=== PATIENT | female | born 1930 | race Caucasian/White ===

== ENCOUNTER 2016-11-20 12:58 | Emergency (ER) | payer MEDICARE ==
--- NOTE | 2016-11-20 13:28 | ED ---
General Adult HPI - General Chief complaint: Abdominal Pain Stated complaint: Poss Bowel Obstruction Time Seen by Provider: 11/20/16 13:08 Source: patient, RN notes reviewed Mode of arrival: ambulatory Limitations: no limitations - History of Present Illness Initial comments: Chief complaint history of present illness is 89-year-old female here with a complaint of no bowel movement for several days. She reports her last normal bowel movement was 2360. Otherwise she normally has loose stools. She said initially it looks like rope and then became wormlike and then just watery. Denies any cramping or pain but feels bloated. This does not change her appetite. No significant change in weight. She has seen her wholesale parts salesperson in the past 2 weeks. When she called the office and stated she had not bowel movement for several days suggested she try to use magnesium citrate. She states she continued to have loose stool only. - Related Data Home Medications Medication Instructions Recorded Confirmed Artificial Tears-Hypromellose 1 drop BOTH EYES QID PRN 11/20/16 11/20/16 [Artificial Tear Drops] Calcium Carbonate [Calcium] 600 mg PO DAILY 11/20/16 11/20/16 Levothyroxine Sodium [Synthroid] 50 mcg PO DAILY 11/20/16 11/20/16 Magnesium Oxide [Mag-Ox] 400 mg PO DAILY 11/20/16 11/20/16 [place]-3 Fatty Acids/Fish Oil [Fish 1 cap PO DAILY 11/20/16 11/20/16 Oil 1,000 mg Softgel] Vit C/E/Zn/Coppr/Lutein/Zeaxan 1 cap PO DAILY 11/20/16 11/20/16 [Preservision Areds 2 Softgel] Allergies Allergy/AdvReac Type Severity Reaction Status Date / Time No Known Allergies Allergy Verified 11/20/16 13:40 Review of Systems ROS Statement: Those systems with pertinent positive or pertinent negative responses have been documented in the HPI. Review of systems. Patient denies any headache no visual acuity changes no chest pain or shortness of breath. No difficulty urinating. States she feels bloated. Has had for months on-again off-again loose stool. Has seen her wholesale parts salesperson several times during that time. Last colonoscopy was 5 years ago. Her biggest complaint is feeling bloated. Denies pain. Denies change in appetite. All systems reviewed. Past medical problems hypothyroidism. Surgeries right elbow after an injury. Cataract surgery. Denies any other surgeries. Family history no cancers. Patient denies ALLERGIES nonsmoker drinks rarely socially. ROS Other: All systems not noted in ROS Statement are negative. Past Medical History Past Medical History: Thyroid Disorder History of Any Multi-Drug Resistant Organisms: None Reported Past Surgical History: Orthopedic Surgery Additional Past Surgical History / Comment(s): right elbow surgery Past Psychological History: No Psychological Hx Reported Smoking Status: Never smoker Past Alcohol Use History: None Reported Past Drug Use History: None Reported General Exam - General Exam Comments Initial Comments: General: The patient is awake and alert, in no distress, and does not appear acutely ill. Chief complaint is loose stool and bloating. No pain. No change in appetite. Vital signs temperature 97.4 pulse 69 respiratory rate 18 pulse ox 96 % room air blood pressure 114/64 Eye: Pupils are equal, round and reactive to light, extra-ocular movements are intact ; there is normal conjunctiva bilaterally. No signs of icterus. Evidence of cataract surgery. Ears, nose, mouth and throat: There are moist mucous membranes and no oral lesions. Neck: The neck is supple, there is no tenderness. Cardiovascular: There is a regular rate and rhythm. No murmur, rub or gallop is appreciated. Respiratory: Lungs are clear to auscultation, respirations are non-labored, breath sounds are equal. No wheezes, stridor, rales, or rhonchi. Gastrointestinal: Soft, non-tender abdomen without masses or organomegaly noted. She does appear bloated but not uncomfortable. There is no rebound or guarding present. No CVA tenderness. Bowel sounds are unremarkable. Back: There is no tenderness to palpation in the midline. There is no obvious deformity. No rashes noted. Musculoskeletal: Normal ROM, no tenderness, There is no pedal edema. There is no calf tenderness or swelling. Sensation intact. Pulses equal bilaterally 2+. Neurological: No neuro deficits, denies any balance problems. Alert and oriented. Skin: Skin is warm and dry and no rashes or lesions are noted. Limitations: no limitations Course Vital Signs 11/20/16 13:00 Temperature 97.4 F L Pulse Rate 69 Respiratory 18 Rate Blood Pressure 114/64 O2 Sat by Pulse 96 Oximetry Medical Decision Making - Medical Decision Making Medical decision making patient's white count 4.1 hemoglobin 12 hematocrit 37. Potassium 4.5. BUN 18 creatinine 0.84 the GFR greater than 60. Glucose 88. Amylase mildly elevated 145. Lipase 247. X-ray of the abdomen were done and reviewed by radiologist his impression is there is moderate S St. scoliosis convex to the right paralumbar region and to the left midthoracic region. Lung bases are clear. There are multiple nondistended loops of large and small bowel throughout the abdomen. There are multiple air-fluid levels. There is no free air. There are phleboliths within the pelvis. Impression; findings most consistent with generalized ileus. As read by Dr. Yip Examination was done with the help of Tonja JUAREZ. Anus was tight but no masses palpable within the examining finger. Stool was negative for stool guaiac. A she will be told to continue with her daily diet use Gaviscon to decrease gassy buildup with the food she is eating. She again denies any abdominal pain just below. Passes gas daily and has loose stool daily. - Lab Data Result diagrams: 11/20/16 13:41 11/20/16 13:41 Lab Results 11/20/16 11/20/16 Range/Units 13:41 13:41 WBC 4.1 (3.8-10.6) k/uL RBC 3.63 L (3.80-5.40) m/uL Hgb 12.4 (11.4-16.0) gm/dL Hct 37.5 (34.0-46.0) % MCV 103.4 H (80.0-100.0) fL MCH 34.3 (25.0-35.0) pg MCHC 33.2 (31.0-37.0) g/dL RDW 14.7 (11.5-15.5) % Plt Count 293 (150-450) k/uL Neutrophils % 63 % Lymphocytes % 26 % Monocytes % 8 % Eosinophils % 1 % Basophils % 0 % Neutrophils # 2.6 (1.3-7.7) k/uL Lymphocytes # 1.1 (1.0-4.8) k/uL Monocytes # 0.3 (0-1.0) k/uL Eosinophils # 0.0 (0-0.7) k/uL Basophils # 0.0 (0-0.2) k/uL Macrocytosis Slight Sodium 135 L (137-145) mmol/L Potassium 4.5 (3.5-5.1) mmol/L Chloride 102 (98-107) mmol/L Carbon Dioxide 23 (22-30) mmol/L Anion Gap 10 mmol/L BUN 18 H (7-17) mg/dL Creatinine 0.84 (0.52-1.04) mg/dL Est GFR (MDRD) Af Amer >60 (>60 ml/min/1.73 sqM) Est GFR (MDRD) Non-Af >60 (>60 ml/min/1.73 sqM) Glucose 88 (74-99) mg/dL Calcium 9.0 (8.4-10.2) mg/dL Total Bilirubin 0.5 (0.2-1.3) mg/dL AST 26 (14-36) U/L ALT 30 (9-52) U/L Alkaline Phosphatase 57 (38-126) U/L Total Protein 6.8 (6.3-8.2) g/dL Albumin 4.0 (3.5-5.0) g/dL Amylase 145 H (30-110) U/L Lipase 247 (23-300) U/L Disposition Clinical Impression: Frequent loose stools Disposition: HOME SELF-CARE Condition: Fair Instructions: Chronic Diarrhea (ED) Additional Instructions: Follow with her family physician, follow-up with your wholesale parts salesperson. Use Gaviscon, and Pepto-Bismol control loose stool. Referrals: Jn Morris MD [Primary Care Provider] - 1-2 days Time of Disposition: 14:40
[2016-11-20 13:56] LABS: Basophils % (A) 0 %; CH 35.1; CHCM 34.1; Eosinophils % (A) 1 %; HCT 37.5 % (34.0-46.0); HDW 2.25; HGB 12.4 gm/dL (11.4-16.0); Luc # (Auto) 0.08; Luc % (Auto) 2; Lymphocytes # (A) 1.1 k/uL (1.0-4.8); Lymphocytes % (A) 26 %; MCH 34.3 pg (25.0-35.0); MCHC 33.2 g/dL (31.0-37.0); MCV 103.4 fL (80.0-100.0); Macrocytosis Slight; Mean Platelet Volume 7.3; Monocytes # (A) 0.3 k/uL (0-1.0); Monocytes % (A) 8 %; Neutrophils # (A) 2.6 k/uL (1.3-7.7); Neutrophils % (A) 63 %; RBC 3.63 m/uL (3.80-5.40); RDW 14.7 % (11.5-15.5); WBC 4.1 k/uL (3.8-10.6); WBC (Perox) 4.24
--- NOTE | 2016-11-20 14:02 | XR ---
EXAMINATION TYPE: XR abdomen complete w decub , 3 VIEWS DATE OF EXAM ORDERED: 11/20/2016 HISTORY: Usually has loose stool, feels bloated. COMPARISON: None. FINDINGS: There is a moderate S-shaped scoliosis convex to the right in the lumbar region and to the left in the thoracic region. The lung bases are clear. There are multiple nondistended loops of large and small bowel throughout the abdomen. There are mult iple air-fluid levels. There is no free air. There are phleboliths within the pelvis. IMPRESSION: FINDINGS MOST CONSISTENT WITH GENERALIZED ILEUS.
[2016-11-20 14:05] LABS: ALT 30 U/L (9-52); AST 26 U/L (14-36); Alkaline Phosphatase 57 U/L (38-126); Amylase 145 U/L (30-110); Anion Gap 10 mmol/L; Blood Urea Nitrogen 18 mg/dL (7-17); Carbon Dioxide 23 mmol/L (22-30); Chloride 102 mmol/L (98-107); Glucose 88 mg/dL (74-99); Non-African American GFR(MDRD) >60 (>60 ml/min/1.73 sqM); Potassium 4.5 mmol/L (3.5-5.1); Sodium 135 mmol/L (137-145); Total Bilirubin 0.5 mg/dL (0.2-1.3); Total Protein 6.8 g/dL (6.3-8.2)
[2016-11-20 15:02] VITALS: BP 139/78; PULSE 80; RESP 20; TEMP 98.5
== END 2016-11-20 15:02 | disposition home or self-care (01) ==
LOC: EC 12:58
DX: R19.7 Diarrhea, unspecified (principal); E07.9 Disorder of thyroid, unspecified; Z79.899 Other long term (current) drug therapy
CPT/HCPCS: 36415; 74020; 80053; 82150; 83690; 85025; 99284

== ENCOUNTER 2017-03-16 03:20 | Inpatient (IN) | payer MEDICARE ==
[2017-03-16] MEDS ORDERED: HYDROmorphone 0.5 MG/0.5 ML SYRINGE ONE (04:30)
--- NOTE | 2017-03-16 06:27 | XR ---
EXAM: XR Chest, 1 View CLINICAL HISTORY: No prior, left hip pain after fall TECHNIQUE: Frontal view of the chest. COMPARISON: No relevant prior studies available. FINDINGS: Lungs: Unremarkable. No consolidation. Pleural space: Unremarkable. No pneumothorax. Heart: Mild cardiomegaly. Mediastinum: Unremarkable. Bones/joints: Unremarkable. Other findings: IMPRESSION: No acute findings.
--- NOTE | 2017-03-16 06:28 | XR ---
EXAM: XR Left Hip With Pelvis When Performed, 2 or 3 Views CLINICAL HISTORY: No prior, left hip pain after fall TECHNIQUE: Two or three views of the left hip, with pelvis when performed. COMPARISON: No relevant prior studies available. FINDINGS: Comminuted intertrochanteric fracture of the left hip. lesser trochanteric fragment noted. Femoral acetabular joints are intact bilaterally. Severe right hip arthrosis noted. Pelvic ring is intact. Soft tissues are within normal limits. IMPRESSION: Comminuted intertrochanteric fracture of the left hip. lesser trochanteric fragment noted.
[2017-03-16] MEDS ORDERED: SODIUM CHLORIDE 0.9% 1,000 ML IV SCH (08:30)
[2017-03-16] MEDS ORDERED: ONDANSETRON 4 MG/2 ML VIAL IVP PRN (09:22)
[2017-03-16 09:23] LABS: HCT 30.8 % (34.0-46.0); HGB 10.1 gm/dL (11.4-16.0); MCH 33.1 pg (25.0-35.0); MCHC 32.7 g/dL (31.0-37.0); MCV 101.3 fL (80.0-100.0); Macrocytosis Slight; Mean Platelet Volume 7.9; Platelet Count 203 k/uL (150-450); RBC 3.04 m/uL (3.80-5.40); RDW 14.9 % (11.5-15.5); WBC 3.4 k/uL (3.8-10.6)
--- NOTE | 2017-03-16 09:53 | CONS ---
CONSULTATION ATTENDING PHYSICIAN: Dr. Plascencia. CONSULTING PHYSICIAN: Dr. Kiran Morris. REASON FOR CONSULTATION: Consultation regarding preop medical evaluation. HISTORY OF PRESENT ILLNESS: This is an 86-year-old female was brought to the emergency room after a fall at home. She got up to go to the bathroom, felt unsteady, fell. She denied any headache, dizziness, vertigo. She did have loss of balance. Denied any other injuries or loss of consciousness, etc. She does have a small laceration of the left elbow. The patient upon evaluation was noted to have an intertrochanteric left hip fracture. The patient is admitted to the hospital in view of this. I have been asked to see the patient preoperatively. PAST MEDICAL HISTORY: Primarily negative for any major illnesses. The patient has no history of hypertension, diabetes, any lung disease, liver disease, kidney disease. No history of any ulcers, TB, hepatitis. No history of any rheumatic fever, myocardial infarction, CVA. No history of any peripheral arterial disease. She does have history of hypothyroidism, on medical replacement therapy in a euthyroid status. Also history of IBS with predominant constipation. The patient has been seen by GI and does follow with them. PAST SURGICAL HISTORY: Significant for a right elbow surgery. Otherwise, no other surgeries. No complications during the surgery. PERSONAL HISTORY: A nonsmoker. Alcohol occasional social. ALLERGIES: None known. MEDICATIONS: Include multivitamins, eye vitamins, magnesium, levothyroxine 50 mcg daily, calcium 600 mg daily, and uses Artificial Tears. SOCIAL HISTORY: Patient is , lives alone. FAMILY MEDICAL HISTORY: Has 2 sons and daughter in good health. One son had necrotizing fasciitis at 1 time, doing better. REVIEW OF SYSTEMS: Neuro denies any headaches, dizziness. No double vision. Does have decreased vision due to macular degeneration. CARDIAC: No chest pain, angina, palpitations. Respiratory: Short of breath. Has had a recent cold congestion and had been on Augmentin. GI no nausea, vomiting, abdominal pain, diarrhea. Has chronic constipation, uses MiraLAX and Senokot combinations with Linzess off and on. : No symptoms of dysuria, hematuria, urgency, frequency. Extremities denies edema. Does have pain in the left hip. CONSTITUTIONAL: No fever chills. Hematological: No anemia or bleeding disorder. Endocrine: No history of diabetes mellitus, history of hypothyroidism, on replacement therapy. SKIN: No breakdown. No skin ulcerations. CONSTITUTIONAL: No fever chills. PHYSICAL EXAMINATION: Pleasant 86-year-old female, at present, no distress. Vital signs reveals temperature 98.5, pulse 73, respirations 16, blood pressure 115/61, pulse ox 94%. HEENT: Normocephalic. NECK: Supple. No JVD. No carotid bruits. No thyromegaly. CHEST: Clear to auscultation. Cardiac: Normal S1, S2 with no gallops, murmurs, regular rhythm. ABDOMEN: Soft. No palpable masses. Bowel sounds normal. No organomegaly. No abdominal bruits. Extremities reveal no edema. The patient left leg immobilized. The patient left leg lying flat with the patient moving right hip. NEUROLOGIC: Awake, alert, oriented x3 with well coordinated movements upper extremities. Superficial laceration, left elbow. LABORATORY ASSESSMENT: None. EKG reveals sinus rhythm at 72 with a baseline artifacts. The patient's chest x- ray reveals no acute process. ASSESSMENT: 1. Left hip fracture. 2. History of hypothyroidism. 3. History of age-related macular degeneration, with decreased vision. 4. History of irritable bowel syndrome with chronic constipation. PLAN: Patient is stable to undergo the planned surgical procedure. Lab evaluations to be done. Patient will be hydrated. The patient's condition is discussed with the patient and daughter. The daughter is a nurse. Prognosis remains guarded. Will require rehabilitation. MMODL / IJN: [id number] /
[2017-03-16] MEDS: HYDROmorphone 0.5 MG/0.5 ML SYRINGE IVP PRN ×2 (10:07→23:33)
[2017-03-16] MEDS: SODIUM CHLORIDE 0.9% 1,000 ML IV SCH (10:11)
[2017-03-16 10:23] LABS: Anion Gap 11 mmol/L; Blood Urea Nitrogen 19 mg/dL (7-17); Calcium 8.2 mg/dL (8.4-10.2); Carbon Dioxide 22 mmol/L (22-30); Chloride 96 mmol/L (98-107); Glucose 103 mg/dL (74-99); Sodium 129 mmol/L (137-145)
--- NOTE | 2017-03-16 10:33 | P.HPOR ---
History of Present Illness H&P Date: 03/16/17 Chief Complaint: Left intertrochanteric hip fracture Patient is an 86-year-old female who presented to [facility] emergency room late last night with regards to a left hip injury. Patient apparently was going to the bathroom at home, when she got up she lost her balance and fell. She was unable to weight-bear after the fall, she was able to crawl to her falling contact her family. EMS to arrive, and to bring the patient to [facility]. Upon arrival, imaging and lab tests were done. Images demonstrated a minimally displaced left intertrochanteric hip fracture. Dr. Plascencia was contacted by the emergency room staff, the case was discussed. Patient was admitted under orthopedic care, internal medicine consult was placed for clearance. Patient was examined today on the surgical floor, she was lying in bed. She appears comfortable. She notes pain in the left hip with motion. She does note minimal pain involving the right knee. She actually have an appointment scheduled today to see Dr. Plascencia in the outpatient setting for her left shoulder. She notes no acute pain involving the bilateral upper extremities, cervical, thoracic or lumbar spine, right lower extremity. Patient states she does live at home by herself. She uses no assistive devices for ambulation. She does have a daughter and [id number] that around to help her. Patient denies any headaches, lightheadedness, chest pain, shortness of breath, abdominal discomfort, fever or chills. Review of Systems Constitutional: Reports as per HPI Past Medical History Past Medical History: Thyroid Disorder History of Any Multi-Drug Resistant Organisms: None Reported Past Surgical History: Orthopedic Surgery Additional Past Surgical History / Comment(s): right elbow surgery BACK SURGERY 1999 Smoking Status: Never smoker Medications and Allergies Home Medications Medication Instructions Recorded Confirmed Type Artificial Tears-Hypromellose 1 drop BOTH EYES QID PRN 11/20/16 03/16/17 History [Artificial Tear Drops] Calcium Carbonate [Calcium] 600 mg PO DAILY 11/20/16 03/16/17 History Levothyroxine Sodium [Synthroid] 50 mcg PO DAILY 11/20/16 03/16/17 History Magnesium Oxide [Mag-Ox] 400 mg PO DAILY 11/20/16 03/16/17 History [place]-3 Fatty Acids/Fish Oil [Fish 1 cap PO DAILY 11/20/16 03/16/17 History Oil 1,000 mg Softgel] Vit C/E/Zn/Coppr/Lutein/Zeaxan 1 cap PO DAILY 11/20/16 03/16/17 History [Preservision Areds 2 Softgel] Amoxic-Pot Clav 875-125Mg 1 tab PO BID 03/16/17 03/16/17 History [Augmentin 875-125] Linaclotide [Linzess] 145 mcg PO DAILY 03/16/17 03/16/17 History Polyethylene Glycol 3350 [Miralax] 17 gm PO BID 03/16/17 03/16/17 History Allergies Allergy/AdvReac Type Severity Reaction Status Date / Time No Known Allergies Allergy Verified 11/20/16 13:40 Physical Examination Left lower extremity: Obvious open lesions or sores are visualized. No significant flares soft tissue swelling or ecchymosis. There is obvious shortening and external rotation of the leg when compared to the contralateral side. No significant tenderness with palpation around the knee and foot and ankle. She is unable to straight leg raise, logroll maneuver reproduces pain in the left groin region. There is tenderness patient lateral aspect of the hip. Plantar flexion, dorsiflexion, EHL, FHL are intact. Her sensory exam to light touch is intact. Results - Labs Labs: Abnormal Lab Results - Last 24 Hours (Table) 03/16/17 Range/Units 09:07 WBC 3.4 L (3.8-10.6) k/uL RBC 3.04 L (3.80-5.40) m/uL Hgb 10.1 L (11.4-16.0) gm/dL Hct 30.8 L (34.0-46.0) % MCV 101.3 H (80.0-100.0) fL H & H 03/16/17 Range/Units 09:07 Hgb 10.1 L (11.4-16.0) gm/dL Hct 30.8 L (34.0-46.0) % Result Diagrams: 03/16/17 09:07 - Diagnostic results Hip x-ray: report reviewed, image reviewed Assessment and Plan Plan: Imaging: Multiple views of the left hip were obtained and reviewed. Images demonstrated a minimally displaced left intertrochanteric hip fracture. Assessment: 1. Minimally displaced left intertrochanteric hip fracture 2. Status post fall from standing Plan: I was able to discuss the case, including the physical exam findings and imaging studies Dr. Plascencia. Surgical intervention will be needed for this fracture, we are planning for an open reduction internal fixation procedure on 03/16/2017. I did discuss the case briefly, including risk and benefits and postoperative events with the patient at bedside today. She is in good understanding and would like to proceed. I mentioned to her that I would contact her daughter regarding the plan of treatment Obtain consent Nothing by mouth Nonweightbearing left lower extremity Placement catheter GI and DVT prophylaxis, likely initiate subcu medication after surgery Pain control Medical recommendations Further recommendations to follow Time with Patient: Less than 30
[2017-03-16] MEDS: LEVOTHYROXINE 50 MCG TAB PO SCH (12:29)
[2017-03-16] MEDS: VIT A,C & E-LUTEIN-MINERALS 1 EACH TAB PO SCH (12:29)
[2017-03-16] MEDS: FAMOTIDINE 20 MG TAB PO SCH ×2 (12:30→21:21)
[2017-03-16 12:45] LABS: INR 1.2 (<1.2); Prothrombin Time 11.5 sec (9.0-12.0)
[2017-03-16] MEDS ORDERED: IV FLUID CONTINUATION 1,000 ML IV ONE (14:40)
[2017-03-16] MEDS ORDERED: MIDAZOLAM 2 MG/2 ML VIAL ONE (16:11)
[2017-03-16] MEDS ORDERED: SODIUM CHLORIDE 0.9% 50 ML with ceFAZolin 2,000 MG IV ONE ×2 (16:11)
[2017-03-16] MEDS ORDERED: KETAMINE 10 MG/ML 20 ML VIAL ONE (16:11)
[2017-03-16] MEDS ORDERED: LACTATED RINGERS 1,000 ML IV ONE (16:57)
[2017-03-16] MEDS ORDERED: NALOXONE 0.4 MG/ML 1 ML VIAL IV PRN (17:26)
[2017-03-16] MEDS ORDERED: Acetaminophen-Codeine 300-30mg TAB PO PRN ×3 (17:26)
--- NOTE | 2017-03-16 17:26 | P.OP ---
Date of Procedure: 03/16/17 Preoperative Diagnosis: displaced left intertrochanteric femur fracture Postoperative Diagnosis: same Procedure(s) Performed: open reduction and internal fixation left intertrochanteric femur fracture Implants: Mairna 3-hole free lock, 135, 105 mm compression screw Anesthesia: spinal Surgeon: Wellington Plascencia Estimated Blood Loss (ml): 100 Pathology: none sent Condition: stable Disposition: PACU Indications for Procedure: the patient is an 86-year-old female who presents with left hip pain after fall at home sustaining a displaced left intertrochanteric femur fracture. a discussion of the risks and benefits of operative intervention was made with the patient and her family. the options proceed with surgery. operative risks to include infection, neurovascular injury, development of blood clots, possible development of nonunion/malunion and need for subsequent procedures was discussed. informed consent was obtained. Operative Findings: as below Description of Procedure: The patient was brought to the operating room and after induction of spinal anesthesia was placed supine on the fracture table. her left hip fracture was reduced with longitudinal traction and internal rotation of her left leg. this was verified with fluoroscopy on the AP and lateral views. the left lower extremity was prepped and draped in a normal fashion. a 10 cm incision was then made starting distal to the greater trochanter in line with the femoral shaft. skin and subcutaneous tissues were divided sharply. electrocautery was used for hemostasis. the fascia olga lidia was split made with the skin incision. the vastus lateralis fascia was split along its posterior margin and the muscle fibers bluntly dissected anteriorly. threaded guidepin was placed into the center- center portion of the femoral head and neck on the AP and lateral views. This was taken to within 5 mm of the articular surface. a triple reamer was used to a depth of 105 mm. a 105 mm compression screw was then inserted to within 5 mm of the articular surface. a 3-hole sideplate was then attached utilizing 4.5 mm cortical screws of the appropriate length. a short compression screw was inserted and the traction was released. final arthroscopic view showed adequate reduction of the fracture and compression. The implant appeared in good position. The wound was irrigated normal saline. The fascial olga lidia was closed with running #1 Vicryl suture. The subcutaneous tissues were reapproximated with interrupted 2-0 Vicryl sutures. The skin was reapproximated with domingo. A sterile dressing was applied. The patient was awoken from sedation and transferred to the recovery room in fair condition. Blood loss was estimated at 100 mL. No complications were incurred. sponge and needle counts were correct at the end the case.
[2017-03-16 19:25] LABS: Basophils % (A) 0 %; Eosinophils % (A) 0 %; HCT 27.5 % (34.0-46.0); HGB 9.2 gm/dL (11.4-16.0); Lymphocytes # (A) 0.6 k/uL (1.0-4.8); Lymphocytes % (A) 15 %; MCH 32.9 pg (25.0-35.0); MCHC 33.4 g/dL (31.0-37.0); MCV 98.4 fL (80.0-100.0); Mean Platelet Volume 7.2; Monocytes # (A) 0.2 k/uL (0-1.0); Monocytes % (A) 5 %; Neutrophils # (A) 3.4 k/uL (1.3-7.7); Neutrophils % (A) 79 %; Platelet Count 198 k/uL (150-450); RDW 13.9 % (11.5-15.5); WBC 4.3 k/uL (3.8-10.6)
[2017-03-16] MEDS ORDERED: TEMAZEPAM 15 MG CAP PO PRN (21:00)
[2017-03-16] MEDS: HEPARIN SODIUM,PORCINE 5,000 UNIT/ML 1 ML VIAL SQ SCH (21:21)
[2017-03-16] MEDS: Acetaminophen-Codeine 300-30mg TAB PO PRN (21:22)
--- NOTE | 2017-03-16 23:02 | FL ---
EXAMINATION TYPE: FL guidance operating room, XR Hip Complete LT DATE OF EXAM: 03/16/2017 CLINICAL HISTORY: Left hip fracture. TECHNIQUE: Fluoroscopy. Complete intraoperative 2 views left hip. COMPARISON: None. FINDINGS: Fluoroscopic guidance was provided during open reduction and internal fixation procedure p erformed by Dr. Plascencia. A total of 20 seconds of fluoroscopic time was utilized during the procedure and 3 spot images are acquired. Images acquired show placement of lateral fixating plate with 3 distal transverse fixating screws and larger femoral neck fixating screw through the intertrochanteric fracture of left proximal femur wit h satisfactory alignment on the intraoperative images obtained. IMPRESSION: As Above.
[2017-03-17] MEDS: Acetaminophen-Codeine 300-30mg TAB PO PRN ×4 (01:59→19:47)
[2017-03-17] MEDS: ceFAZolin IN SWFI 2 GM/20 ML SYRINGE IVP SCH ×2 (02:00→07:27)
[2017-03-17] MEDS: HYDROmorphone 0.5 MG/0.5 ML SYRINGE IVP PRN ×2 (03:20→22:30)
[2017-03-17] MEDS: SODIUM CHLORIDE 0.9% 1,000 ML IV SCH ×2 (03:26→06:42)
[2017-03-17] MEDS ORDERED: SODIUM CHLORIDE 0.9% 1,000 ML IV SCH (06:30)
[2017-03-17] MEDS: LEVOTHYROXINE 50 MCG TAB PO SCH (07:27)
[2017-03-17] MEDS: HEPARIN SODIUM,PORCINE 5,000 UNIT/ML 1 ML VIAL SQ SCH ×2 (07:27→15:43)
[2017-03-17] MEDS: FAMOTIDINE 20 MG TAB PO SCH (07:27)
--- NOTE | 2017-03-17 08:07 | P.PN ---
Subjective Progress Note Date: 03/17/17 Principal diagnosis: fracture left hip this 86-year-old female was admitted to the hospital yesterday following a fall at home. She sustained a fractured left hip. She did undergo ORIF yesterday. Labs done prior to surgery had shown hemoglobin of 10.1 with no evidence of active bleeding. She also had sodium 129. She hadn't been eating for the past couple days due to respiratory symptoms of cough congestion. The patient had been on Augmentin and had taken one dose. The patient has had no fever or chills. This morning she is doing well except her blood pressures running in the 80s and 90s urine output difficult to assess. She has no Erazo catheter. The patient is alert and oriented. Denies any other symptoms except for pain and discomfort if she moves her left hip. She does have a cough with some sputum production. Denies chest pain shortness of breath and no reported fever chills. Chest x-ray prior to surgery was negative. Patient encouraged to continue respiratory spirometry and is placed back on oral Augmentin. Her hemoglobin this morning is 9.2. Lytes are pending. REVIEW OF SYSTEMS: Neuro:[ Denies any headaches dizziness.] Psych: [Denies anxiety depression feels oriented.] Cardiac: [Denies chest pain and angina palpitations.] Respiratory: [Denies shortness of breath,has cough]. GI: [Denies nausea vomiting or abdominal pain. No diarrhea , no bowel movement yet.] :[ Denies dysuria hematuria.] Extremities:[ left hip pain. No edema.] Skin:[ Intact]. Constitutional: [No fever, chills.] Objective - Vital Signs Vital signs: Vital Signs Temp 97.8 F 03/17/17 06:57 Pulse 81 03/17/17 06:57 Resp 14 03/17/17 06:57 BP 88/44 03/17/17 06:57 Pulse Ox 99 03/17/17 06:57 Intake & Output 03/16/17 03/17/17 03/17/17 18:59 06:59 18:59 Intake Total 1100 Output Total 150 300 Balance 950 -300 Weight 64.41 kg Intake: IV 700 Intake, IV Titration 400 Amount Sodium Chloride 0.9% 1, 400 000 ml @ 100 mls/hr IV . Q10H [facility] Rx#:[id number] Output: Urine 50 300 Estimated Blood Loss 100 Other: # Voids 1 PHYSICAL EXAMINATION: Cooperative, at present in no acute distress. HEENT: [Neck supple. No JVD.] Chest: [Clear to auscultation,rhonchi clear with coughing]. Cardiac: [Normal S1-S2] [no gallops] [no murmur ]. Abdomen:[ Soft ][bowel sounds present.] Extremities: [No edema] pain with movements of the left hip ] Neurologically: [Awake, alert, oriented with well-coordinated movements upper extremities.] - Labs CBC & Chem 7: 03/16/17 18:51 03/16/17 09:07 Labs: Abnormal Lab Results - Last 24 Hours (Table) 03/16/17 03/16/17 03/16/17 Range/Units 09:07 09:07 09:07 WBC 3.4 L (3.8-10.6) k/uL RBC 3.04 L (3.80-5.40) m/uL Hgb 10.1 L (11.4-16.0) gm/dL Hct 30.8 L (34.0-46.0) % MCV 101.3 H (80.0-100.0) fL Lymphocytes # (1.0-4.8) k/uL INR 1.2 H (<1.2) Sodium 129 L (137-145) mmol/L Chloride 96 L (98-107) mmol/L BUN 19 H (7-17) mg/dL Glucose 103 H (74-99) mg/dL Calcium 8.2 L (8.4-10.2) mg/dL 03/16/17 Range/Units 18:51 WBC (3.8-10.6) k/uL RBC 2.80 L (3.80-5.40) m/uL Hgb 9.2 L (11.4-16.0) gm/dL Hct 27.5 L (34.0-46.0) % MCV (80.0-100.0) fL Lymphocytes # 0.6 L (1.0-4.8) k/uL INR (<1.2) Sodium (137-145) mmol/L Chloride (98-107) mmol/L BUN (7-17) mg/dL Glucose (74-99) mg/dL Calcium (8.4-10.2) mg/dL Assessment and Plan Assessment: ASSESSMENT: 1. [acute on chronic anemia secondary to blood loss postsurgery]. 2. [hyponatremia]. 3. [bronchitis]. 4. [hypothyroidism]. 5. age related macular degeneration]. 6. [status post left hip ORIF]. 7. [follow at home]. 8. [IBS with constipation]. PLAN: [continue present medical regimen. IV fluids, recheck sodium BUN creatinine. Patient's condition discussed with the patient and encouraged inspiratory spirometry and continue Augmentin.].
[2017-03-17 09:27] LABS: Anion Gap 8 mmol/L; Blood Urea Nitrogen 25 mg/dL (7-17); Calcium 7.6 mg/dL (8.4-10.2); Carbon Dioxide 24 mmol/L (22-30); Chloride 98 mmol/L (98-107); Glucose 114 mg/dL (74-99); Potassium 3.6 mmol/L (3.5-5.1); Sodium 130 mmol/L (137-145)
[2017-03-17] MEDS: SENNOSIDES-DOCUSATE SODIUM 1 EACH TAB PO SCH ×2 (10:12→21:15)
[2017-03-17] MEDS: VIT A,C & E-LUTEIN-MINERALS 1 EACH TAB PO SCH (10:12)
[2017-03-17] MEDS: AMOXIC-POT CLAV 875-125MG 1 EACH TAB PO SCH ×2 (10:12→21:16)
--- NOTE | 2017-03-17 12:05 | P.PN ---
Subjective Progress Note Date: 03/17/17 Principal diagnosis: Status post ORIF left IT hip fracture Patient is seen today resting in her hospital chair, she appears comfortable. She's ambulated minimally at this time. She notes being rather tired today. She denies any headaches, lightheadedness, chest pain or shortness of breath. Objective - Vital Signs Vital signs: Vital Signs Temp 97.8 F 03/17/17 06:57 Pulse 81 03/17/17 06:57 Resp 14 03/17/17 06:57 BP 98/54 03/17/17 10:17 Pulse Ox 99 03/17/17 06:57 Intake & Output 03/16/17 03/17/17 03/17/17 18:59 06:59 18:59 Intake Total 1100 1200 100 Output Total 150 300 Balance 950 900 100 Weight 64.41 kg Intake: IV 700 Intake, IV Titration 400 900 Amount Sodium Chloride 0.9% 1, 400 600 000 ml @ 100 mls/hr IV . Q10H [facility] Rx#:[id number] Sodium Chloride 0.9% 1, 300 000 ml @ 150 mls/hr IV . Q6H40M [facility] Rx#:[id number] Oral 300 100 Output: Urine 50 300 Estimated Blood Loss 100 Other: Voiding Method Bedpan # Voids 1 2 - Exam Left lower extremity: Incision is clean, dry and intact. Debary are all in good position. Some soft tissue swelling noted along the lateral aspect of the hip. Plantar flexion , dorsiflexion, EHL, FHL are intact. Dorsal pedis pulses 2+, sensory exam to light touch is intact. - Labs CBC & Chem 7: 03/16/17 18:51 03/17/17 08:39 Labs: Abnormal Lab Results - Last 24 Hours (Table) 03/16/17 03/16/17 03/17/17 Range/Units 09:07 18:51 08:39 RBC 2.80 L (3.80-5.40) m/uL Hgb 9.2 L (11.4-16.0) gm/dL Hct 27.5 L (34.0-46.0) % Lymphocytes # 0.6 L (1.0-4.8) k/uL INR 1.2 H (<1.2) Sodium 130 L (137-145) mmol/L BUN 25 H (7-17) mg/dL Glucose 114 H (74-99) mg/dL Calcium 7.6 L (8.4-10.2) mg/dL Assessment and Plan Plan: Assessment: 1. Postop day #1 status post left ORIF IT femur fracture Plan: 1. Pain control, continue some low-dose oral medication 2. Continue work physical therapy 3. GI and DVT prophylaxis 4. Medical recommendations 5. Daily dressing changes 6. Discharge planning: await discharge to rehab when stable Time with Patient: Less than 30
[2017-03-18] MEDS: Acetaminophen-Codeine 300-30mg TAB PO PRN ×3 (02:56→18:19)
[2017-03-18] MEDS: HEPARIN SODIUM,PORCINE 5,000 UNIT/ML 1 ML VIAL SQ SCH ×2 (02:56→09:18)
[2017-03-18] MEDS: LEVOTHYROXINE 50 MCG TAB PO SCH (05:48)
[2017-03-18 07:15] LABS: Basophils % (A) 0 %; Eosinophils % (A) 0 %; Lymphocytes # (A) 1.1 k/uL (1.0-4.8); Lymphocytes % (A) 34 %; MCH 32.8 pg (25.0-35.0); MCHC 32.2 g/dL (31.0-37.0); MCV 101.8 fL (80.0-100.0); Macrocytosis Slight; Mean Platelet Volume 8.9; Monocytes # (A) 0.1 k/uL (0-1.0); Monocytes % (A) 4 %; Neutrophils % (A) 60 %; Platelet Count 136 k/uL (150-450); RBC 1.83 m/uL (3.80-5.40); RDW 14.9 % (11.5-15.5); WBC 3.3 k/uL (3.8-10.6)
[2017-03-18 07:24] LABS: HCT 18.6 % (34.0-46.0)
[2017-03-18 07:57] LABS: Anion Gap 3 mmol/L; Blood Urea Nitrogen 20 mg/dL (7-17); Calcium 7.7 mg/dL (8.4-10.2); Carbon Dioxide 24 mmol/L (22-30); Chloride 103 mmol/L (98-107); Glucose 85 mg/dL (74-99); Potassium 3.8 mmol/L (3.5-5.1); Sodium 130 mmol/L (137-145)
[2017-03-18] MEDS: APIXABAN 2.5 MG TABLET PO SCH ×2 (09:13→20:12)
[2017-03-18] MEDS: SENNOSIDES-DOCUSATE SODIUM 1 EACH TAB PO SCH ×2 (09:13→20:12)
[2017-03-18] MEDS: VIT A,C & E-LUTEIN-MINERALS 1 EACH TAB PO SCH (09:13)
[2017-03-18] MEDS: AMOXIC-POT CLAV 875-125MG 1 EACH TAB PO SCH ×2 (09:13→20:12)
[2017-03-18] MEDS: FAMOTIDINE 20 MG TAB PO SCH (09:13)
[2017-03-18] MEDS: SODIUM CHLORIDE 0.9% 1,000 ML IV SCH (09:14)
--- NOTE | 2017-03-18 12:21 | P.PN ---
Subjective Progress Note Date: 03/18/17 Principal diagnosis: Status post ORIF left IT hip fracture Patient is seen today resting in her hospital chair, she appears comfortable. She denies any headaches, lightheadedness, chest pain or shortness of breath. Objective - Vital Signs Vital signs: Vital Signs Temp 98.0 F 03/18/17 12:06 Pulse 63 03/18/17 12:06 Resp 16 03/18/17 12:06 BP 100/54 03/18/17 12:06 Pulse Ox 98 03/18/17 12:06 Intake & Output 03/17/17 03/18/17 03/18/17 18:59 06:59 18:59 Intake Total 1460 150 240 Output Total 400 Balance 1460 -250 240 Intake: Intake, IV Titration 1000 Amount Sodium Chloride 0.9% 1, 1000 000 ml @ 150 mls/hr IV . Q6H40M [facility] Rx#:[id number] Oral 460 150 240 Blood Product 0 Rc As-1 Unit 0 [id number] Output: Urine 400 Other: Voiding Method Bedside Commode Bedpan # Voids 1 - Exam Left lower extremity: Incision is clean, dry and intact. Saman are all in good position. Some soft tissue swelling noted along the lateral aspect of the hip. Plantar flexion , dorsiflexion, EHL, FHL are intact. Dorsal pedis pulses 2+, sensory exam to light touch is intact. - Labs CBC & Chem 7: 03/18/17 06:50 03/18/17 06:50 Labs: Abnormal Lab Results - Last 24 Hours (Table) 03/18/17 03/18/17 03/18/17 Range/Units 06:50 06:50 08:25 WBC 3.3 L (3.8-10.6) k/uL RBC 1.83 L (3.80-5.40) m/uL Hgb 6.0 L* D (11.4-16.0) gm/dL Hct 18.6 L* (34.0-46.0) % MCV 101.8 H (80.0-100.0) fL Plt Count 136 L (150-450) k/uL Sodium 130 L (137-145) mmol/L BUN 20 H (7-17) mg/dL Calcium 7.7 L (8.4-10.2) mg/dL Crossmatch See Detail Assessment and Plan Plan: Assessment: 1. Postop day #2 status post left ORIF IT femur fracture Plan: 1. Pain control, continue low-dose oral medication 2. Continue work physical therapy 3. GI and DVT prophylaxis 4. Medical recommendations 5. Patient receiving 1 unit of blood due to decreased hemoglobin 6. Daily dressing changes 7. Discharge planning: await discharge to rehab when stable Time with Patient: Less than 30
[2017-03-18] MEDS: HYDROmorphone 0.5 MG/0.5 ML SYRINGE IVP PRN ×2 (15:22→20:12)
[2017-03-18] MEDS ORDERED: BISACODYL 10 MG SUPP RECTAL STA (15:39)
[2017-03-18] MEDS ORDERED: WARFARIN 5 MG TAB PO SCH (18:00)
--- NOTE | 2017-03-18 19:52 | PN ---
PROGRESS NOTE CHIEF COMPLAINT: Re-evaluation. HISTORY OF PRESENT ILLNESS: This is an 86-year-old female who was admitted to undergo left hip ORIF. The patient has been doing well. She has evidence of increased anemia. Her hemoglobin is down to 6. REVIEW OF SYSTEMS: NEURO: Denies any headaches, dizziness. PSYCH: No anxiety. CARDIAC: No chest pain, angina, palpitation. RESPIRATORY: Denies shortness of breath, cough. GI: No nausea, vomiting. Appetite down. No abdominal pain, diarrhea. Patient is constipated. : No symptoms of dysuria, hematuria. Patient's nurse reported later that patient was unable to void and then evidence of 1200 mL of urine. EXTREMITIES: Pain in the left hip. CONSTITUTIONAL: No fever, chills. PHYSICAL EXAMINATION: Pleasant female in no distress. Vital signs revealed temperature 98.1, pulse 65, respirations 16, blood pressure 94/50, pulse 97% on 2 L. HEENT: Normocephalic. NECK: No JVD. CHEST: Clear to auscultation. CARDIAC: Normal S1, S2 with no gallops. Systolic murmur 2/6, left sternal border. ABDOMEN: Soft. Bowel sounds present. Extremities reveal no edema, right leg. Left thigh has significant tense edema. NEUROLOGIC: Awake, alert, oriented with well-coordinated movements. LABORATORY ASSESSMENT: White count was 3.3. Hemoglobin is down to 6. Platelet count is down from 203 to 136. Sodium 130, BUN 20, creatinine 0.71. ASSESSMENT: 1. Anemia secondary to acute blood loss post surgery. 2. Thrombocytopenia. 3. Hyponatremia. 4. Prerenal azotemia. PLAN: The patient is clinically stable. Continue present medical regimen. Transfuse 1 unit of packed red cells. Recheck CBC in the morning. The patient's prognosis remains guarded. Condition discussed with the patient. Will discontinue the patient's heparin due to significant drop in her platelet count from 203,000 to 136. We will start the patient on Eliquis 2.5 b.i.d. Patient's condition was discussed with the patient. Prognosis guarded. MMODL / IJN: [id number] /
[2017-03-19] MEDS: HYDROmorphone 0.5 MG/0.5 ML SYRINGE IVP PRN ×5 (01:49→20:46)
[2017-03-19] MEDS: SODIUM CHLORIDE 0.9% 1,000 ML IV SCH ×2 (02:11→08:45)
[2017-03-19] MEDS: Acetaminophen-Codeine 300-30mg TAB PO PRN ×3 (03:01→12:14)
[2017-03-19] MEDS: LEVOTHYROXINE 50 MCG TAB PO SCH (05:27)
[2017-03-19] MEDS: FAMOTIDINE 20 MG TAB PO SCH (08:50)
[2017-03-19] MEDS: APIXABAN 2.5 MG TABLET PO SCH ×2 (08:50→20:45)
[2017-03-19] MEDS: AMOXIC-POT CLAV 875-125MG 1 EACH TAB PO SCH ×2 (08:50→20:45)
[2017-03-19] MEDS: SENNOSIDES-DOCUSATE SODIUM 1 EACH TAB PO SCH ×2 (08:50→20:46)
[2017-03-19] MEDS: VIT A,C & E-LUTEIN-MINERALS 1 EACH TAB PO SCH (08:50)
[2017-03-19 09:59] LABS: Basophils % (A) 0 %; Eosinophils % (A) 0 %; HCT 22.3 % (34.0-46.0); HGB 7.5 gm/dL (11.4-16.0); Lymphocytes # (A) 0.5 k/uL (1.0-4.8); Lymphocytes % (A) 23 %; MCHC 33.6 g/dL (31.0-37.0); Monocytes # (A) 0.1 k/uL (0-1.0); Monocytes % (A) 5 %; Neutrophils # (A) 1.6 k/uL (1.3-7.7); Neutrophils % (A) 70 %; Platelet Count 145 k/uL (150-450); RBC 2.34 m/uL (3.80-5.40); RDW 15.4 % (11.5-15.5); WBC 2.4 k/uL (3.8-10.6)
[2017-03-19 10:01] LABS: MCV 95.2 fL (80.0-100.0)
[2017-03-19 10:16] LABS: Anion Gap 7 mmol/L; Blood Urea Nitrogen 15 mg/dL (7-17); Calcium 7.7 mg/dL (8.4-10.2); Carbon Dioxide 23 mmol/L (22-30); Chloride 100 mmol/L (98-107); Glucose 127 mg/dL (74-99); Potassium 3.5 mmol/L (3.5-5.1); Sodium 130 mmol/L (137-145)
--- NOTE | 2017-03-19 10:40 | P.PN ---
Progress Note - Text Progress Note Date: 03/19/17 S: The patient has no complaints. They deny shortness of breath or chest pain. O: Afebrile, vital signs stable Homans negative left lower extremity Distal neurovascular status intact in the operative extremity Incision clean, dry , and intact A/P: Status post ORIF left intertrochanteric femur fracture Acute blood loss anemia-Continue to monitor hemoglobin Urinary retention-Erazo catheter in place Medical management DVT prophylaxis Discharge planning
--- NOTE | 2017-03-19 11:41 | P.PN ---
Subjective Progress Note Date: 03/19/17 Principal diagnosis: fracture left hip Chief complaint: Reevaluation History present illness: This 86-year-old female was admitted to the hospital following a fall at home and fractured left hip. The patient is feeling some better today. She was transfused 1 unit of packed red cells yesterday. Her hemoglobin is 7.5 platelet counts improved to 145. Patient's sodium remained stable at 1:30 but the renal functions improved. She did have urinary retention requiring Erazo catheter. Patient did have a bowel movement after being given a Dulcolax suppository yesterday. Patient overall feels better. She does have a cough and congestion. No associated fever. She is on Augmentin. REVIEW OF SYSTEMS: Neuro: Denies any headaches dizziness. Psych: Denies anxiety depression feels oriented. Cardiac: Denies chest pain and angina palpitations. Respiratory: Denies shortness of breath does have a cough. GI: Denies nausea vomiting or abdominal pain. No diarrhea or constipation, no bowel movement yet. : Denies dysuria hematuria. Had urinary retention and has Erazo catheter Extremities: Pain left hip especially with weightbearing Skin: Intact. Constitutional: No fever, chills. Objective - Vital Signs Vital signs: Vital Signs Temp 98.6 F 03/19/17 07:53 Pulse 76 03/19/17 07:53 Resp 16 03/19/17 07:53 BP 118/56 03/19/17 07:53 Pulse Ox 98 03/19/17 07:53 Intake & Output 03/18/17 03/19/17 03/19/17 18:59 06:59 18:59 Intake Total 1170 998 180 Output Total 1200 1050 Balance -30 -52 180 Intake: IV 480 758 Sodium Chloride 0.9% 1, 480 758 000 ml @ 60 mls/hr IV . [id number] [facility] Rx#:[id number] Oral 380 240 180 Blood Product 310 Rc As-1 Unit 310 [id number] Output: Urine 1200 1050 Straight 1200 Other: Voiding Method Bedpan # Bowel Movements 1 PHYSICAL EXAMINATION: Cooperative, at present in no acute distress. HEENT: Neck supple. No JVD. Chest: Scattered rhonchi which clear with cough Cardiac: Normal S1-S2 no gallops no murmur . Abdomen: Soft bowel sounds present. Extremities: Edema left thigh Neurologically: Awake, alert, oriented with well-coordinated movements both upper extremities. - Labs CBC & Chem 7: 03/19/17 09:12 03/19/17 09:12 Labs: Abnormal Lab Results - Last 24 Hours (Table) 03/18/17 03/19/17 03/19/17 Range/Units 08:25 09:12 09:12 WBC 2.4 L (3.8-10.6) k/uL RBC 2.34 L (3.80-5.40) m/uL Hgb 7.5 L D (11.4-16.0) gm/dL Hct 22.3 L (34.0-46.0) % Plt Count 145 L (150-450) k/uL Lymphocytes # 0.5 L (1.0-4.8) k/uL Sodium 130 L (137-145) mmol/L Glucose 127 H (74-99) mg/dL Calcium 7.7 L (8.4-10.2) mg/dL Crossmatch See Detail Assessment and Plan Assessment: ASSESSMENT: 1. Anemia secondary to acute blood loss 2. Thrombocytopenia improving 3. Chronic leukopenia 4. Hyponatremia 5. Acute urinary retention 6. Tracheobronchitis 7. Irritable bowel syndrome with constipation 8. Age-related macular degeneration Plan: Continue present medical regimen discontinue IV fluids. Add updrafts. Patient condition discussed with the patient patient does have macular degeneration, some decreased hearing, scoliosis of the spine. I believe all these along with her age a contributing to worsening unsteadiness. She has no true vertigo, no postural dizziness. She is on no medications except for laxatives and eye vitamins. Patient is looking for solution to resolve her unsteadiness. Patient educated regarding this that the best option is some physical therapy and using a walker or a cane to help steady her. Fall precautions reviewed continue Augmentin and continue anticoagulation
[2017-03-19] MEDS ORDERED: ALBUTEROL NEBULIZED 2.5 MG/3 ML INHALATION PRN (11:42)
[2017-03-19] MEDS: ALBUTEROL NEBULIZED 2.5 MG/3 ML INHALATION SCH ×3 (12:11→20:24)
[2017-03-19] MEDS: ACETAMINOPHEN TAB 325 MG TAB PO PRN (20:45)
[2017-03-20] MEDS: ACETAMINOPHEN TAB 325 MG TAB PO PRN ×4 (02:25→21:04)
[2017-03-20] MEDS: HYDROmorphone 0.5 MG/0.5 ML SYRINGE IVP PRN ×3 (02:26→11:40)
[2017-03-20] MEDS: LEVOTHYROXINE 50 MCG TAB PO SCH (05:33)
[2017-03-20] MEDS: ALBUTEROL NEBULIZED 2.5 MG/3 ML INHALATION SCH ×4 (07:57→20:24)
[2017-03-20] MEDS ORDERED: BISACODYL 10 MG SUPP RECTAL STA (08:59)
[2017-03-20] MEDS: VIT A,C & E-LUTEIN-MINERALS 1 EACH TAB PO SCH (09:31)
[2017-03-20] MEDS: AMOXIC-POT CLAV 875-125MG 1 EACH TAB PO SCH ×2 (09:31→21:05)
[2017-03-20] MEDS: SENNOSIDES-DOCUSATE SODIUM 1 EACH TAB PO SCH ×2 (09:31→21:05)
[2017-03-20] MEDS: FAMOTIDINE 20 MG TAB PO SCH (09:31)
[2017-03-20] MEDS: APIXABAN 2.5 MG TABLET PO SCH ×2 (09:31→21:04)
--- NOTE | 2017-03-20 09:33 | P.PN ---
Subjective Progress Note Date: 03/20/17 Principal diagnosis: fracture left hip This 86-year-old female was admitted to the hospital following a left fracture. Patient does have pain in the left hip. She has been out sitting up in a chair yesterday. She does complain of dizziness. He also complains of some nausea. The patient was given only Tylenol this morning. Advised not to take Tylenol with Codeine. Patient hasn't had a bowel movement for 2 days for given a suppository again today. Her intake is poor. Encouraged at least 3 ensures a day. Patient has had no fever. Her cough is present. She is receiving updrafts and lungs sound better today. The patient is on anticoagulation. Her Erazo catheter will be discontinued today and monitor again for any urinary retention recheck patient's electrolytes BUN creatinine and CBC today. REVIEW OF SYSTEMS: Neuro: Denies any headaches Dizziness As a Sensation of Unsteadiness . Psych: Denies anxiety depression feels oriented. Cardiac: Denies chest pain and angina palpitations. Respiratory: Denies shortness of breath cough some better. GI: nausea with no vomiting or abdominal pain. No diarrhea , no bowel movement yet. : Denies dysuria hematuria. h As IDC Extremities: Left hip pain. Left thigh edema.] Skin: Intact. Constitutional: No fever, chills. Objective - Vital Signs Vital signs: Vital Signs Temp 99.0 F 03/20/17 07:07 Pulse 72 03/20/17 08:08 Resp 20 03/20/17 07:07 BP 113/60 03/20/17 07:07 Pulse Ox 93 L 03/20/17 07:07 Intake & Output 03/19/17 03/20/17 03/20/17 18:59 06:59 18:59 Intake Total 180 280 Output Total 700 425 Balance -520 -145 Intake: IV 20 Sodium Chloride 0.9% 1, 20 000 ml @ 60 mls/hr IV . [id number] [facility] Rx#:[id number] Oral 180 260 Output: Urine 700 425 Other: Voiding Method Indwelling Catheter Indwelling Catheter PHYSICAL EXAMINATION: Cooperative, at present in no acute distress. HEENT: Neck supple. No JVD. Chest: Occasional rhonchi with better air flow Cardiac: Normal S1-S2 no gallops no murmur . Abdomen: Soft bowel sounds present. Extremities: Left thigh ] Neurologically: Awake, alert, oriented with well-coordinated movements upper extremities. - Labs CBC & Chem 7: 03/19/17 09:12 03/19/17 09:12 Labs: Abnormal Lab Results - Last 24 Hours (Table) 03/19/17 03/19/17 Range/Units 09:12 09:12 WBC 2.4 L (3.8-10.6) k/uL RBC 2.34 L (3.80-5.40) m/uL Hgb 7.5 L D (11.4-16.0) gm/dL Hct 22.3 L (34.0-46.0) % Plt Count 145 L (150-450) k/uL Lymphocytes # 0.5 L (1.0-4.8) k/uL Sodium 130 L (137-145) mmol/L Glucose 127 H (74-99) mg/dL Calcium 7.7 L (8.4-10.2) mg/dL Assessment and Plan Assessment: ASSESSMENT: 1. Anemia secondary to acute blood loss 2. Thrombocytopenia improving 3. Chronic leukopenia 4. Hyponatremia 5. Acute urinary retention 6. Tracheobronchitis 7. Irritable bowel syndrome with constipation 8. Age-related macular degeneration 9. Dizziness Plan: Continue present medical regimen discontinue IV fluids. Add updrafts. Patient condition discussed with the patient patient does have macular degeneration, some decreased hearing, scoliosis of the spine. I believe all these along with her age a contributing to worsening unsteadiness. She has no true vertigo, no postural dizziness. She is on no medications except for laxatives and eye vitamins anticoagulant and antibiotics. Tylenol 3 be discontinued. Patient is looking for solution to resolve her unsteadiness. Patient educated regarding this that the best option is some physical therapy and using a walker or a cane to help steady her. Fall precautions reviewed continue Augmentin and continue anticoagulation. We'll discontinued the Erazo catheter. May require IV fluids if intake remains poor. Encouraged at least 3 ensures a day
--- NOTE | 2017-03-20 09:42 | P.PN ---
Subjective Progress Note Date: 03/20/17 Principal diagnosis: Status post ORIF left IT hip fracture Patient is seen today resting in her hospital chair, she appears comfortable. Patient admits to some dizziness when getting out of bed. She is not eating very well at this time. She denies chest pain, shortness of breath. Objective - Vital Signs Vital signs: Vital Signs Temp 99.0 F 03/20/17 07:07 Pulse 72 03/20/17 08:08 Resp 20 03/20/17 07:07 BP 113/60 03/20/17 07:07 Pulse Ox 93 L 03/20/17 07:07 Intake & Output 03/19/17 03/20/17 03/20/17 18:59 06:59 18:59 Intake Total 180 280 Output Total 700 425 Balance -520 -145 Intake: IV 20 Sodium Chloride 0.9% 1, 20 000 ml @ 60 mls/hr IV . [id number] [facility] Rx#:[id number] Oral 180 260 Output: Urine 700 425 Other: Voiding Method Indwelling Catheter Indwelling Catheter - Exam Left lower extremity: Incision is clean, dry and intact. Saman are all in good position. Some soft tissue swelling noted along the lateral aspect of the hip. Plantar flexion , dorsiflexion, EHL, FHL are intact. Dorsal pedis pulses 2+, sensory exam to light touch is intact. - Labs CBC & Chem 7: 03/19/17 09:12 03/19/17 09:12 Labs: Abnormal Lab Results - Last 24 Hours (Table) 03/19/17 03/19/17 Range/Units 09:12 09:12 WBC 2.4 L (3.8-10.6) k/uL RBC 2.34 L (3.80-5.40) m/uL Hgb 7.5 L D (11.4-16.0) gm/dL Hct 22.3 L (34.0-46.0) % Plt Count 145 L (150-450) k/uL Lymphocytes # 0.5 L (1.0-4.8) k/uL Sodium 130 L (137-145) mmol/L Glucose 127 H (74-99) mg/dL Calcium 7.7 L (8.4-10.2) mg/dL Assessment and Plan Plan: Assessment: 1. Postop day #4 status post left ORIF IT femur fracture Plan: 1. Pain control, continue low-dose oral medication 2. Continue work physical therapy 3. GI and DVT prophylaxis 4. Medical recommendations 5. Awaitinc CBC results for otday 6. Daily dressing changes 7. Discharge planning: await discharge to rehab when stable Time with Patient: Less than 30
[2017-03-20 09:59] LABS: HCT 22.5 % (34.0-46.0); HGB 7.4 gm/dL (11.4-16.0); MCH 31.6 pg (25.0-35.0); MCHC 33.1 g/dL (31.0-37.0); MCV 95.7 fL (80.0-100.0); Mean Platelet Volume 8.2; Platelet Count 165 k/uL (150-450); RBC 2.35 m/uL (3.80-5.40); RDW 14.6 % (11.5-15.5); WBC 2.5 k/uL (3.8-10.6)
[2017-03-20 10:06] LABS: Anion Gap 5 mmol/L; Blood Urea Nitrogen 12 mg/dL (7-17); Carbon Dioxide 26 mmol/L (22-30); Chloride 98 mmol/L (98-107); Glucose 106 mg/dL (74-99); Sodium 129 mmol/L (137-145)
[2017-03-20] MEDS: HYDROmorphone 2 MG/ML 1 ML SYRINGE IVP PRN ×2 (19:47→23:34)
[2017-03-21] MEDS: ACETAMINOPHEN TAB 325 MG TAB PO PRN ×2 (04:30→18:07)
[2017-03-21] MEDS: LEVOTHYROXINE 50 MCG TAB PO SCH (05:44)
[2017-03-21] MEDS: HYDROmorphone 2 MG/ML 1 ML SYRINGE IVP PRN ×6 (05:44→22:14)
[2017-03-21] MEDS: ALBUTEROL NEBULIZED 2.5 MG/3 ML INHALATION SCH ×4 (08:16→19:31)
[2017-03-21] MEDS: VIT A,C & E-LUTEIN-MINERALS 1 EACH TAB PO SCH (08:35)
[2017-03-21] MEDS: AMOXIC-POT CLAV 875-125MG 1 EACH TAB PO SCH ×2 (08:35→22:00)
[2017-03-21] MEDS: FAMOTIDINE 20 MG TAB PO SCH (08:35)
[2017-03-21] MEDS: APIXABAN 2.5 MG TABLET PO SCH (08:35)
[2017-03-21] MEDS: SENNOSIDES-DOCUSATE SODIUM 1 EACH TAB PO SCH ×2 (08:47→22:00)
[2017-03-21] MEDS ORDERED: SODIUM FERRIC GLUCONAT-SUCROSE 125 MG in SODIUM CHLORIDE 0.9% 100 ML IVPB ONE (09:00)
--- NOTE | 2017-03-21 09:53 | CT ---
EXAMINATION TYPE: CT brain wo con DATE OF EXAM: 03/21/2017 HISTORY: Dizziness, history of recent hip surgery last Tuesday CT DLP: 1144 mGycm. Automated Exposure Control for Dose Reduction was Utilized. TECHNIQUE: CT scan of the head is performed without contrast. COMPARISON: None. FINDINGS: There is diffuse ventricular and sulcal prominence consistent with diffuse age-related ce rebral atrophy. There is low-attenuation in the periventricular white matter presumed on basis of pr oduct of chronic small vessel ischemic change in patient of this age. There is 6 mm hyperdense focus right frontal region difficult to localize but felt likely within parenchyma versus adjacent sulcus a xial image 34 correlates with coronal image 25 and sagittal image 18. Given patient's history acute h emorrhage needs to BE strongly considered especially without prior comparison. Scleral calcification both globes is present. No midline shift is seen. Visualized sinuses are clear. Visualized mastoid ai r cells show no suspicious opacification. IMPRESSION: Suspect small 6 mm focus of acute intraparenchymal hemorrhage right frontal lobe. There i s background of mild to moderate diffuse age-related cerebral atrophy and moderate chronic small vess el ischemic change noted. Critical results communicated to patient's third floor nurse via telephone at time of dictation. A Document Only message has been documented for Jn Morris MD in the [facility] system on 03/21/2017 9:51 AM, Message ID [id number].
--- NOTE | 2017-03-21 15:17 | P.PN ---
Subjective Progress Note Date: 03/21/17 Principal diagnosis: Status post ORIF left IT hip fracture Patient is seen today resting in her hospital bed, she appears comfortable. patient continues to have some dizziness. Internal medicine did order a computed tomography scan which showed a question of small bleed. she is also having a difficult time urinating. She denies chest pain, shortness of breath. Objective - Vital Signs Vital signs: Vital Signs Temp 98.3 F 03/21/17 14:54 Pulse 100 03/21/17 14:54 Resp 16 03/21/17 14:54 BP 111/62 03/21/17 14:54 Pulse Ox 95 03/21/17 14:54 Intake & Output 03/20/17 03/21/17 03/21/17 18:59 06:59 18:59 Intake Total 200 350 140 Output Total 300 3050 Balance -100 -2700 140 Intake: Oral 200 350 140 Output: Urine 300 800 Straight 300 Post Void Residual 1950 Stool 300 Other: Voiding Method Indwelling Catheter Self-Catheterization - Exam Left lower extremity: Incision is clean, dry and intact. Logan are all in good position. Some soft tissue swelling noted along the lateral aspect of the hip. Plantar flexion , dorsiflexion, EHL, FHL are intact. Dorsal pedis pulses 2+, sensory exam to light touch is intact. - Labs CBC & Chem 7: 03/20/17 09:30 03/20/17 09:35 Assessment and Plan Plan: Assessment: 1. Postop day #5 status post left ORIF IT femur fracture Plan: 1. Pain control, continue low-dose oral medication 2. Continue work physical therapy 3. GI and DVT prophylaxis 4. Medical recommendations 5. Rechecking CBC and BMP 6. Daily dressing changes 7. Discharge planning: await discharge to rehab when stable Time with Patient: Less than 30
[2017-03-21 16:30] LABS: ALT 98 U/L (9-52); AST 169 U/L (14-36); Albumin 2.2 g/dL (3.5-5.0); Alkaline Phosphatase 45 U/L (38-126); Anion Gap 3 mmol/L; Blood Urea Nitrogen 11 mg/dL (7-17); Calcium 7.5 mg/dL (8.4-10.2); Carbon Dioxide 29 mmol/L (22-30); Chloride 96 mmol/L (98-107); Glucose 94 mg/dL (74-99); Potassium 4.3 mmol/L (3.5-5.1); Sodium 128 mmol/L (137-145); Total Bilirubin 0.4 mg/dL (0.2-1.3); Total Protein 4.2 g/dL (6.3-8.2)
[2017-03-21 16:32] LABS: Basophils % (A) 0 %; Eosinophils % (A) 0 %; HCT 22.2 % (34.0-46.0); HGB 7.1 gm/dL (11.4-16.0); Lymphocytes # (A) 0.9 k/uL (1.0-4.8); Lymphocytes % (A) 32 %; MCH 31.1 pg (25.0-35.0); MCHC 31.9 g/dL (31.0-37.0); MCV 97.6 fL (80.0-100.0); Mean Platelet Volume 8.2; Monocytes # (A) 0.2 k/uL (0-1.0); Monocytes % (A) 6 %; Neutrophils # (A) 1.7 k/uL (1.3-7.7); Neutrophils % (A) 59 %; Platelet Count 211 k/uL (150-450); RBC 2.28 m/uL (3.80-5.40); RDW 15.2 % (11.5-15.5); WBC 2.9 k/uL (3.8-10.6)
--- NOTE | 2017-03-21 19:01 | PN ---
PROGRESS NOTE CHIEF COMPLAINT: Re-evaluation. HISTORY OF PRESENT ILLNESS: This 86-year-old female was admitted to the hospital and underwent left hip ORIF. The patient has been doing well. She has been complaining of some dizziness for the past about 2-3 days described as a dizziness, giddiness sensation, non-postural and non- vertiginous. The patient was anemic with a hemoglobin at 6. She was transfused and her hemoglobin is stable at at 7.4 now. Blood pressure is stable. In view of this, CT scan of the brain was ordered, although she has no focal neurological signs. She does have age-related macular degeneration. The patient otherwise denied any other symptoms. Appetite is poor. No nausea or vomiting. Not eating well. The patient has urinary retention, for which the Erazo catheter was taken out and she has voided today again. Later I was informed that the patient was not able to void and she had 900 mL of urine in the bladder. The Erazo catheter has been reinserted. The patient's CT scan of the brain does show a small hemorrhagic area in the right frontal lobe, which could contribute to her dizziness sensations. REVIEW OF SYSTEMS: NEURO: Denies any headaches. PSYCH: Pleasant, cooperative, oriented. CARDIAC: Denies chest pain, angina, palpitation. Cough is much improved. RESPIRATORY: Denies shortness of breath. Has cough. GI: No nausea, vomiting, abdominal pain, diarrhea. : No symptoms of dysuria, hematuria. Erazo catheter placed this afternoon. EXTREMITIES: Denies pain except for the left hip. CONSTITUTIONAL: No fever, chills. PHYSICAL EXAMINATION: Pleasant female in no distress. Vital signs reveal temperature 97.8, pulse 66, respiration 16. Blood pressure was 83/41, pulse ox 96% on room air. HEENT: Normocephalic. NECK: Supple. No JVD. CHEST: Clear to auscultation with markedly improved air flow. Rhonchi are only rare occasional rhonchi now. EXTREMITIES: The patient's extremities reveal edema in the left thigh and left leg. Neurological awake, alert, oriented. Moves both upper extremities in well-coordinated fashion. LABORATORY ASSESSMENT: CT scan of the brain as mentioned above; right frontal lobe with suspected 6 mm size intraparenchymal hemorrhage. CBC with hemoglobin 7.1, white count 2.9, platelet count of 211. Sodium 128. Normal hepatic function. AST is 169, ALT is 98, albumin 2.2. ASSESSMENT: 1. Dizziness with associated small intraparenchymal frontal lobe hemorrhage. 2. Mild hyponatremia. 3. Anemia secondary to acute blood loss. 4. Tracheobronchitis, resolving. 5. Mildly elevated liver function; unclear etiology. PLAN: Continue present medical regimen. I have reviewed with the patient's daughter all the patient's conditions and status, including findings of the CT scan after the results were available. The Colace was discontinued, the Eliquis continued and monitored closely. She may need to be placed on aspirin in 5 to7 days. Prognosis remains guarded. For her urinary retention, a Erazo catheter is to be placed. MMFAVIAN / IJN: [id number] /
[2017-03-21] MEDS: ONDANSETRON 4 MG/2 ML VIAL IVP PRN (22:03)
[2017-03-22] MEDS: HYDROmorphone 2 MG/ML 1 ML SYRINGE IVP PRN ×4 (01:34→23:16)
[2017-03-22] MEDS: LEVOTHYROXINE 50 MCG TAB PO SCH (05:39)
[2017-03-22] MEDS: ALBUTEROL NEBULIZED 2.5 MG/3 ML INHALATION SCH ×4 (07:45→20:27)
[2017-03-22 07:57] LABS: ALT 89 U/L (9-52); AST 130 U/L (14-36); Albumin 2.2 g/dL (3.5-5.0); Alkaline Phosphatase 46 U/L (38-126); Anion Gap 4 mmol/L; Blood Urea Nitrogen 11 mg/dL (7-17); Calcium 7.7 mg/dL (8.4-10.2); Carbon Dioxide 28 mmol/L (22-30); Chloride 98 mmol/L (98-107); Glucose 87 mg/dL (74-99); Sodium 130 mmol/L (137-145); Total Bilirubin 0.5 mg/dL (0.2-1.3); Total Protein 4.2 g/dL (6.3-8.2)
[2017-03-22 08:13] LABS: Potassium 4.2 mmol/L (3.5-5.1)
[2017-03-22] MEDS: FAMOTIDINE 20 MG TAB PO SCH (08:45)
[2017-03-22] MEDS: VIT A,C & E-LUTEIN-MINERALS 1 EACH TAB PO SCH (08:45)
[2017-03-22] MEDS: AMOXIC-POT CLAV 875-125MG 1 EACH TAB PO SCH ×2 (08:45→20:04)
[2017-03-22] MEDS: SENNOSIDES-DOCUSATE SODIUM 1 EACH TAB PO SCH ×2 (08:50→20:04)
[2017-03-22] MEDS: ACETAMINOPHEN TAB 325 MG TAB PO PRN ×2 (08:50→13:55)
[2017-03-22 10:51] LABS: T4, Free (Free Thyroxine) 1.48 ng/dL (0.78-2.19)
--- NOTE | 2017-03-22 12:23 | P.DS ---
Providers Date of admission: 03/16/17 05:55 Expected date of discharge: 03/24/17 Attending physician: Wellington Plascencia Consults: 03/16/17 09:26 Consult Physician Urgent Consulting Provider: Jn Morris Reason/Comments: Medical Mangement Do you want consulting provider notified?: Already Contacted Primary care physician: Jn Morris [facility] Course: Date of admission: 03/15/2017 Date of discharge: 03/24/2017 Admission diagnosis: Minimally displaced left intertrochanteric hip fracture Discharge diagnosis: Status post open reduction internal fixation left intertrochanteric hip fracture Attending physician: Dr. Plascencia Surgical procedures: ORIF left intertrochanteric hip fracture Brief history: Patient is a 86-year-old female who presented to [facility] on 03/15/2017 after sustaining a fall at home. Imaging studies demonstrated a minimally displaced left intertrochanteric hip fracture. emergency room staff to contact Dr. Plascencia regarding this patient, and they were admitted under our care. Patient underwent surgery on 03/16/2017, any open reduction internal fixation procedure. Hospital course: Details of patient's surgery can be found in operative report. Patient tolerated the procedure well and was subsequently transported to orthopedic floor. Patient's orthopeidc and medical care was provided daily. Patient had daily laboratory tests performed for evaluation of overall blood counts. Patient had daily physical therapy to include strengthening range of motion as well as education with walker ambulation. Patient was treated with {} for their postoperative DVT prophylaxis during their inpatient stay. Patient was noted to have a relatively uneventful postoperative course. Patient reported satisfactory pain control with oral pain medications by postoperative day 0. Patient showed satisfactory progress with physical therapy. Patient moved steadily through the program and had no difficulty meeting the goals by postoperative day 8. Given patient's otherwise satisfactory course and having met physical therapy goals, plan is to discharge patient rehab on postoperative day 8. Discharge condition/disposition: Patient will be discharged rehab in stable condition. Discharge medications: Instructions are given on resumption of patient's normal daily medications per primary care recommendation, in addition patient will be prescribed [place] 5 mg/325 mg, Valium 5mg, Tylenol 650 mg, Lopressor 25 mg, Protonix 40 mg, milk of magnesia, Senokot. Discharge instructions: 1. Wound care and infection precautions, [keep incision dry and covered while showering], no lotions, creams, moisturizers. No soaking, tubs, pools, hottubs. Do not scrub over the incision. 2. Weight-bear as tolerated with walker / cane until follow-up. 3. Ice and elevate when necessary. Do not exceed 20 minutes per hour with ice pack. 4. Utilize compression sleeve until seen at first follow up appointment. 5. Visiting nursing care. 6. Home physical therapy 7. Pain meds and anticoagulants per prescription. 8. Pain medication has potential to cause constipation. Increase oral fluid and fiber intake. Contact primary care provider if you have not had a bowel movement within 48 hours after discharge 9. No anti-inflammatory medication until discussed at first post operative visit, this including Motrin, Aleve, Mobic, Diclofenac. 10. Follow up in office at 2 weeks postop with David Hu PA-C 11. Follow up with your primary care doctor 7-10 days after discharge. 12. Contact [facility] with any questions, . Procedures: Open reduction internal fixation intertrochanteric hip fracture Patient Condition at Discharge: Stable Plan - Discharge Summary Discharge Rx Participant: Yes New Discharge Prescriptions: New Acetaminophen Tab [Tylenol] 650 mg PO Q6HR PRN tab PRN Reason: Fever And/ Or Pain Diazepam [Valium] 5 mg PO Q8HR PRN #60 tab PRN Reason: Spasms HYDROcodone/APAP 5-325MG [[place] 5-325] 1 each PO Q4H PRN #90 tab PRN Reason: Pain Scale 1 To 5 Magnesium Hydroxide [Milk of Magnesia Concentrate] 2,400 mg PO DAILY PRN ml PRN Reason: Constipation Metoprolol Tartrate [Lopressor] 25 mg PO BID tab Pantoprazole [Protonix] 40 mg PO DAILY tablet.dr Cardosonosidevaishali-Docusate Sodium [Senokot-S] 2 each PO BID tab Continue [place]-3 Fatty Acids/Fish Oil [Fish Oil 1,000 mg Softgel] 1 cap PO DAILY Magnesium Oxide [Mag-Ox] 400 mg PO DAILY Vit C/E/Zn/Coppr/Lutein/Zeaxan [Preservision Areds 2 Softgel] 1 cap PO DAILY Levothyroxine Sodium [Synthroid] 50 mcg PO DAILY Calcium Carbonate [Calcium] 600 mg PO DAILY Artificial Tears-Hypromellose [Artificial Tear Drops] 1 drop BOTH EYES QID PRN PRN Reason: Dry Eye(S) Polyethylene Glycol 3350 [Miralax] 17 gm PO BID Discontinued Amoxic-Pot Clav 875-125Mg [Augmentin 875-125] 1 tab PO BID Linaclotide [Linzess] 145 mcg PO DAILY Discharge Medication List Artificial Tears-Hypromellose [Artificial Tear Drops] 1 drop BOTH EYES QID PRN 11/20/16 [History] Calcium Carbonate [Calcium] 600 mg PO DAILY 11/20/16 [History] Levothyroxine Sodium [Synthroid] 50 mcg PO DAILY 11/20/16 [History] Magnesium Oxide [Mag-Ox] 400 mg PO DAILY 11/20/16 [History] [place]-3 Fatty Acids/Fish Oil [Fish Oil 1,000 mg Softgel] 1 cap PO DAILY [History] Vit C/E/Zn/Coppr/Lutein/Zeaxan [Preservision Areds 2 Softgel] 1 cap PO DAILY [History] Polyethylene Glycol 3350 [Miralax] 17 gm PO BID 03/16/17 [History] Acetaminophen Tab [Tylenol] 650 mg PO Q6HR PRN tab 03/24/17 [Rx] Diazepam [Valium] 5 mg PO Q8HR PRN #60 tab 03/24/17 [Rx] HYDROcodone/APAP 5-325MG [[place] 5-325] 1 each PO Q4H PRN #90 tab 03/24/17 [Rx] Magnesium Hydroxide [Milk of Magnesia Concentrate] 2,400 mg PO DAILY PRN ml 03/10 [Rx] Metoprolol Tartrate [Lopressor] 25 mg PO BID tab 03/24/17 [Rx] Pantoprazole [Protonix] 40 mg PO DAILY tablet. 03/24/17 [Rx] Sennosides-Docusate Sodium [Senokot-S] 2 each PO BID tab 03/24/17 [Rx] Follow up Appointment(s)/Referral(s): Jn Morris MD [Primary Care Provider] - 1 Week (ECF) Hunter Hu PAC [PHYSICIAN MAT LINKER] - 04/06/17 3:30 pm Activity/Diet/Wound Care/Special Instructions: Orthopedic Discharge Instructions: 1. Wound care and infection precautions, keep incision dry and covered while showering, no lotions, creams, moisturizers. No soaking, pools, hot tubs. Do not scrub over incision. 2. Weight-bear as tolerated with walker / cane until follow-up. 3. Ice and elevate when necessary. Do not exceed 20 minutes per hour with ice pack. 4. Utilize compression sleeve until seen at first follow up appointment. 5. Visiting nursing care. 6. Home physical therapy. 7. Pain meds and anticoagulants per prescription. 8. Pain medication has potential to cause constipation. Increase oral fluid and fiber intake. Contact primary care provider if you have not had a bowel movement within 48 hours after discharge. 9. No anti-inflammatory medication until discussed at first post operative visit, this including Motrin, Aleve, Mobic, Diclofenac. 10. Follow up in office at 2 weeks postop with David Hu PA-C 11. Follow up with your primary care doctor 7-10 days after discharge. 12. Contact [facility] with any questions, . Start Aspirin 81mg once daily on Tuesday, Mar [address] Discharge Disposition: TRANSFER TO SNF/ECF
[2017-03-22 12:56] LABS: Basophils % (A) 0 %; Eosinophils % (A) 0 %; HCT 24.4 % (34.0-46.0); HGB 7.7 gm/dL (11.4-16.0); Lymphocytes # (A) 0.9 k/uL (1.0-4.8); Lymphocytes % (A) 23 %; MCH 31.1 pg (25.0-35.0); MCHC 31.5 g/dL (31.0-37.0); MCV 98.8 fL (80.0-100.0); Macrocytosis Slight; Mean Platelet Volume 8.2; Monocytes # (A) 0.3 k/uL (0-1.0); Monocytes % (A) 6 %; Neutrophils # (A) 2.8 k/uL (1.3-7.7); Neutrophils % (A) 68 %; Platelet Count 289 k/uL (150-450); RBC 2.47 m/uL (3.80-5.40); RDW 15.3 % (11.5-15.5); WBC 4.1 k/uL (3.8-10.6)
--- NOTE | 2017-03-22 15:31 | P.PN ---
Subjective Progress Note Date: 03/22/17 Principal diagnosis: Status post ORIF left IT hip fracture Patient is seen today resting in her hospital bed, she appears comfortable. She denies chest pain, shortness of breath. Objective - Vital Signs Vital signs: Vital Signs Temp 98.6 F 03/22/17 07:30 Pulse 73 03/22/17 14:36 Resp 16 03/22/17 07:30 BP 91/51 03/22/17 14:36 Pulse Ox 95 03/22/17 07:30 Intake & Output 03/21/17 03/22/17 03/22/17 18:59 06:59 18:59 Intake Total 240 300 250 Output Total 1100 1175 Balance -860 -875 250 Intake: Intake, IV Titration 100 Amount Sodium Ferric Gluconat- 100 Sucrose 125 mg In Sodium Chloride 0.9% 100 ml @ 100 mls/hr IVPB ONCE ONE Rx#:[id number] Oral 140 300 250 Output: Urine 1100 1175 Straight 1100 350 Other: Voiding Method Self-Catheterization Indwelling Catheter Indwelling Catheter - Exam Left lower extremity: Incision is clean, dry and intact. Saman are all in good position. Some soft tissue swelling noted along the lateral aspect of the hip. Plantar flexion , dorsiflexion, EHL, FHL are intact. Dorsal pedis pulses 2+, sensory exam to light touch is intact. - Labs CBC & Chem 7: 03/22/17 12:08 03/22/17 07:02 Labs: Abnormal Lab Results - Last 24 Hours (Table) 03/21/17 03/21/17 03/22/17 Range/Units 15:50 15:50 07:02 WBC 2.9 L (3.8-10.6) k/uL RBC 2.28 L (3.80-5.40) m/uL Hgb 7.1 L (11.4-16.0) gm/dL Hct 22.2 L (34.0-46.0) % Lymphocytes # 0.9 L (1.0-4.8) k/uL Sodium 128 L 130 L (137-145) mmol/L Chloride 96 L (98-107) mmol/L Calcium 7.5 L 7.7 L (8.4-10.2) mg/dL AST 169 H 130 H (14-36) U/L ALT 98 H 89 H (9-52) U/L Total Protein 4.2 L 4.2 L (6.3-8.2) g/dL Albumin 2.2 L 2.2 L (3.5-5.0) g/dL TSH 6.370 H (0.465-4.680) mIU/L 03/22/17 Range/Units 12:08 WBC (3.8-10.6) k/uL RBC 2.47 L (3.80-5.40) m/uL Hgb 7.7 L (11.4-16.0) gm/dL Hct 24.4 L (34.0-46.0) % Lymphocytes # 0.9 L (1.0-4.8) k/uL Sodium (137-145) mmol/L Chloride (98-107) mmol/L Calcium (8.4-10.2) mg/dL AST (14-36) U/L ALT (9-52) U/L Total Protein (6.3-8.2) g/dL Albumin (3.5-5.0) g/dL TSH (0.465-4.680) mIU/L Assessment and Plan Plan: Assessment: 1. Postop day #6 status post left ORIF IT femur fracture Plan: 1. Pain control, continue low-dose oral medication 2. Continue work physical therapy 3. GI and DVT prophylaxis 4. Medical recommendations 5. Daily dressing changes 6. Discharge planning: await discharge to rehab when stable Time with Patient: Less than 30
[2017-03-22] MEDS: ONDANSETRON 4 MG/2 ML VIAL IVP PRN (18:34)
--- NOTE | 2017-03-22 21:44 | PN ---
PROGRESS NOTE ATTENDING PHYSICIAN: Dr. Plascencia. CONSULTING PHYSICIAN: Dr. Oscar Morris. CHIEF COMPLAINT: Re-evaluation. HISTORY OF PRESENT ILLNESS: An 86-year-old female was admitted to the hospital following a fall and at the left hip ORIF. The patient was confused, complaining of dizziness. A CT scan of the brain reveals a small 6 mm size hemorrhagic spot. The patient has no other associated neurological symptoms from that. Actually, patient feels better today. REVIEW OF SYSTEMS: NEURO: Denies any headaches. Some dizziness, but improved. CARDIAC: Denies chest pain, angina, palpitation. RESPIRATORY: Denies shortness of breath, cough, hemoptysis. GI: Decreased appetite. No diarrhea. Did have a small bowel movement yesterday. : No symptoms of dysuria, hematuria. Has urinary retention requiring Erazo catheter. EXTREMITIES: Pain in the left hip area. CONSTITUTIONAL: No fever chills. PHYSICAL EXAMINATION: Pleasant female in no distress. The patient appears more alert today. Vital signs revealed temperature 98.6, pulse 116, blood pressure 115/71, pulse ox of 95%. HEENT: Normocephalic. NECK: No JVD. CHEST: Clear to auscultation. CARDIAC: Normal S1, S2 with no gallop. Systolic murmur 2/6 left sternal border. ABDOMEN: Soft. Bowel sounds present. Extremities reveal edema, left lower back. NEUROLOGICAL: Awake, alert, oriented with well-coordinated movements. LABORATORY ASSESSMENT: Magnesium which was normal. CBC reveals a hemoglobin of 7.7, white count 4.1, platelets of 289. Sodium 130, BUN and creatinine are normal. AST 130, ALT 89. TSH 6.370. Serum cortisol was normal at 11. ASSESSMENT: 1. Anemia secondary to acute blood loss. 2. Status post left hip open reduction and internal fixation. 3. Small parenchymal frontal lobe hemorrhage, etiology unclear. 4. Mildly elevated liver enzymes. 5. Hyponatremia. PLAN: Patient is stable. Continue present medical regimen. Patient's condition discussed with the patient and daughter. The patient is mildly tachycardic at times, suspect secondary to anemia. Continue present regimen. The patient will receive another dose of Venofer in the morning. Prognosis remains guarded. MMODL / IJN: [id number] /
[2017-03-23] MEDS: LEVOTHYROXINE 50 MCG TAB PO SCH (05:14)
[2017-03-23] MEDS: ACETAMINOPHEN TAB 325 MG TAB PO PRN ×2 (07:11→12:25)
[2017-03-23] MEDS: AMOXIC-POT CLAV 875-125MG 1 EACH TAB PO SCH (08:39)
[2017-03-23] MEDS: SENNOSIDES-DOCUSATE SODIUM 1 EACH TAB PO SCH ×2 (08:39→20:47)
[2017-03-23] MEDS: FAMOTIDINE 20 MG TAB PO SCH (08:39)
[2017-03-23] MEDS: VIT A,C & E-LUTEIN-MINERALS 1 EACH TAB PO SCH (08:39)
[2017-03-23] MEDS ORDERED: SODIUM FERRIC GLUCONAT-SUCROSE 125 MG in SODIUM CHLORIDE 0.9% 100 ML IVPB ONE (09:00)
[2017-03-23] MEDS: ONDANSETRON 4 MG/2 ML VIAL IVP PRN (09:11)
[2017-03-23] MEDS: ALBUTEROL NEBULIZED 2.5 MG/3 ML INHALATION SCH ×3 (09:16→16:44)
[2017-03-23 09:37] VITALS: BMI 24.3
[2017-03-23] MEDS ORDERED: PANTOPRAZOLE 40 MG/10 ML VIAL IVP SCH (11:45)
[2017-03-23] MEDS: NYSTATIN 100,000 UNIT/ML SUSP 500,000 UNIT/5 ML CUP PO SCH ×3 (12:27→20:43)
[2017-03-23] MEDS ORDERED: MAGNESIUM HYDROXIDE 2,400 MG/10 ML CUP PO PRN (13:03)
[2017-03-23] MEDS: traMADol 50 MG TAB PO SCH ×3 (14:11→23:10)
[2017-03-23] MEDS ORDERED: HYDROcodone/APAP 5-325MG 1 EACH TAB PO PRN (16:07)
[2017-03-23] MEDS: DIAZEPAM 5 MG TAB PO PRN (16:13)
--- NOTE | 2017-03-23 18:59 | P.PN ---
Subjective Progress Note Date: 03/23/17 Principal diagnosis: fracture left hip History present illness: 86-year-old female was admitted to the hospital with a left hip fracture. The patient was complaining of dizziness a CAT scan of the head showed small frontal hemorrhage. No focal neurological symptoms. The patient today tells me her vision has worsened since she is not getting the right breast and off for her eye vitamins. Recommended that she bring them from home. The patient also has had urinary retention for which she has a Erazo catheter. We plan to keep the 20th Erazo catheter in the 24 hours. The patient had an episode of choking on a tablet. Denies any other symptoms. She is in respiratory infection In the hospital with symptoms to be better her lungs sound better. She does appear somewhat depressed. Long talk about it and that what is expected of her with all the possible help for rehab. Patient encouraged to have appropriate nutrition. Patient does have anemia postsurgery hemoglobin yesterday was 7.7 did not see indication to transfuse at yet. She is status tachycardic mildly. The blood pressures are in the 90s range. Adequate discussion with the patient's daughter as well at the bedside REVIEW OF SYSTEMS: Neuro: Denies any headache some dizziness feels her vision is worse Psych: Some depression symptoms Cardiac: Denies chest pain and angina palpitations. Respiratory: Denies shortness of breath does have some cough. GI: Denied any nausea vomiting abdominal pain or diarrhea at the time of my evaluation. Apparently the patient did have an episode of vomiting later : Has a Erazo catheter with no dysuria hematuria Extremities: Pain of the left Skin: No breakdown. Constitutional: No fever, chills. Objective - Vital Signs Vital signs: Vital Signs Temp 97.4 F L 03/23/17 16:17 Pulse 117 H 03/23/17 16:53 Resp 16 03/23/17 16:17 BP 148/75 03/23/17 16:17 Pulse Ox 94 L 03/23/17 16:44 Intake & Output 03/22/17 03/23/17 03/23/17 18:59 06:59 18:59 Intake Total 250 100 625 Output Total 1300 1 Balance 250 -1200 624 Weight 64.41 kg Intake: Intake, IV Titration 125 Amount Sodium Ferric Gluconat- 125 Sucrose 125 mg In Sodium Chloride 0.9% 100 ml @ 100 mls/hr IVPB ONCE ONE Rx#:[id number] Oral 250 100 500 Output: Urine 1300 Uretheral (Erazo) 500 Stool 1 Other: Voiding Method Indwelling Catheter Indwelling Catheter Indwelling Catheter # Bowel Movements 1 1 PHYSICAL EXAMINATION: Cooperative, at present in no acute distress. HEENT: Neck supple. No JVD. Chest: Clear to auscultation percussion. Cardiac: Tachycardic normal S1-S2 no gallops systolic murmur left sternal border. Abdomen: Soft bowel sounds present. Extremities: Trace edema left leg tenderness left hip area Neurologically: Awake alert oriented with well according movements both upper extremities - Labs CBC & Chem 7: 03/22/17 12:08 03/22/17 07:02 Assessment and Plan Assessment: ASSESSMENT: 1. Anemia secondary to acute blood loss 2. Small right frontal parenchymal hemorrhage 3. Depression 4. Hyponatremia 5. Acute urinary retention 6. Tracheobronchitis 7. Irritable bowel syndrome with constipation 8. Age-related macular degeneration 9. Dizziness Plan: Continue present medical regimen .She is on no medications except for laxatives and eye vitamins . Encouraged at least 3 ensures a day and infusion today
[2017-03-23] MEDS: HYDROcodone/APAP 5-325MG 1 EACH TAB PO PRN (20:39)
[2017-03-23] MEDS: METOPROLOL TARTRATE 25 MG TAB PO SCH (20:40)
[2017-03-24] MEDS: LEVOTHYROXINE 50 MCG TAB PO SCH (04:46)
[2017-03-24] MEDS: ACETAMINOPHEN TAB 325 MG TAB PO PRN (06:21)
[2017-03-24] MEDS: DIAZEPAM 5 MG TAB PO PRN ×2 (06:22→15:10)
[2017-03-24 08:35] VITALS: BP 120/60; PULSE 70; RESP 14; TEMP 98.2
[2017-03-24] MEDS ORDERED: PANTOPRAZOLE 40 MG TABLET PO SCH (09:00)
[2017-03-24] MEDS: HYDROcodone/APAP 5-325MG 1 EACH TAB PO PRN (09:42)
[2017-03-24] MEDS: traMADol 50 MG TAB PO SCH (09:43)
[2017-03-24] MEDS: METOPROLOL TARTRATE 25 MG TAB PO SCH (09:50)
[2017-03-24] MEDS: NYSTATIN 100,000 UNIT/ML SUSP 500,000 UNIT/5 ML CUP PO SCH (09:50)
[2017-03-24] MEDS: VIT A,C & E-LUTEIN-MINERALS 1 EACH TAB PO SCH (09:50)
[2017-03-24] MEDS: SENNOSIDES-DOCUSATE SODIUM 1 EACH TAB PO SCH (09:51)
[2017-03-24] MEDS ORDERED: HYDROmorphone 2 MG TAB PO PRN (13:33)
--- NOTE | 2017-03-24 19:56 | PN ---
PROGRESS NOTE CHIEF COMPLAINT: Re-evaluation. HISTORY OF PRESENT ILLNESS: This is an 86-year-old female who was admitted to the hospital. She has undergone left hip ORIF. The patient had complained of some dizziness. The patient had a small 6 mm size hemorrhage in the right frontal lobe area. There are no focal neurological signs. The patient yesterday did have an episode of nausea and vomiting and thus discharge was held. She has had a Erazo catheter in for the past few days because of recurrent urinary retention. The Erazo catheter is going to be removed today to see how she does. The patient otherwise is feeling better. She did sleep through the night. She was having leg cramps, for which she has received Valium. She is also on pain medication. The patient does have chronic constipation. The patient was placed on Protonix because of some nausea and vomiting yesterday. She is feeling better today. Potential transfer to nursing facility. Her heart rate has improved with the metoprolol. REVIEW OF SYSTEMS: NEURO: Denies any headaches, dizziness. PSYCH: No anxiety. Oral cavity is dry. Do not see evidence of thrush. Neck reveals no JVD, carotid bruits or thyromegaly. Chest is clear to auscultation. CARDIAC: Normal S1, S2 with no gallops. Systolic murmur 2/6, left sternal border. ABDOMEN: Soft. Bowel sounds are active. Extremities revealed edema in left lower leg. NEUROLOGIC: Awake, alert, oriented. Well-coordinated movements. LABORATORY ASSESSMENT: None new. PHYSICAL EXAMINATION: VITAL SIGNS: Temperature 98.2, pulse 70, respirations 14, blood pressure 120/60. HEENT: Normocephalic. NECK: Supple. No JVD. CHEST: Clear to auscultation. CARDIAC: Normal S1, S2 with no gallops. ABDOMEN: Soft. EXTREMITIES: Edema, left lower leg. Neurologically awake, alert. Moves both upper extremities well. ASSESSMENT: 1. Anemia secondary to acute blood loss. 2. Small frontal lobe intraparenchymal hemorrhage; etiology unclear. 3. Hyponatremia. 4. Anemia secondary to acute blood loss. 5. Status post left hip open reduction internal fixation. 6. Tracheobronchitis, improved. 7. Acute urinary retention. 8. Chronic constipation. PLAN: The patient is stable. Continue present medical regimen. The patient can be transferred to a nursing facility today. Will start the patient on an aspirin starting on March 26. Meanwhile, ambulation with therapy. The patient needs significant encouragement, which the family is doing well. SHEYLAL / SUKHJINDERN: [id number] /
== END 2017-03-24 15:30 | DRG 480 ==
LOC: EC 03:20 → 3SUR 05:55
PROVIDERS: ADMIT Orthopaedic Surgery; ATTEND Orthopaedic Surgery
PROC: 0QS704Z Reposition Left Upper Femur with Internal Fixation Device, Open Approach (ICD-10-PCS; principal; 2017-03-16 08:35)
PROC: 30233N1 Transfusion of Nonautologous Red Blood Cells into Peripheral Vein, Percutaneous Approach (ICD-10-PCS; 2017-03-18)
DX: S72.142A Displaced intertrochanteric fracture of left femur, initial encounter for closed fracture (principal); I61.1 Nontraumatic intracerebral hemorrhage in hemisphere, cortical; D69.6 Thrombocytopenia, unspecified; D62 Acute posthemorrhagic anemia; D72.819 Decreased white blood cell count, unspecified; S51.012A Laceration without foreign body of left elbow, initial encounter; E87.1 Hypo-osmolality and hyponatremia; W01.0XXA Fall on same level from slipping, tripping and stumbling without subsequent striking against object, initial encounter; Y92.009 Unspecified place in unspecified non-institutional (private) residence as the place of occurrence of the external cause; E03.9 Hypothyroidism, unspecified; F32.9 Major depressive disorder, single episode, unspecified; H35.30 Unspecified macular degeneration; H54.7 Unspecified visual loss; J40 Bronchitis, not specified as acute or chronic; K58.1 Irritable bowel syndrome with constipation; Z79.01 Long term (current) use of anticoagulants; R33.9 Retention of urine, unspecified; R25.2 Cramp and spasm; Z79.890 Hormone replacement therapy; Z79.899 Other long term (current) drug therapy
CPT/HCPCS: 70450; 71045; 73502; 80048; 80053; 82533; 83735; 84439; 84443; 85025; 85027; 85610; 86850; 86900; 86901; 86920; 93005; 94640; 94760; 96374; 99284

== ENCOUNTER → 2017-07-07 | Outpatient (CLI) | payer MEDICARE ==
--- NOTE | 2017-07-07 11:21 | BD ---
EXAMINATION TYPE: Axial Bone Density DATE OF EXAM: 07/07/2017 COMPARISON: Prior DEXA bone scan October 31, 2012. CLINICAL HISTORY: Disorders of bone density and structure per order. Height: 61.5inches Weight: 114 FRAX RISK QUESTIONS: Alcohol (3 or more units per day): no Family History (Parent hip fracture): no Glucocorticoids (More than 3mos): no (Ex: prednisone, prednisolone, methylprednisolone, dexamethasone, and hydrocortisone). History of Fracture in Adulthood: yes Secondary Osteoporosis: 1. Type 1 Diabetes: no 2. Hyperthyroidism: no 3. Menopause before 45: no 4. Malnutrition: no 5. Chronic liver disease: no Rheumatoid Arthritis: no Current Tobacco Use: no RISK FACTORS HISTORY OF: Hip Fracture (Left): yes When: 2017 Spine Fracture: no History of Wrist Fracture: yes, right When: 2010 Surgery to Hip: yes When: Feb 2017 Family History of Osteoporosis: yes, sister Active: yes Diet low in dairy products/other sources of calcium: no, at least one serving a day Postmenopausal woman: yes Take estrogen and/or progesterone medications: no Lost more than 2 inches in height since high school: yes Frequent falls: no Poor Health: no Hyperparathyroidism: no Adrenal Insufficiency: no MEDICATIONS: Prednisone or other steroids: no Thyroid Medications: yes Which medication: Levothyroxine How Long: maybe about 40 years Osteoporosis Medications: not now Which medication: Fosamax How Long: many years Additional Medications: vitamins Additional History: Laminectomy/fusion lumbar region-unsure what level EXAM MEASUREMENTS: Bone mineral densitometry was performed using the [employer] System. Bone mineral density as measured about the Lumbar spine is: ----- L1-L4(G/cm2): 1.346 T Score Values are as follows: ----- L2: 0.7 ----- L3: 1.5 ----- L4: 1.9 ----- L1-L4: 1.4 Bone mineral density has: Increased 35.2% since study of: 03/30/2000 Bone mineral density about the R hip (g/cm2): 0.736 T Score values are as follows: -----R Neck: -2.2 -----R Total: -3.4 Bone mineral density has: Increased 4.9% since study of: 10/31/2012 IMPRESSION: Osteoporosis (T Score less than -2.5) persists overall in the right hip. Bone density felt falsely el evated in the low back due to reactive sclerosis from underlying scoliosis. There remains increased fracture risk and therapy is usually indicated based on age. Re-Screen 1-2 years. NOTE: T-SCORE=SD OF THE YOUNG ADULT MEAN.
== END | disposition home or self-care (01) ==
LOC: RADBDWWP 09:19
PROVIDERS: ATTEND Internal Medicine
DX: M81.0 Age-related osteoporosis without current pathological fracture (principal); M41.9 Scoliosis, unspecified
CPT/HCPCS: 77080

== ENCOUNTER → 2017-09-30 | Outpatient (CLI) | payer MEDICARE ==
[2017-09-30 11:54] LABS: C Reactive Protein <5.0 mg/L (<10.0); Uric Acid 3.5 mg/dL (3.7-7.4)
[2017-09-30 18:20] LABS: Rheumatoid Factor 20 IU/mL (0-15)
== END | disposition home or self-care (01) ==
LOC: LABWHC1 11:14
PROVIDERS: ATTEND Podiatrist Foot & Ankle Surgery
DX: M19.90 Unspecified osteoarthritis, unspecified site (principal)
CPT/HCPCS: 36415; 84550; 85652; 86038; 86140; 86431

== ENCOUNTER → 2017-10-12 | Outpatient (CLI) | payer MEDICARE ==
--- NOTE | 2017-10-13 08:17 | US ---
EXAMINATION TYPE: US venous doppler duplex LE RT DATE OF EXAM: 10/12/2017 6:24 PM COMPARISON: NONE CLINICAL HISTORY: M79.89 Other specified soft tissue disorders. Right leg pain and edema. SIDE PERFORMED: Right TECHNIQUE: The lower extremity deep venous system is examined utilizing real time linear array sonog sergio with graded compression, doppler sonography and color-flow sonography. VESSELS IMAGED: External Iliac Vein (EIV) Common Femoral Vein Deep Femoral Vein Greater Saphenous Vein * Femoral Vein Popliteal Vein Small Saphenous Vein * Proximal Calf Veins (* superficial vessels) Grayscale, color doppler, spectral doppler imaging performed of the deep veins of the lower extremiti es. There is normal flow, compressibility, vascular waveforms. Right Leg: Negative for DVT No evidence of DVT right leg. IMPRESSION: No evident deep venous thrombosis at or above the right knee, follow-up as indicated
== END | disposition home or self-care (01) ==
LOC: RADUSMAIN 18:04
PROVIDERS: ATTEND Internal Medicine
DX: I87.8 Other specified disorders of veins (principal)

== ENCOUNTER 2018-08-08 18:06 | Inpatient (IN) | payer MEDICARE ==
[2018-08-08] MEDS ORDERED: SODIUM CHLORIDE 0.9% 500 ML 500 ML IV STA (19:02)
[2018-08-08] MEDS ORDERED: MORPHINE SULFATE 4 MG/ML SYRINGE IV STA (19:02)
--- NOTE | 2018-08-08 19:15 | ED ---
General Adult HPI - General Chief complaint: Abdominal Pain Stated complaint: Stomach/abd.pain Time Seen by Provider: 08/08/18 18:35 Source: patient, RN notes reviewed, old records reviewed Mode of arrival: wheelchair Limitations: physical limitation - History of Present Illness Initial comments: 87-year-old female presents with abdominal pain. Pain again this morning at approximately 10 AM. Initially was epigastric, has progressed to lower abdomina l pain. She does report some distention. She had a bowel movement this morning prior to the onset of her symptoms. She's had normal bowel movements and has not passed any gas since the onset of her pain. She's had some nausea. No vomiting. No fever or chills. No dysuria. No previous abdominal surgeries. - Related Data Home Medications Medication Instructions Recorded Confirmed Levothyroxine Sodium [Synthroid] 50 mcg PO DAILY 11/20/16 08/08/18 Allergies Allergy/AdvReac Type Severity Reaction Status Date / Time No Known Allergies Allergy Verified 08/08/18 19:37 Review of Systems ROS Statement: Those systems with pertinent positive or pertinent negative responses have been documented in the HPI. ROS Other: All systems not noted in ROS Statement are negative. Past Medical History Past Medical History: Thyroid Disorder History of Any Multi-Drug Resistant Organisms: None Reported Past Surgical History: Orthopedic Surgery Additional Past Surgical History / Comment(s): right elbow surgery BACK SURGERY 1999 Past Psychological History: No Psychological Hx Reported Smoking Status: Never smoker General Exam Limitations: physical limitation General appearance: alert, in no apparent distress Head exam: Present: atraumatic, normocephalic Eye exam: Present: normal appearance, PERRL ENT exam: Present: mucous membranes dry Neck exam: Present: normal inspection. Absent: tenderness, meningismus Respiratory exam: Present: normal lung sounds bilaterally. Absent: respiratory distress, wheezes Cardiovascular Exam: Present: normal rhythm, tachycardia GI/Abdominal exam: Present: soft, distended, tenderness (Generalized tenderness to palpation,). Absent: guarding, rebound Extremities exam: Present: normal inspection, normal capillary refill. Absent: pedal edema, calf tenderness Neurological exam: Present: alert, oriented X3, CN II-XII intact. Absent: motor sensory deficit Psychiatric exam: Present: normal affect, normal mood Skin exam: Present: warm, dry, intact. Absent: cyanosis, diaphoretic Course Vital Signs 08/08/18 18:22 Temperature 98.3 F Pulse Rate 116 H Respiratory 18 Rate Blood Pressure 151/90 O2 Sat by Pulse 97 Oximetry Medical Decision Making - Medical Decision Making 87-year-old presenting with abdominal pain. Pain began as epigastric, progressed to lower abdomen. On exam patient is distended with generalized tenderness. There is concern for obstruction given the history and exam. Patient has normal white blood cell count, stable hemoglobin, mild lactic acid 2.4. CT is performed, this is negative for obstruction, do show dilated gallbladder with pericholecystic fluid consistent with acute cholecystitis. Case is discussed with Dr. Rosenberg, will accept admission, internal medicine will be placed on consult. Acute cholecystitis - Lab Data Result diagrams: 08/08/18 19:34 08/08/18 19:34 Lab Results 08/08/18 08/08/18 08/08/18 Range/Units 19:34 19:34 19:34 WBC 6.8 (3.8-10.6) k/uL RBC 4.28 (3.80-5.40) m/uL Hgb 13.5 (11.4-16.0) gm/dL Hct 41.1 (34.0-46.0) % MCV 96.1 (80.0-100.0) fL MCH 31.7 (25.0-35.0) pg MCHC 33.0 (31.0-37.0) g/dL RDW 15.7 H (11.5-15.5) % Plt Count 294 (150-450) k/uL Neutrophils % 82 % Lymphocytes % 12 % Monocytes % 4 % Eosinophils % 1 % Basophils % 0 % Neutrophils # 5.6 (1.3-7.7) k/uL Lymphocytes # 0.8 L (1.0-4.8) k/uL Monocytes # 0.3 (0-1.0) k/uL Eosinophils # 0.1 (0-0.7) k/uL Basophils # 0.0 (0-0.2) k/uL PT (9.0-12.0) sec INR (<1.2) APTT (22.0-30.0) sec Sodium 132 L (137-145) mmol/L Potassium 4.4 (3.5-5.1) mmol/L Chloride 96 L (98-107) mmol/L Carbon Dioxide 24 (22-30) mmol/L Anion Gap 12 mmol/L BUN 18 H (7-17) mg/dL Creatinine 0.47 L (0.52-1.04) mg/dL Est GFR (CKD-EPI)AfAm >90 (>60 ml/min/1.73 sqM) Est GFR (CKD-EPI)NonAf 89 (>60 ml/min/1.73 sqM) Glucose 135 H (74-99) mg/dL Plasma Lactic Acid Freddy 2.4 H* (0.7-2.0) mmol/L Calcium 9.4 (8.4-10.2) mg/dL Total Bilirubin 0.7 (0.2-1.3) mg/dL AST 39 H (14-36) U/L ALT 26 (9-52) U/L Alkaline Phosphatase 95 (38-126) U/L Total Protein 7.4 (6.3-8.2) g/dL Albumin 4.6 (3.5-5.0) g/dL Amylase 125 H (30-110) U/L Lipase 62 (23-300) U/L Urine Color Urine Appearance (Clear) Urine pH (5.0-8.0) Ur Specific [place] (1.001-1.035) Urine Protein (Negative) Urine Glucose (UA) (Negative) Urine Ketones (Negative) Urine Blood (Negative) Urine Nitrite (Negative) Urine Bilirubin (Negative) Urine Urobilinogen (<2.0) mg/dL Ur Leukocyte Esterase (Negative) Urine RBC (0-5) /hpf Urine WBC (0-5) /hpf Ur Squamous Epith Cells (0-4) /hpf Amorphous Sediment (None) /hpf Urine Bacteria (None) /hpf Urine Mucus (None) /hpf 08/08/18 08/08/18 Range/Units 19:34 19:34 WBC (3.8-10.6) k/uL RBC (3.80-5.40) m/uL Hgb (11.4-16.0) gm/dL Hct (34.0-46.0) % MCV (80.0-100.0) fL MCH (25.0-35.0) pg MCHC (31.0-37.0) g/dL RDW (11.5-15.5) % Plt Count (150-450) k/uL Neutrophils % % Lymphocytes % % Monocytes % % Eosinophils % % Basophils % % Neutrophils # (1.3-7.7) k/uL Lymphocytes # (1.0-4.8) k/uL Monocytes # (0-1.0) k/uL Eosinophils # (0-0.7) k/uL Basophils # (0-0.2) k/uL PT 10.3 (9.0-12.0) sec INR 1.0 (<1.2) APTT 22.5 (22.0-30.0) sec Sodium (137-145) mmol/L Potassium (3.5-5.1) mmol/L Chloride (98-107) mmol/L Carbon Dioxide (22-30) mmol/L Anion Gap mmol/L BUN (7-17) mg/dL Creatinine (0.52-1.04) mg/dL Est GFR (CKD-EPI)AfAm (>60 ml/min/1.73 sqM) Est GFR (CKD-EPI)NonAf (>60 ml/min/1.73 sqM) Glucose (74-99) mg/dL Plasma Lactic Acid Freddy (0.7-2.0) mmol/L Calcium (8.4-10.2) mg/dL Total Bilirubin (0.2-1.3) mg/dL AST (14-36) U/L ALT (9-52) U/L Alkaline Phosphatase (38-126) U/L Total Protein (6.3-8.2) g/dL Albumin (3.5-5.0) g/dL Amylase (30-110) U/L Lipase (23-300) U/L Urine Color Yellow Urine Appearance Clear (Clear) Urine pH 7.0 (5.0-8.0) Ur Specific [place] 1.019 (1.001-1.035) Urine Protein 1+ H (Negative) Urine Glucose (UA) Negative (Negative) Urine Ketones 1+ H (Negative) Urine Blood Negative (Negative) Urine Nitrite Negative (Negative) Urine Bilirubin Negative (Negative) Urine Urobilinogen <2.0 (<2.0) mg/dL Ur Leukocyte Esterase Negative (Negative) Urine RBC 4 (0-5) /hpf Urine WBC 3 (0-5) /hpf Ur Squamous Epith Cells 2 (0-4) /hpf Amorphous Sediment Rare H (None) /hpf Urine Bacteria Rare H (None) /hpf Urine Mucus Rare H (None) /hpf Disposition Clinical Impression: Acute cholecystitis Disposition: ADMITTED IP TO THIS HOSP Condition: Stable Is patient prescribed a controlled substance at d/c from ED?: No Referrals: Jn Morris MD [Primary Care Provider] - 1-2 days Decision to Admit Reason: Admit from EC Decision Date: 08/08/18 Decision Time: 21:17
--- NOTE | 2018-08-08 19:25 | XR ---
EXAMINATION TYPE: XR KUB DATE OF EXAM: 08/08/2018 COMPARISON: 11/20/2016 HISTORY: Abdominal distention TECHNIQUE: 2 views FINDINGS: There is mild lumbar dextroscoliosis. There is no sign of intestinal obstruction or pneumop eritoneum. Fecal pattern is normal. 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 There is left hip nailing. There i s no sign of a mass. Heart appears enlarged. There are no pathologic calcifications over the kidneys. IMPRESSION: Nonacute abdomen. No significant change.
[2018-08-08 19:47] LABS: Basophils % (A) 0 %; Eosinophils # (A) 0.1 k/uL (0-0.7); Eosinophils % (A) 1 %; HCT 41.1 % (34.0-46.0); HGB 13.5 gm/dL (11.4-16.0); Lymphocytes # (A) 0.8 k/uL (1.0-4.8); Lymphocytes % (A) 12 %; MCH 31.7 pg (25.0-35.0); MCV 96.1 fL (80.0-100.0); Mean Platelet Volume 7.7; Monocytes # (A) 0.3 k/uL (0-1.0); Monocytes % (A) 4 %; Neutrophils # (A) 5.6 k/uL (1.3-7.7); Neutrophils % (A) 82 %; Platelet Count 294 k/uL (150-450); RBC 4.28 m/uL (3.80-5.40); RDW 15.7 % (11.5-15.5); WBC 6.8 k/uL (3.8-10.6)
[2018-08-08 19:55] LABS: ALT 26 U/L (9-52); AST 39 U/L (14-36); African American GFR (CKD) >90 (>60 ml/min/1.73 sqM); Albumin 4.6 g/dL (3.5-5.0); Alkaline Phosphatase 95 U/L (38-126); Amylase 125 U/L (30-110); Anion Gap 12 mmol/L; Blood Urea Nitrogen 18 mg/dL (7-17); Calcium 9.4 mg/dL (8.4-10.2); Carbon Dioxide 24 mmol/L (22-30); Chloride 96 mmol/L (98-107); Glucose 135 mg/dL (74-99); Lipase 62 U/L (23-300); Partial Thromboplastin Time 22.5 sec (22.0-30.0); Potassium 4.4 mmol/L (3.5-5.1); Prothrombin Time 10.3 sec (9.0-12.0); Sodium 132 mmol/L (137-145); Total Bilirubin 0.7 mg/dL (0.2-1.3); Total Protein 7.4 g/dL (6.3-8.2)
[2018-08-08 20:07] LABS: Amorphous Sediment,Urine Rare /hpf; Appearance,Urine Clear (Clear); Bacteria,Urine Rare /hpf; Bilirubin,Urine Negative (Negative); Blood,Urine Negative (Negative); Color,Urine Yellow; Glucose,Urine (UA) Negative (Negative); Ketones,Urine 1+ (Negative); Leukocyte Esterase,Urine Negative (Negative); Mucus,Urine Rare /hpf; Nitrite,Urine Negative (Negative); Protein,Urine 1+ (Negative); RBC,Urine 4 /hpf (0-5); Specific Gravity,Urine 1.019 (1.001-1.035); Squamous Epithelial Cell,Urine 2 /hpf (0-4); Urobilinogen,Urine <2.0 mg/dL (<2.0); WBC,Urine 3 /hpf (0-5)
--- NOTE | 2018-08-08 21:03 | CT ---
EXAMINATION TYPE: CT abdomen pelvis w con DATE OF EXAM: 08/08/2018 COMPARISON: 01/09/2015 HISTORY: Generalized abdominal pain and nausea. CT DLP: 721.5 mGycm Automated exposure control for dose reduction was used. TECHNIQUE: Helical acquisition of images was performed from the lung bases through the pelvis. CONTRAST: Performed without Oral Contrast and with IV Contrast, patient injected with 100 mL of Isovue 300. FINDINGS: Heart is enlarged. There is no pleural effusion. There is pectus excavatum chest deformity. There are numerous calcified splenic granulomata. Stomach appears normal. Liver shows no focal defect . Bile ducts are not dilated. There is no evidence of pancreatic mass. There is dilated gallbladder with pericholecystic fluid. Gallbladder measures 5 x 8 cm. There is no adrenal mass. Kidneys show satisfactory contrast opacification. There is no hydronephrosi s. Ureters are not dilated. 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 There is small blair unt of free fluid in the pelvis. There is metal artifact from bilateral hip surgery. Bladder distends smoothly. There is no mesenteric edema. There is no free air. There is no evidence of a bowel obstruction. IMPRESSION: MILD SUBSEGMENTAL ATELECTASIS AT THE LUNG BASES. DILATED GALLBLADDER WITH PERICHOLECYSTIC FLUID CONSISTENT WITH CHOLECYSTITIS. THIS IS A CHANGE COMPAR ED TO OLD EXAM. MINIMAL FREE FLUID IN THE PELVIS IS A CHANGE COMPARED TO OLD EXAM.
[2018-08-08] MEDS ORDERED: PIPERACILLIN-TAZOBACTAM 3.375 GM in SODIUM CHLORIDE 0.9% 100 ML IVPB STA (21:08)
[2018-08-08] MEDS ORDERED: ACETAMINOPHEN TAB 325 MG TAB PO PRN (21:17)
[2018-08-08] MEDS ORDERED: ONDANSETRON 4 MG/2 ML VIAL IVP PRN (21:17)
[2018-08-08] MEDS ORDERED: NALOXONE 0.4 MG/ML 1 ML VIAL IV PRN (21:17)
[2018-08-08] MEDS ORDERED: HYDROmorphone 0.5 MG/0.5 ML SYRINGE IVP PRN (21:17)
[2018-08-08] MEDS: SODIUM CHLORIDE 0.9% 1,000 ML IV SCH (21:22)
--- NOTE | 2018-08-08 22:09 | P.CONS ---
History of Present Illness - Reason for Consult Consult date: 08/08/18 - History of Present Illness The patient is an 87 yo F with a PMH of hypothyroidism presented to the ED for sudden onset of epigastric abdominal pain. The patient reports that she was in her usual state of health when she began having 9/10 epigastric burning like, non-radiating pain at 10 am earlier today. The pain was non-remitting, with no alleviating or exacerbating factors. She notes that the pain then gradually move d down to her lower abdomen and she had associated nausea without vomiting or diarrhea. She further denied fever or dysuria. She notes that she has never had such pain before, has never had issues with her gallbladder, nor was she ever told she had stones. At time of the interview, she notes that her pain had improved to a 1/10 after she received the morphine. She underwent an extensive evaluation in the ED w/ CT abd/pelvis showing findings consistent with acute cholecystitis with minimal free fluid in the pelvis. Laboratory evaluation revealed a WBC 6.8, Hgb 13.5, lactic acid 2.4, UA unremarkable, and Cr 0.47. She was given started on IV abxs with Zosyn, was given NS 1 L bolus with zofran and pain control w/ morphine and dilaudid and was admitted under the surgery service with medicine on consult. Review of Systems Pertinent positives and negatives as discussed in HPI, a complete review of systems was performed and all other systems are negative. Past Medical History Past Medical History: Thyroid Disorder History of Any Multi-Drug Resistant Organisms: None Reported Past Surgical History: Orthopedic Surgery Additional Past Surgical History / Comment(s): right elbow surgery BACK SURGERY 1999 Past Psychological History: No Psychological Hx Reported Smoking Status: Never smoker - Past Family History Mother Family Medical History: Hyperlipidemia Medications and Allergies Home Medications Medication Instructions Recorded Confirmed Type Levothyroxine Sodium [Synthroid] 50 mcg PO DAILY 11/20/16 08/08/18 History Allergies Allergy/AdvReac Type Severity Reaction Status Date / Time No Known Allergies Allergy Verified 08/08/18 19:37 Physical Exam Vitals: Vital Signs Temp Pulse Resp BP Pulse Ox 08/08/18 18:22 98.3 F 116 H 18 151/90 97 Intake and Output 08/08/18 08/08/18 08/08/18 06:59 14:59 22:59 Other: Weight 52.163 kg General: non toxic, no distress, appears at stated age, normal weight Derm: no unusual rashes/lesions no unusual ecchymoses, warm, dry Head: atraumatic, normocephalic, symmetric Eyes: EOMI, no lid lag, anicteric sclera, pupils equal round reactive to light ENT: Nose and ears atraumatic, no thrush, no pharyngeal erythema Neck: No thyromegaly, no cervical lymphadenopathy, trachea midline, supple Mouth: no lip lesion, mucus membranes moist Cardiovascular: S1S2 reg, no murmur, positive posterior tibial pulse bilateral, no edema, capillary refill less than 2 seconds Lungs: CTA bilateral, no rhonchi, no rales , no accessory muscle use Abdominal: soft, diffuse mild-moderate lower abdominal tenderness, no RUQ tenderness, moderate distension, no guarding, no appreciable organomegaly, normal bowel sounds Ext: no gross muscle atrophy, muscle strength 5 out of 5 in all 4 extremities grossly, no contractures, Neuro: CN II-XI grossly intact, light touch intact all 4 extremities, finger to nose within normal limits, Psych: Alert, oriented, appropriate affect Results CBC & Chem 7: 08/08/18 19:34 08/08/18 19:34 Labs: Abnormal Lab Results - Last 24 Hours (Table) 08/08/18 08/08/18 08/08/18 Range/Units 19:34 19:34 19:34 RDW 15.7 H (11.5-15.5) % Lymphocytes # 0.8 L (1.0-4.8) k/uL Sodium 132 L (137-145) mmol/L Chloride 96 L (98-107) mmol/L BUN 18 H (7-17) mg/dL Creatinine 0.47 L (0.52-1.04) mg/dL Glucose 135 H (74-99) mg/dL Plasma Lactic Acid Freddy 2.4 H* (0.7-2.0) mmol/L AST 39 H (14-36) U/L Amylase 125 H (30-110) U/L Urine Protein (Negative) Urine Ketones (Negative) Amorphous Sediment (None) /hpf Urine Bacteria (None) /hpf Urine Mucus (None) /hpf 08/08/18 Range/Units 19:34 RDW (11.5-15.5) % Lymphocytes # (1.0-4.8) k/uL Sodium (137-145) mmol/L Chloride (98-107) mmol/L BUN (7-17) mg/dL Creatinine (0.52-1.04) mg/dL Glucose (74-99) mg/dL Plasma Lactic Acid Freddy (0.7-2.0) mmol/L AST (14-36) U/L Amylase (30-110) U/L Urine Protein 1+ H (Negative) Urine Ketones 1+ H (Negative) Amorphous Sediment Rare H (None) /hpf Urine Bacteria Rare H (None) /hpf Urine Mucus Rare H (None) /hpf Assessment and Plan Plan: Elevated lactate -C/w IVFs and monitor to resolution Hypothyroidism -C/w levothyroxine home dose Acute cholecystitis -As per the surgery service DVT prophylaxis -Heparin We appreciate this opportunity to be involved in this patient's care. We will follow the patient with you. For any further questions, please not hesitate to contact the sound inpatient team.
[2018-08-09] MEDS: LEVOTHYROXINE 50 MCG TAB PO SCH (00:50)
[2018-08-09] MEDS: PIPERACILLIN-TAZOBACTAM 3.375 GM in SODIUM CHLORIDE 0.9% 100 ML IVPB SCH ×3 (04:53→21:23)
[2018-08-09 08:51] LABS: ALT 24 U/L (9-52); AST 31 U/L (14-36); African American GFR (CKD) >90 (>60 ml/min/1.73 sqM); Albumin 3.1 g/dL (3.5-5.0); Alkaline Phosphatase 65 U/L (38-126); Anion Gap 6 mmol/L; Blood Urea Nitrogen 16 mg/dL (7-17); Calcium 8.4 mg/dL (8.4-10.2); Carbon Dioxide 25 mmol/L (22-30); Chloride 102 mmol/L (98-107); Glucose 104 mg/dL (74-99); Potassium 3.7 mmol/L (3.5-5.1); Sodium 133 mmol/L (137-145); Total Protein 5.4 g/dL (6.3-8.2)
[2018-08-09 09:07] LABS: HCT 32.4 % (34.0-46.0); MCH 32.7 pg (25.0-35.0); MCHC 33.8 g/dL (31.0-37.0); MCV 96.7 fL (80.0-100.0); Mean Platelet Volume 7.5; Platelet Count 256 k/uL (150-450); RBC 3.35 m/uL (3.80-5.40); RDW 15.6 % (11.5-15.5); WBC 6.4 k/uL (3.8-10.6)
[2018-08-09] MEDS: SODIUM CHLORIDE 0.9% 1,000 ML IV SCH (10:27)
[2018-08-09] MEDS ORDERED: IV FLUID CONTINUATION 1,000 ML IV ONE (11:53)
--- NOTE | 2018-08-09 15:08 | P.PN ---
Subjective Progress Note Date: 08/09/18 Principal diagnosis: Cholecystitis Patient was seen and examined. No acute events overnight. Patient reports well-controlled right upper quadrant abdominal pain. Severity is 1 out of 10 currently. She denies any nausea or vomiting. Patient reports a decreased appetite over the last couple of weeks. Also has reported abdominal distention without any other symptoms over the past week. She denies any chest pain, shortness of breath or palpitations. No fever or chills. Objective - Vital Signs Vital signs: Vital Signs Temp 98.8 F 08/09/18 14:26 Pulse 85 08/09/18 14:26 Resp 12 08/09/18 14:26 BP 125/69 08/09/18 14:26 Pulse Ox 96 08/09/18 14:26 Intake & Output 08/08/18 08/09/18 08/09/18 18:59 06:59 18:59 Intake Total 525 625 Balance 525 625 Weight 52.163 kg Intake: Intake, IV Titration 525 625 Amount Piperacillin-Tazobactam 3 100 .375 gm In Sodium Chloride 0.9% 100 ml @ 200 mls/hr IVPB ONCE STA Rx#:[id number] Sodium Chloride 0.9% 1, 525 525 000 ml @ 75 mls/hr IV . [id number] [facility] Rx#:[id number] Other: # Voids 3 - Exam General: [non toxic], [no distress], [appears at stated age] Derm: [warm], [dry] Head: [atraumatic], [normocephalic], [symmetric] Eyes: [EOMI], [no lid lag], [anicteric sclera] Mouth: [no lip lesion], [mucus membranes moist] Cardiovascular: [S1S2 reg], [tachycardia], [positive DP pulse bilateral], Lungs: [CTA bilateral], [no rhonchi, no rales] , [no accessory muscle use] Abdominal: [soft], [positive Velazquez sign, no rebound tenderness], [no guarding], [no appreciable organomegaly] Ext: [no gross muscle atrophy], [no edema], [no contractures] Neuro: [no focal neuro deficits] Psych: [Alert], [oriented], [appropriate affect] - Labs CBC & Chem 7: 08/09/18 08:01 08/09/18 08:01 Labs: Abnormal Lab Results - Last 24 Hours (Table) 08/08/18 08/08/18 08/08/18 Range/Units 19:34 19:34 19:34 RBC (3.80-5.40) m/uL Hgb (11.4-16.0) gm/dL Hct (34.0-46.0) % RDW 15.7 H (11.5-15.5) % Lymphocytes # 0.8 L (1.0-4.8) k/uL Sodium 132 L (137-145) mmol/L Chloride 96 L (98-107) mmol/L BUN 18 H (7-17) mg/dL Creatinine 0.47 L (0.52-1.04) mg/dL Glucose 135 H (74-99) mg/dL Plasma Lactic Acid Freddy 2.4 H* (0.7-2.0) mmol/L AST 39 H (14-36) U/L Total Protein (6.3-8.2) g/dL Albumin (3.5-5.0) g/dL Amylase 125 H (30-110) U/L Urine Protein (Negative) Urine Ketones (Negative) Amorphous Sediment (None) /hpf Urine Bacteria (None) /hpf Urine Mucus (None) /hpf 08/08/18 08/09/18 08/09/18 Range/Units 19:34 08:01 08:01 RBC 3.35 L (3.80-5.40) m/uL Hgb 11.0 L (11.4-16.0) gm/dL Hct 32.4 L (34.0-46.0) % RDW 15.6 H (11.5-15.5) % Lymphocytes # (1.0-4.8) k/uL Sodium 133 L (137-145) mmol/L Chloride (98-107) mmol/L BUN (7-17) mg/dL Creatinine (0.52-1.04) mg/dL Glucose 104 H (74-99) mg/dL Plasma Lactic Acid Freddy (0.7-2.0) mmol/L AST (14-36) U/L Total Protein 5.4 L (6.3-8.2) g/dL Albumin 3.1 L (3.5-5.0) g/dL Amylase (30-110) U/L Urine Protein 1+ H (Negative) Urine Ketones 1+ H (Negative) Amorphous Sediment Rare H (None) /hpf Urine Bacteria Rare H (None) /hpf Urine Mucus Rare H (None) /hpf Assessment and Plan Assessment: Assessment and Plan Lactic acidosis Hyponatremia Hypothyroidism Acute cholecystitis Lactic acid 2.4-1.1. Likely secondary to dehydration. Plans: Continue normal saline at 75 mL per hour. Resolved. Sodium 132-133. Likely secondary to dehydration. Plans: Continue IVF as above. Daily BMP. Plans: Continue Synthroid As seen on CT abdomen and pelvis. Patient is afebrile with no leukocytosis. Plans: Management as per general surgery. Continue Zosyn for antibiotic m anagement of cholecystitis. Pain management with Tylenol or [place] as needed. Zofran as needed for nausea and vomiting. Follow blood cultures. Thank you for involving us in the care of this patient. Plans for possible surgery today. Patient is pending clinical improvement.
[2018-08-09] MEDS ORDERED: LACTATED RINGERS 1,000 ML IV ONE (16:30)
[2018-08-09] MEDS ORDERED: LIDOCAINE 1% 20 ML VIAL (10MG/ML) FOR IV START INTRADERMA ONE (16:30)
[2018-08-09] MEDS ORDERED: HEPARIN SODIUM,PORCINE 5,000 UNIT/ML 1 ML VIAL SQ ONE (17:22)
--- NOTE | 2018-08-09 17:29 | P.GSHP ---
History of Present Illness H&P Date: 08/09/18 Chief Complaint: Right upper quadrant pain This is an 87-year-old female who was admitted to the hospital with complaints of right upper quadrant pain. Patient's workup found have evidence of acute cholecystitis with dilated gallbladder, thickened gallbladder wall and peric holecystic fluid Past Medical History Past Medical History: Thyroid Disorder History of Any Multi-Drug Resistant Organisms: None Reported Past Surgical History: Orthopedic Surgery Additional Past Surgical History / Comment(s): right elbow surgery BACK SURGERY 1999, April 2018 R Hip Replacement Past Psychological History: No Psychological Hx Reported Smoking Status: Never smoker Past Alcohol Use History: None Reported Past Drug Use History: None Reported - Past Family History Mother Family Medical History: Hyperlipidemia Medications and Allergies Home Medications Medication Instructions Recorded Confirmed Type Levothyroxine Sodium [Synthroid] 50 mcg PO DAILY 11/20/16 08/08/18 History Allergies Allergy/AdvReac Type Severity Reaction Status Date / Time No Known Allergies Allergy Verified 08/09/18 16:24 Surgical - Exam Vital Signs Temp Pulse Resp BP Pulse Ox 98.3 F 116 H 18 151/90 97 08/08/18 18:22 08/08/18 18:22 08/08/18 18:22 08/08/18 18:22 08/08/18 18:22 - General well developed, well nourished, no distress - Eyes PERRL - ENT normal pinna - Neck no masses - Respiratory normal expansion - Cardiovascular Rhythm: regular - Abdomen Abdomen: soft, non tender Results Dilated gallbladder with pericholecystic fluid - Labs 08/09/18 08:01 08/09/18 08:01 Abnormal Lab Results - Last 24 Hours (Table) 08/08/18 08/08/18 08/08/18 Range/Units 19:34 19:34 19:34 RBC (3.80-5.40) m/uL Hgb (11.4-16.0) gm/dL Hct (34.0-46.0) % RDW 15.7 H (11.5-15.5) % Lymphocytes # 0.8 L (1.0-4.8) k/uL Sodium 132 L (137-145) mmol/L Chloride 96 L (98-107) mmol/L BUN 18 H (7-17) mg/dL Creatinine 0.47 L (0.52-1.04) mg/dL Glucose 135 H (74-99) mg/dL Plasma Lactic Acid Freddy 2.4 H* (0.7-2.0) mmol/L AST 39 H (14-36) U/L Total Protein (6.3-8.2) g/dL Albumin (3.5-5.0) g/dL Amylase 125 H (30-110) U/L Urine Protein (Negative) Urine Ketones (Negative) Amorphous Sediment (None) /hpf Urine Bacteria (None) /hpf Urine Mucus (None) /hpf 08/08/18 08/09/18 08/09/18 Range/Units 19:34 08:01 08:01 RBC 3.35 L (3.80-5.40) m/uL Hgb 11.0 L (11.4-16.0) gm/dL Hct 32.4 L (34.0-46.0) % RDW 15.6 H (11.5-15.5) % Lymphocytes # (1.0-4.8) k/uL Sodium 133 L (137-145) mmol/L Chloride (98-107) mmol/L BUN (7-17) mg/dL Creatinine (0.52-1.04) mg/dL Glucose 104 H (74-99) mg/dL Plasma Lactic Acid Freddy (0.7-2.0) mmol/L AST (14-36) U/L Total Protein 5.4 L (6.3-8.2) g/dL Albumin 3.1 L (3.5-5.0) g/dL Amylase (30-110) U/L Urine Protein 1+ H (Negative) Urine Ketones 1+ H (Negative) Amorphous Sediment Rare H (None) /hpf Urine Bacteria Rare H (None) /hpf Urine Mucus Rare H (None) /hpf Diabetes panel 08/08/18 08/09/18 Range/Units 19:34 08:01 Sodium 132 L 133 L (137-145) mmol/L Potassium 4.4 3.7 (3.5-5.1) mmol/L Chloride 96 L 102 (98-107) mmol/L Carbon Dioxide 24 25 (22-30) mmol/L BUN 18 H 16 (7-17) mg/dL Creatinine 0.47 L 0.54 (0.52-1.04) mg/dL Glucose 135 H 104 H (74-99) mg/dL Calcium 9.4 8.4 (8.4-10.2) mg/dL AST 39 H 31 (14-36) U/L ALT 26 24 (9-52) U/L Alkaline Phosphatase 95 65 (38-126) U/L Total Protein 7.4 5.4 L (6.3-8.2) g/dL Albumin 4.6 3.1 L (3.5-5.0) g/dL Calcium panel 08/08/18 08/09/18 Range/Units 19:34 08:01 Calcium 9.4 8.4 (8.4-10.2) mg/dL Albumin 4.6 3.1 L (3.5-5.0) g/dL Pituitary panel 08/08/18 08/09/18 Range/Units 19:34 08:01 Sodium 132 L 133 L (137-145) mmol/L Potassium 4.4 3.7 (3.5-5.1) mmol/L Chloride 96 L 102 (98-107) mmol/L Carbon Dioxide 24 25 (22-30) mmol/L BUN 18 H 16 (7-17) mg/dL Creatinine 0.47 L 0.54 (0.52-1.04) mg/dL Glucose 135 H 104 H (74-99) mg/dL Calcium 9.4 8.4 (8.4-10.2) mg/dL Adrenal panel 08/08/18 08/09/18 Range/Units 19:34 08:01 Sodium 132 L 133 L (137-145) mmol/L Potassium 4.4 3.7 (3.5-5.1) mmol/L Chloride 96 L 102 (98-107) mmol/L Carbon Dioxide 24 25 (22-30) mmol/L BUN 18 H 16 (7-17) mg/dL Creatinine 0.47 L 0.54 (0.52-1.04) mg/dL Glucose 135 H 104 H (74-99) mg/dL Calcium 9.4 8.4 (8.4-10.2) mg/dL Total Bilirubin 0.7 1.0 (0.2-1.3) mg/dL AST 39 H 31 (14-36) U/L ALT 26 24 (9-52) U/L Alkaline Phosphatase 95 65 (38-126) U/L Total Protein 7.4 5.4 L (6.3-8.2) g/dL Albumin 4.6 3.1 L (3.5-5.0) g/dL Assessment and Plan Assessment: Acute cholecystitis. Patient will undergo laparoscopic cholecystectomy.
[2018-08-09] MEDS ORDERED: ePHEDrine SULFATE/0.9% NACL/PF 50 MG/5 ML SYRINGE IV ONE (18:05)
[2018-08-09] MEDS ORDERED: NEOSTIGMINE 1 MG/ML 10 ML VIAL ONE (18:05)
[2018-08-09] MEDS ORDERED: fentaNYL (PF) 50 MCG/ML 2 ML AMP ONE (18:05)
[2018-08-09] MEDS ORDERED: ESMOLOL 100 MG/10 ML VIAL ONE (18:05)
[2018-08-09] MEDS ORDERED: PROPOFOL 10 MG/ML 20 ML VIAL IV ONE (18:05)
[2018-08-09] MEDS ORDERED: ROCURONIUM BROMIDE 10 MG/ML 10 ML VIAL IV ONE (18:05)
[2018-08-09] MEDS ORDERED: SUCCINYLCHOLINE CHLORIDE 100 MG/5 ML SYR IV ONE (18:05)
[2018-08-09] MEDS ORDERED: GLYCOPYRROLATE 0.2 MG/ML 2 ML VIAL ONE (18:05)
[2018-08-09] MEDS ORDERED: LIDOCAINE 1% INJ 10MG/ML (20 ML MDV) ONE (18:05)
[2018-08-09] MEDS ORDERED: BUPIVACAIN-EPI 0.5%-1:200,000 30 ML VIAL SQ ONE (18:42)
[2018-08-09] MEDS ORDERED: HYDROmorphone 1 MG/ML 1 ML SYRINGE IVP PRN (18:59)
[2018-08-09] MEDS ORDERED: ONDANSETRON 4 MG/2 ML VIAL IVP PRN (19:00)
[2018-08-10] MEDS: SODIUM CHLORIDE 0.9% 1,000 ML IV SCH ×2 (01:03→19:12)
[2018-08-10] MEDS: PIPERACILLIN-TAZOBACTAM 3.375 GM in SODIUM CHLORIDE 0.9% 100 ML IVPB SCH ×3 (04:32→20:50)
[2018-08-10] MEDS: LEVOTHYROXINE 50 MCG TAB PO SCH (04:32)
--- NOTE | 2018-08-10 13:54 | P.PN ---
Subjective Progress Note Date: 08/10/18 Principal diagnosis: cholecystitis Patient was seen and examined. No acute events overnight. Patient reports 4-5 out of 10 pain in her abdomen at the site of surgical scar. Patient states that she has not been able to urinate since her surgery. She has also not passed any gas or had a bowel movement. She denies any chest pain, shortness of breath or palpitations. No nausea or vomiting. No fever or chills. Tolerating diet well. Objective - Vital Signs Vital signs: Vital Signs Temp 98.1 F 08/10/18 07:00 Pulse 59 L 08/10/18 07:00 Resp 15 08/10/18 07:00 BP 134/76 08/10/18 07:00 Pulse Ox 97 08/10/18 07:00 Intake & Output 08/09/18 08/10/18 08/10/18 18:59 06:59 18:59 Intake Total 925 1947 240 Output Total 5 Balance 920 1947 240 Intake: IV 300 0 Intake, IV Titration 625 930 Amount Piperacillin-Tazobactam 3 100 .375 gm In Sodium Chloride 0.9% 100 ml @ 200 mls/hr IVPB ONCE [facility] Rx#:[id number] Piperacillin-Tazobactam 3 100 .375 gm In Sodium Chloride 0.9% 100 ml @ 25 mls/hr IVPB Q8H [facility] Rx#: [id number] Sodium Chloride 0.9% 1, 525 830 000 ml @ 75 mls/hr IV . [id number] [facility] Rx#:[id number] Oral 1017 240 Output: Estimated Blood Loss 5 Other: # Voids 1 - Exam General: [non toxic], [no distress], [appears at stated age] Derm: [warm], [dry] Head: [atraumatic], [normocephalic], [symmetric] Eyes: [EOMI], [no lid lag], [anicteric sclera] Mouth: [no lip lesion], [mucus membranes moist] Cardiovascular: [S1S2 reg], [no murmur], [positive DP pulse bilateral], Lungs: [CTA bilateral], [no rhonchi, no rales] , [no accessory muscle use] Abdominal: [distended, similar to yesterday], [tenderness to palpation over the right upper and right lower quadrant without rebound], [no guarding], [no appreciable organomegaly], [surgical scar is clean dry intact] Ext: [no gross muscle atrophy], [no edema], [no contractures] Neuro: [no focal neuro deficits] Psych: [Alert], [oriented], [appropriate affect] - Labs CBC & Chem 7: 08/09/18 08:01 08/09/18 08:01 Labs: Microbiology - Last 24 Hours (Table) 08/08/18 21:18 Blood Culture - Preliminary Blood No Growth after 24 hours Assessment and Plan Assessment: Assessment and Plan Urinary retention Lactic acidosis Hyponatremia Hypothyroidism Acute cholecystitis Unable to urinate since prior to surgery. Plans: Attempt voiding trial. Bladder scan if unsuccessful. Intermittent cath. Lactic acid 2.4-1.1. Likely secondary to dehydration. Plans: Continue normal saline at 75 mL per hour. Resolved. Sodium 132-133. Likely secondary to dehydration. Plans: Continue IVF as above. Daily BMP. Plans: Continue Synthroid As seen on CT abdomen and pelvis. Patient is afebrile with no leukocytosis. Plans: Management as per general surgery. Continue Zosyn for antibiotic management of cholecystitis. Pain management with Tylenol or [place] as needed. Zofran as needed for nausea and vomiting. Follow blood cultures. Thank you for involving us in the care of this patient. Patient is pending clinical improvement. DC as per General surgery recommendations.
--- NOTE | 2018-08-10 17:16 | P.PN ---
Progress Note - Text Progress Note Date: 08/10/18 The patient is no complaints of pain. She does feel bloated. On exam her vital signs are stable. Her abdomen soft. Liver function tests are within normal limits. Patient is status post laparoscopic ostectomy for acute gangrenous cholecystitis. Patient most likely has a mild ileus. She'll remain on diet as tolerated.
[2018-08-11] MEDS: SODIUM CHLORIDE 0.9% 1,000 ML IV SCH ×2 (03:37→21:34)
[2018-08-11] MEDS: PIPERACILLIN-TAZOBACTAM 3.375 GM in SODIUM CHLORIDE 0.9% 100 ML IVPB SCH ×3 (04:43→21:33)
[2018-08-11] MEDS: LEVOTHYROXINE 50 MCG TAB PO SCH (05:16)
--- NOTE | 2018-08-11 12:37 | P.PN ---
Progress Note - Text Progress Note Date: 08/11/18 The patient's complaints of constipation. She states her pain is a 0 out of 10 while resting in bed. On exam her vital signs are stable. Her abdomen is soft. There is significant abdominal distention. There is no rebound or guarding. Status post laparoscopic cholecystectomy for gangrenous cholecystitis. Patient will remain on liquid diet until she has significant bowel function.
[2018-08-11] MEDS: BISACODYL 10 MG SUPP RECTAL STA ×2 (13:50→18:31)
--- NOTE | 2018-08-11 15:05 | P.PN ---
Subjective Progress Note Date: 08/11/18 Principal diagnosis: Cholecystitis Patient was seen and examined. No acute events overnight. Patient reports abdominal pain, only when she coughs or laughs. She denies any nausea or vomiting. No fever or chills. Tolerating diet well. Complains of abdominal distention that has been ongoing for the past couple of weeks. Able to urinate now. Had a bowel movement this morning. She denies any chest pain shortness of breath or palpitations. Objective - Vital Signs Vital signs: Vital Signs Temp 97.6 F 08/11/18 14:44 Pulse 65 08/11/18 14:44 Resp 14 08/11/18 14:44 BP 143/69 08/11/18 14:44 Pulse Ox 98 08/11/18 14:44 Intake & Output 08/10/18 08/11/18 08/11/18 18:59 06:59 18:59 Intake Total 790 1020 240 Output Total 1555 2205 750 Balance -313 -1185 -510 Intake: Intake, IV Titration 820 Amount Piperacillin-Tazobactam 3 200 .375 gm In Sodium Chloride 0.9% 100 ml @ 25 mls/hr IVPB Q8H [facility] Rx#: [id number] Sodium Chloride 0.9% 1, 620 000 ml @ 75 mls/hr IV . [id number] [facility] Rx#:[id number] Oral 790 200 240 Output: Urine 555 2205 750 Straight 1000 Post Void Residual 1000 Other: # Voids 2 4 - Exam General: [non toxic], [no distress], [appears at stated age] Derm: [warm], [dry] Head: [atraumatic], [normocephalic], [symmetric] Eyes: [EOMI], [no lid lag], [anicteric sclera] Mouth: [no lip lesion], [mucus membranes moist] Cardiovascular: [S1S2 reg], [no murmur], [positive DP pulse bilateral], Lungs: [CTA bilateral], [no rhonchi, no rales] , [no accessory muscle use] Abdominal: [distended, similar to yesterday], [tenderness to palpation over the laparoscopic scars without rebound], [no guarding], [no appreciable organomegaly], [surgical scar is clean dry intact] Ext: [no gross muscle atrophy], [no edema], [no contractures] Neuro: [no focal neuro deficits] Psych: [Alert], [oriented], [appropriate affect] - Labs CBC & Chem 7: 08/09/18 08:01 08/09/18 08:01 Labs: Microbiology - Last 24 Hours (Table) 08/08/18 21:18 Blood Culture - Preliminary Blood No Growth after 48 hours Assessment and Plan Assessment: Assessment and Plan Lactic acidosis Hyponatremia Hypothyroidism Acute cholecystitis Resolved: Urinary retention Lactic acid 2.4-1.1. Likely secondary to dehydration. Plans: Continue normal saline at 75 mL per hour. Resolved. Sodium 132-133. Likely secondary to dehydration. Plans: Continue IVF as above. BMP tomorrow morning. Plans: Continue Synthroid As seen on CT abdomen and pelvis. Patient is afebrile with no leukocytosis. Blood cultures negative at 48 hours. Plans: Management as per general surgery. Continue Zosyn for antibiotic management of cholecystitis. Pain management with Tylenol or [place] as needed. Zofran as needed for nausea and vomiting. Follow blood cultures. Thank you for involving us in the care of this patient. Patient is pending clinical improvement. DC as per General surgery recommendations.
[2018-08-11 20:03] VITALS: RESP 18
[2018-08-12 02:54] VITALS: TEMP 98.4
[2018-08-12] MEDS: LEVOTHYROXINE 50 MCG TAB PO SCH (03:11)
[2018-08-12] MEDS: PIPERACILLIN-TAZOBACTAM 3.375 GM in SODIUM CHLORIDE 0.9% 100 ML IVPB SCH (04:18)
[2018-08-12] MEDS: SODIUM CHLORIDE 0.9% 1,000 ML IV SCH (04:19)
[2018-08-12 07:14] VITALS: BP 124/77; PULSE 109
--- NOTE | 2018-08-12 08:47 | P.PN ---
Subjective Progress Note Date: 08/12/18 Principal diagnosis: Cholecystitis Patient was seen and examined. No acute events overnight. Patient reports improvement in abdominal distention. Had a small bowel movement this morning. Urinating freely. Tolerating diet well. She denies any chest pain, shortness of breath or palpitations. No nausea or vomiting. No fever or chills. Looking forward to going home. Objective - Vital Signs Vital signs: Vital Signs Temp 98.4 F 08/12/18 06:57 Pulse 109 H 08/12/18 06:57 Resp 18 08/12/18 06:57 BP 124/77 08/12/18 06:57 Pulse Ox 96 08/12/18 06:57 Intake & Output 08/11/18 08/12/18 08/12/18 18:59 06:59 18:59 Intake Total 480 2770 240 Output Total 750 Balance -270 2770 240 Intake: Intake, IV Titration 1150 Amount Piperacillin-Tazobactam 3 100 .375 gm In Sodium Chloride 0.9% 100 ml @ 25 mls/hr IVPB Q8H [facility] Rx#: [id number] Sodium Chloride 0.9% 1, 1050 000 ml @ 75 mls/hr IV . [id number] [facility] Rx#:[id number] Oral 480 1620 240 Output: Urine 750 Other: # Voids 4 # Bowel Movements 1 - Exam General: [non toxic], [no distress], [appears at stated age] Derm: [warm], [dry] Head: [atraumatic], [normocephalic], [symmetric] Eyes: [EOMI], [no lid lag], [anicteric sclera] Mouth: [no lip lesion], [mucus membranes moist] Cardiovascular: [S1S2 reg], [no murmur], [positive DP pulse bilateral], Lungs: [CTA bilateral], [no rhonchi, no rales] , [no accessory muscle use] Abdominal: [distended, improved from yesterday], [tenderness to palpation over the laparoscopic scars without rebound], [positive bowel sounds], [no appreciable organomegaly], [surgical scar is clean dry intact] Ext: [no gross muscle atrophy], [no edema], [no contractures] Neuro: [no focal neuro deficits] Psych: [Alert], [oriented], [appropriate affect] - Labs CBC & Chem 7: 08/09/18 08:01 08/09/18 08:01 Labs: Microbiology - Last 24 Hours (Table) 08/08/18 21:18 Blood Culture - Preliminary Blood No Growth after 72 hours Assessment and Plan Assessment: Assessment and Plan Abdominal distention Lactic acidosis Hyponatremia Hypothyroidism Acute cholecystitis Resolved: Urinary retention Discussed with Dr. Rosenberg, abdominal distention is due to ileus. Plans: Continue to monitor. Has follow-up with Dr. Sparks in 2 weeks. Lactic acid 2.4-1.1. Likely secondary to dehydration. Plans: Continue normal saline at 75 mL per hour. Resolved. Sodium 132-133. Likely secondary to dehydration. Plans: Continue IVF as above. Plans: Continue Synthroid As seen on CT abdomen and pelvis. Patient is afebrile with no leukocytosis. Blood cultures negative at 72 hours. Plans: Management as per general surgery. Continue Zosyn for antibiotic management of cholecystitis. Pain management with Tylenol or [place] as needed. Zofran as needed for nausea and vomiting. Follow blood cultures. Thank you for involving us in the care of this patient. Patient is medical cleared for discharge today. Discharge planning as per general surgery recommendations.
--- NOTE | 2018-08-12 10:42 | P.DS ---
Providers Date of admission: 08/08/18 21:19 Expected date of discharge: 08/12/18 Attending physician: Ulises Rosenberg Consults: 08/08/18 21:18 Consult Physician Routine Consulting Provider: Maggi Soto Consult Reason/Comments: Medical management Do you want consulting provider notified?: Yes Primary care physician: Jn Morris Hospital Course: This is an 79-year-old female who was admitted to the hospital with acute cholecystitis. Patient underwent laparoscopic cholecystectomy. Please see chart for details. Patient Condition at Discharge: Stable Plan - Discharge Summary Discharge Rx Participant: No New Discharge Prescriptions: No Action Levothyroxine Sodium [Synthroid] 50 mcg PO DAILY Discharge Medication List Levothyroxine Sodium [Synthroid] 50 mcg PO DAILY 11/20/16 [History] Follow up Appointment(s)/Referral(s): Jn Morris MD [Primary Care Provider] - 1-2 days Ulises Rosenberg MD [STAFF PHYSICIAN] - 1 Week Discharge Disposition: HOME SELF-CARE
--- NOTE | 2018-09-05 13:30 | P.OP ---
Date of Procedure: 08/09/18 Preoperative Diagnosis: Acute cholecystitis Postoperative Diagnosis: Acute gangrenous cholecystitis Procedure(s) Performed: Laparoscopic cholecystectomy Anesthesia: CHON Surgeon: Ulises Rosenberg Estimated Blood Loss (ml): 10 Pathology: other (Gallbladder) Condition: stable Disposition: PACU Description of Procedure: The patient was placed on the operating table. The patient received a general endotracheal tube anesthesia. The patients abdomen was prepped and draped in the usual sterile fashion. Through an infraumbilical stab incision, the fascia of the anterior abdominal wall was grasped with a pair of Kochers and then the Veress needle was placed in the peritoneal cavity. Position of the Veress needle was confirmed with positive drop test. The abdomen was then insufflated. After adequate insufflation, the 10 mm trocar was placed in the peritoneal cavity. Following this the laparoscope was placed in the peritoneal cavity. The patient was placed in the head-up, right side up position and then a 5 mm trocar was placed in the right lateral and right subcostal position under direct visualization. A 8 mm trocar was placed in the epigastric position. The gallbladder appeared to have patchy necrosis. The gallbladder was grasped in the fundus and infundibulum. Traction on the gallbladder was placed in the lateral and the cephalad positions. The triangle of Calot was visualized.. The cystic duct was bluntly dissected until the union of the cystic duct and common bile duct was seen. A critical view of safety was achieved. The cystic duct was then divided and sealed with the Harmonic scissors. A PDS Endoloop was then placed throughout the cystic duct stump. The cystic artery divided and sealed with the Harmonic scissors. The gallbladder was then removed from the liver bed using Harmonic scissors. The gallbladder was then extracted through the epigastric port site. Operative field was checked for any bleeding spots and Harmonic scissors was used to coagulate the liver bed. The abdomen was irrigated. The trocars were removed. The skin was closed using interrupted 3-0 Vicryl suture. Dermabond dressing were applied. The patient tolerated the procedure well.
== END 2018-08-12 11:35 | disposition home or self-care (01) | DRG 418 ==
LOC: EC 18:06 → 4SSUR 21:19
PROVIDERS: ADMIT Surgery; ATTEND Surgery
PROC: 0FT44ZZ Resection of Gallbladder, Percutaneous Endoscopic Approach (ICD-10-PCS; principal; 2018-08-09 09:00)
DX: K81.0 Acute cholecystitis (principal); E87.2 Acidosis; E87.1 Hypo-osmolality and hyponatremia; K82.A1 Gangrene of gallbladder in cholecystitis; E86.0 Dehydration; Z66 Do not resuscitate; R33.9 Retention of urine, unspecified; K59.00 Constipation, unspecified; E03.9 Hypothyroidism, unspecified; Z98.890 Other specified postprocedural states; Z79.890 Hormone replacement therapy; Z96.641 Presence of right artificial hip joint; Z83.49 Family history of other endocrine, nutritional and metabolic diseases
CPT/HCPCS: 36415; 74018; 74177; 80053; 81001; 82150; 83605; 83690; 85025; 85027; 85610; 85730; 87040; 88304; 96361; 96365; 96375; 99285

== ENCOUNTER 2018-10-05 21:58 | Observation (INO) | payer MEDICARE ==
[2018-10-05 23:14] LABS: ALT 20 U/L (9-52); AST 38 U/L (14-36); African American GFR (CKD) >90 (>60 ml/min/1.73 sqM); Alkaline Phosphatase 149 U/L (38-126); Anion Gap 9 mmol/L; Blood Urea Nitrogen 28 mg/dL (7-17); Calcium 9.1 mg/dL (8.4-10.2); Carbon Dioxide 24 mmol/L (22-30); Chloride 101 mmol/L (98-107); Glucose 109 mg/dL (74-99); Potassium 4.6 mmol/L (3.5-5.1); Sodium 134 mmol/L (137-145); Total Bilirubin 0.3 mg/dL (0.2-1.3); Total Protein 6.7 g/dL (6.3-8.2)
[2018-10-05 23:19] LABS: Basophils % (A) 0 %; Eosinophils # (A) 0.1 k/uL (0-0.7); Eosinophils % (A) 2 %; HCT 34.3 % (34.0-46.0); HGB 11.5 gm/dL (11.4-16.0); Lymphocytes # (A) 1.5 k/uL (1.0-4.8); Lymphocytes % (A) 25 %; MCH 32.6 pg (25.0-35.0); MCHC 33.6 g/dL (31.0-37.0); Monocytes # (A) 0.4 k/uL (0-1.0); Monocytes % (A) 6 %; Neutrophils # (A) 3.9 k/uL (1.3-7.7); Neutrophils % (A) 65 %; Platelet Count 316 k/uL (150-450); RBC 3.53 m/uL (3.80-5.40); RDW 15.7 % (11.5-15.5)
--- NOTE | 2018-10-05 23:31 | XR ---
EXAM: XR Chest, 2 Views CLINICAL HISTORY: ITS.REASON XR Reason: Pain TECHNIQUE: Frontal and lateral views of the chest. COMPARISON: No relevant prior studies available. FINDINGS: Lungs: Unremarkable. No consolidation. Pleural space: Unremarkable. No pneumothorax. Heart: No suspicious enlargement. Mediastinum: Unremarkable. Bones/joints: No acute fracture. IMPRESSION: No acute findings.
--- NOTE | 2018-10-05 23:38 | CT ---
EXAM: CT Head Without Intravenous Contrast CLINICAL HISTORY: ITS.REASON CT Reason: syncope TECHNIQUE: Axial computed tomography images of the head/brain without intravenous contrast. This CT exam was performed using one or more of the following dose reduction techniques: automated exposure control, adjustment of the mA and/or kV according to patient size, and/or use of iterative reconstruction technique. COMPARISON: 03/10 FINDINGS: Brain: No hemorrhage. No edema. Ventricles: Unremarkable. No ventriculomegaly. Bones/joints: No acute fracture. Soft tissues: Unremarkable. Sinuses: No fluid levels. Mastoid air cells: Unremarkable as visualized. No mastoid effusion. Other findings: Stable right frontal cavernoma IMPRESSION: No acute findings. EXAM: CT Cervical Spine Without Intravenous Contrast CLINICAL HISTORY: ITS.REASON CT Reason: syncope TECHNIQUE: Axial computed tomography images of the cervical spine without intravenous contrast. This CT exam was performed using one or more of the following dose reduction techniques: automated exposure control, adjustment of the mA and/or kV according to patient size, and/or use of iterative reconstruction technique. COMPARISON: No relevant prior studies available. FINDINGS: Vertebrae: No acute fracture. Discs/spinal canal/neural foramina: No suspicious findings. Soft tissues: Unremarkable. IMPRESSION: No acute findings.
[2018-10-06 00:03] LABS: Appearance,Urine Clear (Clear); Bilirubin,Urine Negative (Negative); Blood,Urine Negative (Negative); Color,Urine Yellow; Glucose,Urine (UA) Negative (Negative); Ketones,Urine Trace (Negative); Leukocyte Esterase,Urine Moderate (Negative); Mucus,Urine Rare /hpf; Nitrite,Urine Negative (Negative); Protein,Urine Trace (Negative); RBC,Urine 5 /hpf (0-5); Specific Gravity,Urine 1.028 (1.001-1.035); Squamous Epithelial Cell,Urine 4 /hpf (0-4); Urobilinogen,Urine <2.0 mg/dL (<2.0); WBC,Urine 10 /hpf (0-5)
--- NOTE | 2018-10-06 01:24 | ED ---
Fall HPI - General Chief Complaint: Fall Stated Complaint: Fall, arm laceration Time Seen by Provider: 10/05/18 22:17 Source: patient Mode of arrival: ambulatory - History of Present Illness Initial Comments: Yoli is a pleasant 87-year-old female who presents to the emergency department today for evaluation of multiple falls and right arm injury. Patient reports that over the past couple of days she has had 3 falls, she reports that she will suddenly feel weak and fall to the ground. Patient denies loss of consciousness chest pain or palpitations with these events. She reports that they occur unprovoked. Patient reports that this evening she fell and struck her right arm, she was wearing 2 bracelets which resulted in lacerations around her wrist. reports that she is relatively healthy, takes only one medication, she used exercises daily but hasn't recently. Patient also notes that in the morning when she wakes up she feels very lightheaded and this persists for approximately 2 hours. - Related Data Home Medications Medication Instructions Recorded Confirmed Levothyroxine Sodium [Synthroid] 50 mcg PO DAILY 11/20/16 10/05/18 Allergies Allergy/AdvReac Type Severity Reaction Status Date / Time No Known Allergies Allergy Verified 10/05/18 22:21 Review of Systems ROS Statement: Those systems with pertinent positive or pertinent negative responses have been documented in the HPI. ROS Other: All systems not noted in ROS Statement are negative. Past Medical History Past Medical History: Thyroid Disorder History of Any Multi-Drug Resistant Organisms: None Reported Past Surgical History: Cholecystectomy, Orthopedic Surgery Additional Past Surgical History / Comment(s): right elbow surgery BACK SURGERY 1999, April 2018 R Hip Replacement Past Psychological History: No Psychological Hx Reported Smoking Status: Never smoker Past Alcohol Use History: None Reported Past Drug Use History: None Reported - Past Family History Mother Family Medical History: Hyperlipidemia General Exam - General Exam Comments Initial Comments: Physical Exam GENERAL: Patient is well-developed and well-nourished. Patient is nontoxic and well-hydrated and is in no distress. HENT: Normocephalic, Atraumatic. EYES: PERRL, EOMI PULMONARY: Unlabored respirations. No audible rales rhonchi or wheezing was noted. CARDIOVASCULAR: There is a regular rate and rhythm without any murmurs gallops or rubs. ABDOMEN: Soft and nontender with normal bowel sounds. SKIN: Skin is clear with no lesions or rashes and otherwise unremarkable. : Deferred NEUROLOGIC: Patient is alert and oriented x3. Moving all extremities spontaneously MUSCULOSKELETAL: Normal extremities with adequate strength and full range of motion. No lower extremity swelling or edema. No calf tenderness. PSYCHIATRIC: Normal psychiatric evaluation Limitations: no limitations Course Vital Signs 10/05/18 22:10 Temperature 97.7 F Pulse Rate 74 Respiratory 18 Rate Blood Pressure 135/67 O2 Sat by Pulse 98 Oximetry Medical Decision Making - Medical Decision Making The patient was seen and evaluated, history is obtained from the patient and family member at bedside This is a pleasant elderly female who has recently had recurrent falls as well as lightheadedness This evening the patient had a fall she did not lose consciousness she did strike her right arm she does have multiple skin tears EKG was obtained due to multiple falls in the elderly person, EKG was obtained at 2301, rate is 96 there are P waves but they're not P waves before each QRS complex, this appears to be a junctional rhythm, there are no acute ST elevations or depressions and no evidence of acute ischemia or infarction. CBC CMP unremarkable Skin tears were repaired with Steri-Strips Given that this is an elderly female with recurrent falls and a new finding of junctional rhythm on EKG I do feel she warrants further observation, cardiac monitoring, evaluation by cardiology as well as physical therapy to make sure she is safe to be discharged home. Patient was initially resistant to the plan for standing as she does have a scheduled hair appointment for tomorrow morning but was encouraged by her family and finally agreeable. Patient care was discussed with admitting physician Dr. Soto who accepts the admission - Lab Data Result diagrams: 10/05/18 22:50 10/05/18 22:50 Lab Results 10/05/18 10/05/18 10/05/18 Range/Units 22:50 22:50 23:44 WBC 6.0 (3.8-10.6) k/uL RBC 3.53 L (3.80-5.40) m/uL Hgb 11.5 (11.4-16.0) gm/dL Hct 34.3 (34.0-46.0) % MCV 97.0 (80.0-100.0) fL MCH 32.6 (25.0-35.0) pg MCHC 33.6 (31.0-37.0) g/dL RDW 15.7 H (11.5-15.5) % Plt Count 316 (150-450) k/uL Neutrophils % 65 % Lymphocytes % 25 % Monocytes % 6 % Eosinophils % 2 % Basophils % 0 % Neutrophils # 3.9 (1.3-7.7) k/uL Lymphocytes # 1.5 (1.0-4.8) k/uL Monocytes # 0.4 (0-1.0) k/uL Eosinophils # 0.1 (0-0.7) k/uL Basophils # 0.0 (0-0.2) k/uL Sodium 134 L (137-145) mmol/L Potassium 4.6 (3.5-5.1) mmol/L Chloride 101 (98-107) mmol/L Carbon Dioxide 24 (22-30) mmol/L Anion Gap 9 mmol/L BUN 28 H (7-17) mg/dL Creatinine 0.69 (0.52-1.04) mg/dL Est GFR (CKD-EPI)AfAm >90 (>60 ml/min/1.73 sqM) Est GFR (CKD-EPI)NonAf 78 (>60 ml/min/1.73 sqM) Glucose 109 H (74-99) mg/dL Calcium 9.1 (8.4-10.2) mg/dL Total Bilirubin 0.3 (0.2-1.3) mg/dL AST 38 H (14-36) U/L ALT 20 (9-52) U/L Alkaline Phosphatase 149 H (38-126) U/L Total Protein 6.7 (6.3-8.2) g/dL Albumin 4.0 (3.5-5.0) g/dL Urine Color Yellow Urine Appearance Clear (Clear) Urine pH 6.0 (5.0-8.0) Ur Specific [place] 1.028 (1.001-1.035) Urine Protein Trace H (Negative) Urine Glucose (UA) Negative (Negative) Urine Ketones Trace H (Negative) Urine Blood Negative (Negative) Urine Nitrite Negative (Negative) Urine Bilirubin Negative (Negative) Urine Urobilinogen <2.0 (<2.0) mg/dL Ur Leukocyte Esterase Moderate H (Negative) Urine RBC 5 (0-5) /hpf Urine WBC 10 H (0-5) /hpf Ur Squamous Epith Cells 4 (0-4) /hpf Urine Mucus Rare H (None) /hpf Disposition Clinical Impression: Fall, Accelerated junctional rhythm Disposition: ADMITTED IP TO THIS HOSP Condition: Stable Referrals: Jn Morris MD [Primary Care Provider] - 1-2 days
[2018-10-06] MEDS ORDERED: NALOXONE 0.4 MG/ML 1 ML VIAL IV PRN (01:30)
--- NOTE | 2018-10-06 01:52 | P.HPIM ---
History of Present Illness H&P Date: 10/06/18 Patient is an 87-year-old female with a PMH of hypothyroidism, recent cholecystectomy who presented to the ED with a complaint of multiple falls (total of 3) at home over the last one month. Patient reports that the falls occurred suddenly, with no obvious prodrome. She stated that the most recent fall was earlier today when she was walking from one room to the next using her walker when she suddenly felt that she was falling. She denied losing consciousness during any of the episodes. She denied chest pain, palpitations, or shortness of breath preceding the episode. She also denied any headaches, weakness, numbness, tingling, or urinary complaints. She denied losing control of her urine or bowels. The patient lives by herself and has been using a walker since her hip fracture several years ago. She considers himself to be fairly healthy and independent in all her ADLs. The patient underwent an extensive evaluation in the ED with chest x-ray with no acute abnormalities and a head/cervical spine CT which was unremarkable. Laboratory evaluation revealed a WBC count of 6, hemoglobin 11.5, platelets 316, BUN 28, and creatinine 0.69. The patient's EKG revealed an accelerated junctional rhythm at 96 bpm. she is being admitted to the medicine service for further evaluation by cardiology. Review of Systems Pertinent positives and negatives as discussed in HPI, a complete review of systems was performed and all other systems are negative. Past Medical History Past Medical History: Thyroid Disorder History of Any Multi-Drug Resistant Organisms: None Reported Past Surgical History: Cholecystectomy, Orthopedic Surgery Additional Past Surgical History / Comment(s): right elbow surgery BACK SURGERY 1999, April 2018 R Hip Replacement Past Psychological History: No Psychological Hx Reported Smoking Status: Never smoker Past Alcohol Use History: None Reported Past Drug Use History: None Reported - Past Family History Mother Family Medical History: Hyperlipidemia Medications and Allergies Home Medications Medication Instructions Recorded Confirmed Type Levothyroxine Sodium [Synthroid] 50 mcg PO DAILY 11/20/16 10/05/18 History Allergies Allergy/AdvReac Type Severity Reaction Status Date / Time No Known Allergies Allergy Verified 10/05/18 22:21 Physical Exam Vitals: Vital Signs Temp Pulse Resp BP Pulse Ox 10/05/18 22:10 97.7 F 74 18 135/67 98 Intake and Output 10/05/18 10/05/18 10/06/18 14:59 22:59 06:59 Other: Weight 52.163 kg General: non toxic, no distress, appears at stated age, normal weight Derm: no unusual rashes/lesions no unusual ecchymoses, warm, dry Head: atraumatic, normocephalic, symmetric Eyes: EOMI, no lid lag, anicteric sclera, pupils equal round reactive to light ENT: Nose and ears atraumatic, no thrush, no pharyngeal erythema Neck: No thyromegaly, no cervical lymphadenopathy, trachea midline, supple Mouth: no lip lesion, mucus membranes moist Cardiovascular: S1S2 reg, no murmur, positive posterior tibial pulse bilateral, no edema, capillary refill less than 2 seconds Lungs: CTA bilateral, no rhonchi, no rales , no accessory muscle use Abdominal: soft, nontender to palpation, no guarding, no appreciable organomegaly, normal bowel sounds Ext: no gross muscle atrophy, muscle strength 5 out of 5 in all 4 extremities grossly, no contractures, Neuro: CN II-XI grossly intact, light touch intact all 4 extremities, finger to nose within normal limits, Psych: Alert, oriented, appropriate affect Results CBC & Chem 7: 10/05/18 22:50 10/05/18 22:50 Labs: Abnormal Lab Results - Last 24 Hours (Table) 10/05/18 10/05/18 10/05/18 Range/Units 22:50 22:50 23:44 RBC 3.53 L (3.80-5.40) m/uL RDW 15.7 H (11.5-15.5) % Sodium 134 L (137-145) mmol/L BUN 28 H (7-17) mg/dL Glucose 109 H (74-99) mg/dL AST 38 H (14-36) U/L Alkaline Phosphatase 149 H (38-126) U/L Urine Protein Trace H (Negative) Urine Ketones Trace H (Negative) Ur Leukocyte Esterase Moderate H (Negative) Urine WBC 10 H (0-5) /hpf Urine Mucus Rare H (None) /hpf Assessment and Plan Plan: Multiple falls, w/ abnormal EKG -Obtain orthostatics -PT/OT consult -Cardiac monitoring -Cardiology consulted Hypothyroidism -Continue with home meds DVT prophylaxis -Heparin The patient is admitted with an anticipated less than 2 midnight stay for evaluation of falls. CODE STATUS:Full Code Discussed with: Patient Anticipated discharge date: 10/07/[address]: Home A total of 30 minutes was spent on the care of this complex patient more than 50% of the time was spent in counseling and care coordination.
[2018-10-06 02:27] VITALS: BMI 20.2
[2018-10-06] MEDS ORDERED: LEVOTHYROXINE 50 MCG TAB PO SCH (06:30)
--- NOTE | 2018-10-06 10:22 | P.CRDCN ---
History of Present Illness Consult date: 10/06/18 Chief complaint: Falls History of present illness: This is a pleasant 87-year-old female patient with a past medical history significant for thyroid disorder without any other comorbidities like coronary artery disease or congestive heart failure or cardiac arrhythmia or diabetes or hypertension presented to the emergency room complaining of multiple falls. For the last few weeks, the patient did fall 3 times. She stated that she never lost her consciousness. No symptoms of chest pain or chest discomfort around the episode, dizziness or lightheadedness, or feeling of heart racing or fluttering, or feeling warm. No evidence of losing control of the bladder or the bowel. The patient lives by herself. She presented to the emergency room. The EKG showed what it seems to be sinus rhythm with evidence of first-degree AV block. Differential diagnosis of the EKG include junctional rhythm. The patient was not on any AV levi naty agents at home. No history of cardiac arrhythmia. Noted. The chest x-ray did not show any acute abnormalities. The computed tomography scan of the brain came in to be unremarkable. The rest of her blood work came in to be unremarkable as well. The patient did have one set of troponin came in to be unremarkable. She had no symptoms of chest pain or chest discomfort. Past Medical History Past Medical History: Thyroid Disorder History of Any Multi-Drug Resistant Organisms: None Reported Past Surgical History: Cholecystectomy, Orthopedic Surgery Additional Past Surgical History / Comment(s): right elbow surgery BACK SURGERY 1999, April 2018 R Hip Replacement Past Anesthesia/Blood Transfusion Reactions: No Reported Reaction Past Psychological History: No Psychological Hx Reported Smoking Status: Never smoker Past Alcohol Use History: None Reported Past Drug Use History: None Reported - Past Family History Mother Family Medical History: Hyperlipidemia Medications and Allergies Home Medications Medication Instructions Recorded Confirmed Type Levothyroxine Sodium [Synthroid] 50 mcg PO DAILY 11/20/16 10/05/18 History Allergies Allergy/AdvReac Type Severity Reaction Status Date / Time No Known Allergies Allergy Verified 10/05/18 22:21 Physical Exam Vitals: Vital Signs Temp Pulse Pulse Pulse Pulse Resp BP 10/06/18 02:18 97.8 F 65 16 10/06/18 01:52 64 68 62 10/05/18 22:10 97.7 F 74 18 135/67 BP BP BP Pulse Ox 10/06/18 02:18 172/81 98 10/06/18 01:52 159/89 160/87 153/94 10/05/18 22:10 98 Intake and Output 10/05/18 10/06/18 10/06/18 22:59 06:59 14:59 Other: # Voids 5 1 Weight 52.163 kg - Constitutional General appearance: no acute distress - Respiratory Respiratory: bilateral: CTA - Cardiovascular Rhythm: regular Heart sounds: normal: S1, S2 Results 10/05/18 22:50 10/05/18 22:50 Cardiac Enzymes 10/05/18 10/05/18 Range/Units 22:50 22:50 AST 38 H (14-36) U/L Troponin I <0.012 (0.000-0.034) ng/mL CBC 10/05/18 Range/Units 22:50 WBC 6.0 (3.8-10.6) k/uL RBC 3.53 L (3.80-5.40) m/uL Hgb 11.5 (11.4-16.0) gm/dL Hct 34.3 (34.0-46.0) % Plt Count 316 (150-450) k/uL Comprehensive Metabolic Panel 10/05/18 Range/Units 22:50 Sodium 134 L (137-145) mmol/L Potassium 4.6 (3.5-5.1) mmol/L Chloride 101 (98-107) mmol/L Carbon Dioxide 24 (22-30) mmol/L BUN 28 H (7-17) mg/dL Creatinine 0.69 (0.52-1.04) mg/dL Glucose 109 H (74-99) mg/dL Calcium 9.1 (8.4-10.2) mg/dL AST 38 H (14-36) U/L ALT 20 (9-52) U/L Alkaline Phosphatase 149 H (38-126) U/L Total Protein 6.7 (6.3-8.2) g/dL Albumin 4.0 (3.5-5.0) g/dL Current Medications Generic Name Dose Route Start Last Admin Trade Name Freq PRN Reason Stop Dose Admin Levothyroxine Sodium 50 mcg 10/06/18 06:30 10/06/18 05:52 Synthroid PO 50 mcg DAILY@0630 MAURICIO Administration Naloxone HCl 0.2 mg 10/06/18 01:30 Narcan IV Q2M PRN Opioid Reversal Intake and Output 10/05/18 10/06/18 10/06/18 22:59 06:59 14:59 Other: # Voids 5 1 Weight 52.163 kg 10/05/18 22:50 10/05/18 22:50 Assessment and Plan Assessment: Assessment #1 frequent falls of unknown etiology #2 thyroid disorder Plan #1 rule out acute coronary event. We'll obtain one more set of cardiac enzyme. #2 if acute coronary syndrome ruled out, the patient can be discharged home. #3 I did recommend the patient to have an event monitor for 3 weeks to rule out any cardiac arrhythmia #4 obtain an echocardiogram, probably as an outpatient she is going to be discharged today #5 follow-up with the patient Thank you for allowing us participate in her care
[2018-10-06 12:26] VITALS: PULSE 63; TEMP 98.2
[2018-10-06 12:29] VITALS: BP 115/56; RESP 14
--- NOTE | 2018-10-06 12:47 | P.DS ---
Providers Date of admission: 10/06/18 01:31 Expected date of discharge: 10/06/18 Attending physician: Maggi Soto MD Consults: 10/06/18 01:30 Consult Physician Urgent Consulting Provider: [facility] Consult Reason/Comments: new arrhythmia Do you want consulting provider notified?: Yes, Notify in am Primary care physician: Jn Morris Hospital Course: Discharge Diagnosis: Laceration right wrist and elbow Mechanical fall Recurrent falls Hypothyroidism Hospital Course: Patient is an 87-year-old female with a past medical history of hypothyroidism who presented to the emergency department after a fall. She initially came in because her right wrist laceration would not stop bleeding. She had Steri-Strips placed in the ER with improvement. In the ER she underwent an extensive evaluation. There was concern that she had a junctional escape rhythm on her EKG. Initial troponin was negative. Blood work was unremarkable. CT head-no acute findings. CT cervical spine-no acute findings. Chest x-ray was negative. She was admitted for further monitoring with conservative accelerated junctional rhythm. Second troponin remained negative. She was seen by cardiology who recommended outpatient Holter monitor and echocardiogram. Laceration to her right wrist had stopped bleeding. She was concerned about being able to address this on her own. She was seen by physical and occupational therapy and was able to walk around the hallways without any difficulty. Her right wrist dressing was changed to a Tegaderm that she leave in place for several days. She is determined stable for discharge. She'll follow up with Dr. Rebolledo in the office for an outpatient Holter monitor and ech ocardiogram. She'll follow-up with Dr. Morris in 1-2 days. She was offered home health but declined at this point in time. Patient seen and examined at bedside. No chest pain, shortness of breath, nausea, vomiting, headache, lightheadedness, or dizziness. Has chronic dizziness upon standing that resolves when she stands still for a few minutes. Feeling well and asking to go home. Vital signs reviewed and stable. General: non toxic, no distress, appears at stated age Derm: Steri-Strips in place over 2 lacerations on right wrist as well as some lacerations on right elbow, warm, dry Head: atraumatic, normocephalic, symmetric Eyes: EOMI, no lid lag, anicteric sclera Mouth: no lip lesion, mucus membranes moist Cardiovascular: S1S2 reg, no murmur, positive posterior tibial pulse bilateral, Lungs: CTA bilateral, no rhonchi, no rales , no accessory muscle use Abdominal: soft, nontender to palpation, no guarding, no appreciable organomegaly Ext: no gross muscle atrophy, no edema, no contractures Neuro: CN II-XI grossly intact, no focal neuro deficits Psych: Alert, oriented, appropriate affect A total of 35 minutes of time were spent preparing this complex discharge summary . Pertinent Studies: CT head-no acute findings. CT cervical spine-no acute findings. CXR- No acute process Patient Condition at Discharge: Stable Plan - Discharge Summary Discharge Rx Participant: Yes New Discharge Prescriptions: Continue Levothyroxine Sodium [Synthroid] 50 mcg PO DAILY Discharge Medication List Levothyroxine Sodium [Synthroid] 50 mcg PO DAILY 11/20/16 [History] Follow up Appointment(s)/Referral(s): Jn Morris MD [Primary Care Provider] - 1-2 days Pernell Rebolledo MD [STAFF PHYSICIAN] - 2 Weeks
== END 2018-10-06 14:51 | disposition home or self-care (01) ==
LOC: EC 21:58 → 3SCARD 10-06 01:31
PROVIDERS: ADMIT Internal Medicine; ATTEND Internal Medicine
DX: R94.31 Abnormal electrocardiogram [ECG] [EKG] (principal); S61.511A Laceration without foreign body of right wrist, initial encounter; S51.011A Laceration without foreign body of right elbow, initial encounter; R29.6 Repeated falls; E03.9 Hypothyroidism, unspecified; W19.XXXA Unspecified fall, initial encounter; Z91.81 History of falling; Y92.009 Unspecified place in unspecified non-institutional (private) residence as the place of occurrence of the external cause; Z96.641 Presence of right artificial hip joint; Z79.890 Hormone replacement therapy
CPT/HCPCS: 99285; 36415; 93005; 97162; 80053; 84484; 85025; 81001; 71046; 72125; 70450; G0378

== ENCOUNTER 2018-11-28 13:01 | Day surgery (SDC) | payer MEDICARE ==
[2018-11-23 14:53] VITALS: BMI 19.9
--- NOTE | 2018-11-27 16:14 | HP ---
HISTORY AND PHYSICAL CHIEF COMPLAINT: Left hip pain. HISTORY OF PRESENT ILLNESS: The patient is an 87-year-old female who underwent open reduction and internal fixation of a left intertrochanteric femur fracture on 03/16/2017 with recent increasing pain. She notes she is having pain getting up from a seated position and with walking. She does use a cane. PAST MEDICAL HISTORY: Her past medical history is significant for: 1. Arthritis. 2. Cardiac arrhythmia. 3. Hypothyroidism. PAST SURGICAL HISTORY: Past surgical history is significant for fixation of a left intertrochanteric femur fracture. CURRENT MEDICATIONS: 1. Diclofenac. 2. Levothyroxine. ALLERGIES: SHE DENIES DRUG ALLERGIES. FAMILY HISTORY: Noncontributory. SOCIAL HISTORY: Negative for current tobacco or alcohol use. REVIEW OF SYSTEMS: Sixteen-point review of systems otherwise reviewed and is noncontributory. PHYSICAL EXAMINATION: The patient is approximately 5 feet 4 inches, 120 pounds of ectomorphic habitus. HEENT exam is nonfocal. Neck is supple. Passive motion of the left hip: Flexion 80 degrees, external rotation with hip flexed 30 degrees, internal rotation 10 degrees with pain. Previous lateral incisions are healed. Abduction strength is 4/5. Her distal neurovascular exam appears intact in the left lower extremity. IMAGING: Previous AP of the pelvis obtained in the office shows previous open reduction and internal fixation of her left intertrochanteric femur fracture with varus alignment of the femoral neck along with superior cutout of the compression screw. IMPRESSION: Status post open reduction internal fixation, left intertrochanteric femur fracture, with hardware cutout. RECOMMENDATIONS: I talked to the patient at length regarding her condition along with treatment options. At this point she notes she is symptomatic and opts to proceed with revision of the hardware. We will likely try to back the compression screw out without removal of the hardware. Risks and benefits were discussed at length in layman's terms. She underwent preoperative medical evaluation by Dr. Morris. MMMISSYL / SUKHJINDERN: [id number] /
[~2018-11-28 13:01] MED LIST: ACETAMINOPHEN TAB 500 MG TAB PO ONE; DEXAMETHASONE SOD PHOSPHATE 10 MG/ML 1 ML VIAL IV ONE; MELOXICAM 7.5 MG TAB PO ONE; MIDAZOLAM 2 MG/2 ML VIAL IV PRN; ONDANSETRON 4 MG/2 ML VIAL IVP ONE; TRANEXAMIC ACID 1,000 MG in SODIUM CHLORIDE 0.9% 100 ML IVPB ONE
[2018-11-28] MEDS: LACTATED RINGERS 1,000 ML IV SCH (13:31)
[2018-11-28] MEDS ORDERED: LIDOCAINE 1% 20 ML VIAL (10MG/ML) FOR IV START INTRADERMA ONE (13:42)
[2018-11-28] MEDS ORDERED: PROPOFOL 10 MG/ML 20 ML VIAL IV ONE (15:15)
[2018-11-28] MEDS ORDERED: LIDOCAINE 1% INJ 10MG/ML (20 ML MDV) ONE (15:15)
[2018-11-28] MEDS ORDERED: fentaNYL (PF) 50 MCG/ML 2 ML AMP ONE (15:15)
[2018-11-28] MEDS ORDERED: SUCCINYLCHOLINE CHLORIDE 100 MG/5 ML SYR IV ONE (15:15)
[2018-11-28] MEDS ORDERED: MIDAZOLAM 2 MG/2 ML VIAL ONE (15:15)
[2018-11-28] MEDS: TRANEXAMIC ACID 1,000 MG in SODIUM CHLORIDE 0.9% 100 ML IVPB ONE ×2 (15:55→20:43)
[2018-11-28] MEDS ORDERED: LACTATED RINGERS 1,000 ML IV ONE (16:22)
[2018-11-28] MEDS ORDERED: NALOXONE 0.4 MG/ML 1 ML VIAL IV PRN (16:27)
[2018-11-28] MEDS ORDERED: ONDANSETRON 4 MG/2 ML VIAL IVP PRN (16:27)
--- NOTE | 2018-11-28 16:29 | P.OP ---
Date of Procedure: 11/28/18 Preoperative Diagnosis: Status post open reduction and internal fixation left intertrochanteric femur fracture with irritating hardware/cut out Postoperative Diagnosis: Same Procedure(s) Performed: Revision fixation left intertrochanteric femur fracture Anesthesia: CHON Surgeon: Wellington Plascencia Heel Coverer Machine Operator #1: Hunter Hu Estimated Blood Loss (ml): 5 Pathology: none sent Condition: stable Disposition: PACU Indications for Procedure: The patient's an 87-year-old female who underwent open reduction and internal fixation of a comminuted left intertrochanteric femur fracture proximal year and half ago who presented with left hip irritation secondary to hardware cut out through the femoral head. A discussion of the risks and benefits of operative intervention was made with patient. Operative options were discussed to include revision of the hardware versus removal and conversion to a total hip arthroplasty. She did not want to proceed with any more aggressive surgery. Specific risks of surgery to include refracture, hardware failure, and need for subsequent procedures was discussed. Informed consent was obtained. Operative Findings: As below Description of Procedure: The patient was brought to the operating room, and spinal anesthesia was attempted but unsuccessful. This was converted to a general anesthetic. She was then positioned supine on the fracture table. The left hip was then prepped and draped in normal fashion. A 2 cm incision was made along the distal aspect of the previous incision along the proximal femoral shaft. The skin was incised sharply. Subcutaneous tissues were divided sharply. The fascia olga lidia split in line with the skin incision. Blunt dissection was then made down to level of the set screw which was removed. The guidewire was placed in the compression screw and this was then backed out to the appropriate level with the aid of fluoroscopy. There was purchase of the compression screw. This was verified on the AP and lateral views. The fascia olga lidia was closed with 2-0 Vicryl interrupted sutures. The subcutaneous tissues reapproximated in a similar fashion. The skin was reapproximated with 3-0 interrupted nylon suture. The patient was awoken from general anesthesia and transferred to recovery room in fair condition. Blood loss was estimated at 5 mL. No complications were incurred. Sponge and needle counts were correct at the end of the case.
[2018-11-28] MEDS ORDERED: ACETAMINOPHEN TAB 325 MG TAB PO PRN (16:30)
--- NOTE | 2018-11-28 17:02 | XR ---
Limited left hip HISTORY: Left hip fracture 2 intraoperative C-arm images document the procedure.
[2018-11-28] MEDS: HYDROmorphone 0.5 MG/0.5 ML SYRINGE IVP PRN ×3 (17:03→18:36)
--- NOTE | 2018-11-28 17:03 | FL ---
Fluoroscopy HISTORY: Left hip fracture revision 32 seconds fluoroscopy time supplied to the referring clinician. 2 intraoperative C-arm images docum ent the procedure. See dictated report from orthopedic surgery.
[2018-11-29] MEDS: HYDROcodone/APAP 5-325MG 1 EACH TAB PO PRN ×2 (05:25→13:15)
[2018-11-29] MEDS: LACTATED RINGERS 1,000 ML IV SCH (06:00)
[2018-11-29 07:25] VITALS: BP 123/74; PULSE 69; RESP 16; TEMP 98
--- NOTE | 2018-11-29 12:05 | P.PN ---
Subjective Progress Note Date: 11/29/18 Principal diagnosis: Status post revision fixation left intertrochanteric femur fracture Patient evaluated at bedside, she is resting comfortably. She is ambulating well with therapy. Her pain is well-controlled. She denies any chest pain or shortness of breath. Objective - Vital Signs Vital signs: Vital Signs Temp 98.0 F 11/29/18 07:00 Pulse 69 11/29/18 07:00 Resp 16 11/29/18 07:00 BP 123/74 11/29/18 07:00 Pulse Ox 96 11/29/18 07:00 Intake & Output 11/28/18 11/29/18 11/29/18 18:59 06:59 18:59 Intake Total 1160 480 Output Total 5 Balance 1155 480 Weight 53 kg Intake: IV 1160 Oral 480 Output: Estimated Blood Loss 5 Other: Voiding Method Toilet Toilet # Voids 1 - Exam Left lower extremity: Incision is clean, dry and intact. Minimal soft tissue swelling present. Sensation to light touch throughout the extremities intact, dorsal pedis pulses 2+. Assessment and Plan Plan: Assessment: Postop day #1 status post revision fixation of left intertrochanteric femur fracture Plan: Discussed activity restrictions, recommend weight-bear with walker/cane at all times Patient has pain medication at home Wound care instructions discussed Plan for [facility]-up at [facility] 2 weeks Time with Patient: Less than 30
--- NOTE | 2018-11-29 12:12 | P.DS ---
Providers Date of admission: 11/28/2018 Expected date of discharge: 11/29/18 Attending physician: Wellington Plascencia Primary care physician: Jn Morris Hospital Course: Date of admission: 11/28/2018 Date of discharge: 11/29/2018 Admission diagnosis: Status post revision fixation left intertrochanteric femur fracture Discharge diagnosis: Same Attending physician: Dr. Plascencia Surgical procedures: Revision fixation left intertrochanteric femur fracture Brief history: Patient is a 87-year-old female with a history of a previous left intertrochanteric femur fracture and surgical intervention. Patient was evaluated in the outpatient setting with Dr. Plascencia due to irritation from the hardware. It was determined she would need surgical intervention, she was scheduled for surgery on 11/28/2018. Hospital course: Details of patient's surgery can be found in operative report. Patient tolerated the procedure well and was subsequently transported to orthopedic floor. Patient's orthopeidc and medical care was provided daily. Patient had daily laboratory tests performed for evaluation of overall blood counts. Patient had daily physical therapy to include strengthening range of motion as well as education with walker ambulation. Patient was noted to have a relatively uneventful postoperative course. Patient reported satisfactory pain control with oral pain medications by postoperative day 0. Patient showed satisfactory progress with physical therapy. Patient moved steadily through the program and had no difficulty meeting the goals by postoperative day 1. Given patient's otherwise satisfactory course and having met physical therapy goals, plan is to discharge patient home on postoperative day 1. Discharge condition/disposition: Patient will be discharged home in stable condition. Discharge medications: Instructions are given on resumption of patient's normal daily medications per primary care recommendation, in addition patient will be prescribed no new medication. Discharge instructions: 1. Wound care and infection precautions, keep incision dry and covered while showering, no lotions, creams, moisturizers. No soaking, tubs, pools, hottubs. Do not scrub over the incision. 2. Weight-bear as tolerated with walker / cane until follow-up. 3. Ice and elevate when necessary. Do not exceed 20 minutes per hour with ice pack. 4. Utilize compression sleeve until seen at first follow up appointment. 5. Visiting nursing care. 6. Home physical therapy 7. Pain meds and anticoagulants per prescription. 8. Pain medication has potential to cause constipation. Increase oral fluid and fiber intake. Contact primary care provider if you have not had a bowel movement within 48 hours after discharge 9. No anti-inflammatory medication until discussed at first post operative visit, this including Motrin, Aleve, Mobic, Diclofenac 10. Follow up in office at 2 weeks postop with David Hu PA-C 11. Follow up with your primary care doctor 7-10 days after discharge. 12. Contact [facility] with any questions, . Procedures: Revision fixation left intertrochanteric femur fracture Patient Condition at Discharge: Good Plan - Discharge Summary Discharge Rx Participant: No New Discharge Prescriptions: No Action Levothyroxine Sodium [Synthroid] 50 mcg PO DAILY Naproxen Sodium [Aleve] 220 mg PO DAILY PRN PRN Reason: Pain Discharge Medication List Levothyroxine Sodium [Synthroid] 50 mcg PO DAILY 11/20/16 [History] Naproxen Sodium [Aleve] 220 mg PO DAILY PRN 11/23/18 [History] Follow up Appointment(s)/Referral(s): [facility] Visiting Nurse, [NON-STAFF] - As Needed Hunter Hu PAC [PHYSICIAN SCALE SHOOTER] - 2 Weeks Activity/Diet/Wound Care/Special Instructions: Orthopedic discharge instructions: 1. Weight-bear as tolerated, utilize walker/cane 2. Plan for follow-up at [facility] in 2 weeks Discharge Disposition: HOME WITH HOME HEALTH SERVICES
== END 2018-11-29 16:05 | disposition home health service (06) ==
LOC: OR 13:01 → 4SSUR 16:22 → OR 11-29 16:05
PROVIDERS: ATTEND Orthopaedic Surgery
DX: T84.84XA Pain due to internal orthopedic prosthetic devices, implants and grafts, initial encounter (principal); Z87.81 Personal history of (healed) traumatic fracture; M19.90 Unspecified osteoarthritis, unspecified site; I49.9 Cardiac arrhythmia, unspecified; E03.9 Hypothyroidism, unspecified; Z79.890 Hormone replacement therapy; Z79.899 Other long term (current) drug therapy
CPT/HCPCS: 20680; 97161; 73501; J2250; J1100; J0690; J2405; J2001; J3010; J0330; J2704; J1170

== ENCOUNTER 2019-02-06 08:53 | Inpatient (IN) | payer MEDICARE ==
[2019-02-06] MEDS ORDERED: HYDROcodone/APAP 5-325MG 1 EACH TAB PO STA (09:15)
--- NOTE | 2019-02-06 09:21 | ED ---
Lower Extremity Injury HPI - General Chief Complaint: Extremity Injury, Lower Stated Complaint: lt sided hip pain Time Seen by Provider: 02/06/19 09:03 Source: patient, RN notes reviewed Mode of arrival: ambulatory Limitations: no limitations - History of Present Illness Initial Comments: this is an 88-year-old female presents emergency Department chief complaint left hip pain. She states she's had progressively worsening left hip pain since her surgery in November by Dr. Rubalcava. Patient states that she should have pain only with movement but states it fell is constant in her left hip she states that it is still exacerbated by movement. Patient called for an appointment yesterday she is scheduled see him tomorrow but states that she cannot tolerate the pain anymore. Patient denies any leg swelling, redness, fever, chills or any paresthesias of her left leg. Patient states that she did not take anything for the discomfort at this time. - Related Data Home Medications Medication Instructions Recorded Confirmed Levothyroxine Sodium [Synthroid] 50 mcg PO DAILY 11/20/16 11/28/18 Naproxen Sodium [Aleve] 220 mg PO DAILY PRN 11/23/18 11/23/18 Allergies Allergy/AdvReac Type Severity Reaction Status Date / Time No Known Allergies Allergy Verified 11/23/18 14:45 Review of Systems ROS Statement: Those systems with pertinent positive or pertinent negative responses have been documented in the HPI. ROS Other: All systems not noted in ROS Statement are negative. Past Medical History Past Medical History: Thyroid Disorder History of Any Multi-Drug Resistant Organisms: None Reported Past Surgical History: Cholecystectomy, Orthopedic Surgery Additional Past Surgical History / Comment(s): right elbow surgery BACK SURGERY 1999, April 2018 R Hip Replacement, MAR 2016 LEFT HIP surgery states had fall and then had screw placed. Past Anesthesia/Blood Transfusion Reactions: No Reported Reaction Past Psychological History: No Psychological Hx Reported Smoking Status: Former smoker Past Alcohol Use History: Occasional, Rare Past Drug Use History: None Reported - Past Family History Mother Family Medical History: Myocardial Infarction (CT) General Exam Limitations: no limitations General appearance: alert, in no apparent distress Head exam: Present: atraumatic, normocephalic, normal inspection Neck exam: Present: normal inspection, full ROM. Absent: tenderness, meningismus, lymphadenopathy Respiratory exam: Present: normal lung sounds bilaterally. Absent: respiratory distress, wheezes, rales, rhonchi, stridor Cardiovascular Exam: Present: regular rate, normal rhythm, normal heart sounds. Absent: systolic murmur, diastolic murmur, rubs, gallop, clicks Extremities exam: Present: other (left hip there is no erythema or noticed swelling, patient has mild pain with palpation the left hip and pain with range of motion neurovascular intact) Back exam: Present: full ROM. Absent: tenderness, paraspinal tenderness, vertebral tenderness Neurological exam: Present: reflexes normal. Absent: motor sensory deficit Skin exam: Present: warm, dry, intact, normal color. Absent: rash Course Vital Signs 02/06/19 08:56 Temperature 97.5 F L Pulse Rate 69 Respiratory 18 Rate Blood Pressure 130/70 O2 Sat by Pulse 99 Oximetry Medical Decision Making - Medical Decision Making X-ray shows hardware has eroded through cortication. I did discuss case with neck branch on-call for Dr. Rubalcava in which the patient will be admitted Disposition Clinical Impression: Hip fracture, left, Failed hardware Disposition: ADMITTED IP TO THIS HOSP Condition: Fair Referrals: Jn Morris MD [Primary Care Provider] - 1-2 days
--- NOTE | 2019-02-06 10:08 | XR ---
EXAMINATION TYPE: XR Hip Complete LT DATE OF EXAM: 02/06/2019 CLINICAL HISTORY: Left hip pain TECHNIQUE: AP and frogleg views of the left hip are obtained. COMPARISON: None. FINDINGS: The cephalomedullary alexis abuts the femoral head neck junction with osseous defect/cortical breakthrough seen at the distal aspect of the alexis. There is surrounding lucency. Additionally there i s severe left femoral acetabular arthropathy with flattening of femoral head and opposing surface scl erosis. Diffuse osseous demineralization. No acute dislocation. IMPRESSION: Cortical breakthrough osseous defect of the distal aspect of the left femoral cephalomedu llary alexis at the lateral femoral head neck junction. There is also severe left femoral acetabular art hropathy with remodeling and flattening of the femoral head and diffuse osseous demineralization.
[2019-02-06] MEDS ORDERED: MORPHINE SULFATE 4 MG/ML SYRINGE IVP STA (10:10)
[2019-02-06] MEDS ORDERED: ONDANSETRON 4 MG/2 ML VIAL IVP STA (10:10)
[2019-02-06] MEDS ORDERED: NALOXONE 0.4 MG/ML 1 ML VIAL IV PRN (10:41)
[2019-02-06] MEDS ORDERED: ONDANSETRON 4 MG/2 ML VIAL IVP PRN (10:41)
[2019-02-06] MEDS ORDERED: HYDROmorphone 0.5 MG/0.5 ML SYRINGE IVP STA (11:41)
[2019-02-06 13:00] LABS: Basophils # (A) 0.1 k/uL (0-0.2); Basophils % (A) 1 %; Eosinophils % (A) 1 %; HCT 36.8 % (34.0-46.0); HGB 12.3 gm/dL (11.4-16.0); Lymphocytes # (A) 0.8 k/uL (1.0-4.8); Lymphocytes % (A) 18 %; MCH 33.5 pg (25.0-35.0); MCHC 33.5 g/dL (31.0-37.0); MCV 100.1 fL (80.0-100.0); Macrocytosis Slight; Mean Platelet Volume 7.8; Monocytes # (A) 0.4 k/uL (0-1.0); Monocytes % (A) 8 %; Neutrophils # (A) 3.3 k/uL (1.3-7.7); Neutrophils % (A) 71 %; Platelet Count 321 k/uL (150-450); RBC 3.67 m/uL (3.80-5.40); RDW 14.2 % (11.5-15.5); WBC 4.7 k/uL (3.8-10.6)
[2019-02-06 13:05] LABS: ALT 16 U/L (4-34); AST 34 U/L (14-36); African American GFR (CKD) >90 (>60 ml/min/1.73 sqM); Albumin 3.8 g/dL (3.5-5.0); Alkaline Phosphatase 93 U/L (38-126); Anion Gap 8 mmol/L; Blood Urea Nitrogen 19 mg/dL (7-17); Carbon Dioxide 25 mmol/L (22-30); Chloride 99 mmol/L (98-107); Glucose 77 mg/dL (74-99); Non-African American GFR(CKD) 82 (>60 ml/min/1.73 sqM); Potassium 4.6 mmol/L (3.5-5.1); Sodium 132 mmol/L (137-145); Total Bilirubin 0.9 mg/dL (0.2-1.3); Total Protein 6.5 g/dL (6.3-8.2)
[2019-02-06 13:09] LABS: Prothrombin Time 10.8 sec (9.0-12.0)
--- NOTE | 2019-02-06 13:49 | P.HPOR ---
History of Present Illness H&P Date: 02/06/19 Chief Complaint: avascular necrosis left femoral head Patient is an 88-year-old female who presented to [facility] today with regards to increasing pain in her left hip. Patient had originally undergone a ORIF procedure for a left intertrochanteric hip fracture back in 2016. About 3 or 4 months ago she started developing worsening pain in the hip, it was noted that the compression screw was protruding through the femoral head. She underwent a revision-type procedure in November 2018. She had been doing fairly well with this up until a few days ago, the pain has been constant with rest and ambulation. She reported to [facility] today for this. [facility], imaging and lab tests were done. Images demonstrated collapse of the femoral head and the compression screw protruding superiorly. The remaining hardware appears stable. I was contacted by the emergency room staff regarding this, was able to review the images with my attending Dr. Plascencia. Patient was admitted under our care with plan for likely surgical intervention. Patient was evaluated at bedside, her daughter was present. She's rather comfortable resting in bed, she is on pain medication. She notes most discomfort when she ambulates. She notes the pain on the lateral aspect of the hip pain in the groin. She admits no recent trauma. She denies any chest pain, shortness of breath, fever or chills, nausea vomiting. She has no other orthopedic complaints at this time. Review of Systems Constitutional: Reports as per HPI Past Medical History Past Medical History: Eye Disorder, Memory Impairment, Thyroid Disorder Additional Past Medical History / Comment(s): Pt states she had a monitoring analyst that showed rare irregular heart beat, vertigo, hypothyroid, mild memory impairment, bilateral macular degeneration, UTIs, scoliosis, constipation History of Any Multi-Drug Resistant Organisms: None Reported Past Surgical History: Back Surgery, Cholecystectomy, Joint Replacement, Orthopedic Surgery, Tubal Ligation Additional Past Surgical History / Comment(s): 2017 L hip ORIF, 11/28/18 revision fixation IT femur, total R hip arthroplasty, R elbow with hardware, low back surgery, colonoscopy Past Anesthesia/Blood Transfusion Reactions: No Reported Reaction Smoking Status: Former smoker - Past Family History Mother Family Medical History: Myocardial Infarction (AL) Additional Family Medical History / Comment(s): Mother of a AL at the age of 92 yrs. Father Family Medical History: Rheumatoid Arthritis (RA) Additional Family Medical History / Comment(s): Father had severe RA Medications and Allergies Home Medications Medication Instructions Recorded Confirmed Type Levothyroxine Sodium [Synthroid] 50 mcg PO DAILY 11/20/16 02/06/19 History Calcium Carbonate [Calcium] 600 mg PO DAILY 02/06/19 02/06/19 History Cholecalciferol [Vitamin D3 (25 1,000 unit PO DAILY 02/06/19 02/06/19 History Mcg = 1000 Iu)] Magnesium 200 mg PO DAILY 02/06/19 02/06/19 History Vit C/E/Zn/Coppr/Lutein/Zeaxan 1 cap PO DAILY 02/06/19 02/06/19 History [Preservision Areds 2 Softgel] Allergies Allergy/AdvReac Type Severity Reaction Status Date / Time No Known Allergies Allergy Verified 02/06/19 10:53 Physical Examination Left lower extremity: Previous surgical scar is well-healed on the lateral aspect. No obvious areas of soft tissue swelling or erythema. No open lesions or sores present.she has the hip flexed about 90, she finds this most comfortable. She is able to extend the leg out fully, this does reproduce some discomfort. Logroll maneuver the hip reproduces pain in the groin. She is able to straight leg raise. No effusion present around the knee, no tenderness with palpation. Calf is soft, no tenderness with palpation. Plantar flexion, dorsiflexion, EHL, FHL are intact. Dorsal pedis pulses 2+. Sensory exam light touch is intact throughout the extremity. Results - Labs Labs: Abnormal Lab Results - Last 24 Hours (Table) 02/06/19 02/06/19 Range/Units 10:20 10:20 RBC 3.67 L (3.80-5.40) m/uL MCV 100.1 H (80.0-100.0) fL Lymphocytes # 0.8 L (1.0-4.8) k/uL Sodium 132 L (137-145) mmol/L BUN 19 H (7-17) mg/dL H & H 02/06/19 Range/Units 10:20 Hgb 12.3 (11.4-16.0) gm/dL Hct 36.8 (34.0-46.0) % Coagulation 02/06/19 Range/Units 10:20 INR 1.0 (<1.2) Result Diagrams: 02/06/19 10:20 02/06/19 10:20 - Diagnostic results Hip x-ray: report reviewed, image reviewed Assessment and Plan Plan: Imaging: X-rays of the hip were obtained today in the ER. Images demonstrate evidence of avascular necrosis of the femoral head with migration of the compression screw through the superior aspect of the head. Remaining hardware remains intact. Significant osteoarthritis is present throughout the hip. Assessment: 1. 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 Left hip osteoarthritis Plan: I was able to discuss the case, going with physical exam findings and imaging studies my attending Dr. Plascencia. We will like to proceed with a hardware removal and left total hip arthroplasty tomorrow afternoon Risk and benefits of procedure were discussed the patient and family at bedside, she is in good understanding like to proceed Pain control bedrest at this time medical recommendations and clearance GI and DVT prophylaxis, likely subcu medication of surgery Further recommendations to follow Time with Patient: Less than 30
--- NOTE | 2019-02-06 16:54 | P.CONS ---
History of Present Illness - Reason for Consult Consult date: 02/06/19 Medical clearance preop Requesting physician: [place] Plascencia - Chief Complaint medical clearance preop - History of Present Illness The patient is a 88-year-old female with a past medical history of hypothyroidism who is admitted to the primary orthopedic service under Dr. Plascencia with planned left hip arthroplasty secondary to hardware failure in the left hip with avascular necrosis of the left femoral head. apparently the patient had previously underwent ORIF for left intertrochanteric hip fracture in 2016 and subsequently required revision earlier this year in November. the patient has been reporting ongoing left hip pain requiring her to now ambulate with a walker when she was previously walking with a cane. the patient denies any falls, she previously reported that she was healthy 2 years ago doing cross-country skiing, she is able to do light housework and lives in her own. She denies any chest pain or shortness of breath, she has a extremely remote smoking history. The patient then presented earlier today to the ER with intractable left hip p ain, imaging done from the ER include left hip x-ray showing cortical breakdownosseous defect of the distal aspect of the left femoral cephalometric early alexis at the lateral femoral neck junction, severe left femoral acetabular arthropathy with remodeling and flattening of the femoral head and diffuse osseous demineralization. the patient was given [place] and morphine and admitted from the ER. abnormal labs serum sodium 132, BUN 19, MCV 100.1 Review of Systems pertinent positives per HPI all other review of systems otherwise negative Past Medical History Past Medical History: Eye Disorder, Memory Impairment, Thyroid Disorder Additional Past Medical History / Comment(s): Pt states she had a cardiac m onitor that showed rare irregular heart beat, vertigo, hypothyroid, mild memory impairment, bilateral macular degeneration, UTIs, scoliosis, constipation History of Any Multi-Drug Resistant Organisms: None Reported Past Surgical History: Back Surgery, Cholecystectomy, Joint Replacement, Orthopedic Surgery, Tubal Ligation Additional Past Surgical History / Comment(s): 2016 L hip ORIF, 11/28/18 revision fixation IT femur, total R hip arthroplasty, R elbow with hardware, low back surgery, colonoscopy Past Anesthesia/Blood Transfusion Reactions: No Reported Reaction Smoking Status: Former smoker - Past Family History Mother Family Medical History: Myocardial Infarction (CT) Additional Family Medical History / Comment(s): Mother of a CT at the age of 92 yrs. Father Family Medical History: Rheumatoid Arthritis (RA) Additional Family Medical History / Comment(s): Father had severe RA Medications and Allergies Home Medications Medication Instructions Recorded Confirmed Type Levothyroxine Sodium [Synthroid] 50 mcg PO DAILY 11/20/16 02/06/19 History Calcium Carbonate [Calcium] 600 mg PO DAILY 02/06/19 02/06/19 History Cholecalciferol [Vitamin D3 (25 1,000 unit PO DAILY 02/06/19 02/06/19 History Mcg = 1000 Iu)] Magnesium 200 mg PO DAILY 02/06/19 02/06/19 History Vit C/E/Zn/Coppr/Lutein/Zeaxan 1 cap PO DAILY 02/06/19 02/06/19 History [Preservision Areds 2 Softgel] Allergies Allergy/AdvReac Type Severity Reaction Status Date / Time No Known Allergies Allergy Verified 02/06/19 10:53 Physical Exam Vitals: Vital Signs Temp Pulse Pulse Resp BP BP Pulse Ox 02/06/19 16:00 16 02/06/19 13:31 98.2 F 66 16 149/66 98 02/06/19 12:42 70 17 121/70 97 02/06/19 10:39 70 16 145/75 97 02/06/19 08:56 97.5 F L 69 18 130/70 99 Intake and Output 02/06/19 02/06/19 02/06/19 06:59 14:59 22:59 Other: Voiding Method Indwelling Catheter # Voids 0 # Bowel Movements 0 Weight 52.163 kg Constitutional: No acute distress, conversant, pleasant Eyes: Anicteric sclerae, moist conjunctiva, no lid-lag, PERRLA ENMT: NC/AT,Oropharynx clear, no erythema, exudates Neck:Supple, FROM, no masses, or JVD, No carotid bruits; No thyromegaly Lungs: Clear to auscultation, Clear to percussion, Normal respiratory effort, no accessory muscle use Cardiovascular: Heart regular in rate and rhythm, No murmurs, gallops, or rubs no peripheral edema Abdominal: Soft Nontender, nom distended, no guarding, no rebound or rigidity, Normoactive bowel sounds No hepatomegaly, No splenomegaly, No palpable mass No abdominal wall hernia noted Skin: Normal temperature, tone, texture, turgor, No induration No subcutaneous nodules, No rash, lesions, No ulcers Extremities:left hip pain on log roll, pain on left hip extension, no overlying erythema or soft tissue swelling, EHL FHL nd plantar and dorsiflexion intact, no neurovascular compromise Psychiatric: Alert and oriented to person, place and time, Appropriate affect Intact judgement Neuro: Muscles Strength 5/5 in all 4 extremities, Sensation to light touch grossly present throughout, Cranial nerves II-XII grossly intact. No focal sensory deficits Results CBC & Chem 7: 02/06/19 10:20 02/06/19 10:20 Labs: Abnormal Lab Results - Last 24 Hours (Table) 02/06/19 02/06/19 Range/Units 10:20 10:20 RBC 3.67 L (3.80-5.40) m/uL MCV 100.1 H (80.0-100.0) fL Lymphocytes # 0.8 L (1.0-4.8) k/uL Sodium 132 L (137-145) mmol/L BUN 19 H (7-17) mg/dL Assessment and Plan Assessment: avascular necrosis of the left hip left hip pain with left hardware failure hyponatremia hypothyroidism medical clearance Plan: the patient is admitted for planned left hip arthroplasty secondary to hardware failure and left avascular necrosis. we'll defer to primary regarding ongoing analgesic therapy. She is cleared for intermediate risk surgery, METS < 4, RCRI = 0. Patient is hemodynamically stable and will have her surgery tomorrow. we will initiate her on some gentle hydration NS @ 75 cc/hr to treat her hyponatremia. We'll continue to follow her clinical course, the patient would like to be a DO NOT RESUSCITATE after her surgery.
[2019-02-06] MEDS: MORPHINE SULFATE 4 MG/ML SYRINGE IV PRN (16:57)
[2019-02-06] MEDS: SODIUM CHLORIDE 0.9% 1,000 ML IV SCH (18:22)
[2019-02-06] MEDS: HYDROcodone/APAP 5-325MG 1 EACH TAB PO PRN (22:05)
[2019-02-07] MEDS: LEVOTHYROXINE 50 MCG TAB PO SCH (04:46)
[2019-02-07] MEDS: HYDROcodone/APAP 5-325MG 1 EACH TAB PO PRN (04:46)
[2019-02-07] MEDS: SODIUM CHLORIDE 0.9% 1,000 ML IV SCH ×2 (06:20→21:20)
[2019-02-07] MEDS: CHOLECALCIFEROL 1,000 UNIT TAB PO SCH (08:55)
[2019-02-07] MEDS: CALCIUM CARBONATE 500 MG CHEWABLE PO SCH (08:55)
[2019-02-07] MEDS: MAGNESIUM OXIDE 400 MG TAB PO SCH (08:55)
--- NOTE | 2019-02-07 11:28 | P.PN ---
Subjective Progress Note Date: 02/07/19 patient examined at bedside reporting that she has good sleep overnight, awaiting surgery this morningto have a left total hip arthroplasty with likely hardware removal later today. patient denies any chest pain or shortness of breath. patient only reporting pain when attempting to ambulate. No acute ev ents overnight Objective - Vital Signs Vital signs: Vital Signs Temp 98.2 F 02/07/19 05:30 Pulse 72 02/07/19 08:00 Resp 16 02/07/19 08:00 BP 139/66 02/07/19 05:30 Pulse Ox 96 02/07/19 05:30 Intake & Output 02/06/19 02/07/19 02/07/19 18:59 06:59 18:59 Output Total 600 Balance -600 Weight 52.163 kg Output: Urine 600 Other: Voiding Method Indwelling Catheter Indwelling Catheter Indwelling Catheter # Voids 0 100 # Bowel Movements 0 - Exam Constitutional: No acute distress, conversant, pleasant Eyes: Anicteric sclerae, moist conjunctiva, no lid-lag, PERRLA ENMT: NC/AT,Oropharynx clear, no erythema, exudates Neck:Supple, FROM, no masses, or JVD, No carotid bruits; No thyromegaly Lungs: Clear to auscultation, Clear to percussion, Normal respiratory effort, no accessory muscle use Cardiovascular: Heart regular in rate and rhythm, No murmurs, gallops, or rubs no peripheral edema Abdominal: Soft Nontender, nom distended, no guarding, no rebound or rigidity, Normoactive bowel sounds No hepatomegaly, No splenomegaly, No palpable mass No abdominal wall hernia noted Skin: Normal temperature, tone, texture, turgor, No induration No subcutaneous nodules, No rash, lesions, No ulcers Extremities:left hip pain on log roll, pain on left hip extension, no overlying erythema or soft tissue swelling, EHL FHL nd plantar and dorsiflexion intact, no neurovascular compromise Psychiatric: Alert and oriented to person, place and time, Appropriate affect Intact judgement Neuro: Muscles Strength 5/5 in all 4 extremities, Sensation to light touch grossly present throughout, Cranial nerves II-XII grossly intact. No focal sensory deficits - Labs CBC & Chem 7: 02/06/19 10:20 02/06/19 10:20 Labs: Abnormal Lab Results - Last 24 Hours (Table) 02/06/19 02/06/19 Range/Units 10:20 10:20 RBC 3.67 L (3.80-5.40) m/uL MCV 100.1 H (80.0-100.0) fL Lymphocytes # 0.8 L (1.0-4.8) k/uL Sodium 132 L (137-145) mmol/L BUN 19 H (7-17) mg/dL Assessment and Plan Assessment: avascular necrosis of the left hip * orthopedics following deferred to primary regarding pain management * currently on [place] and Dilaudid left hip pain with left hardware failure * scheduled for left hip arthroplasty with hardware removal hyponatremia * Continue IV fluids and recheck labs tomorrow hypothyroidism * continue levothyroxine 50 g daily medical clearance * cleared for intermediate risk surgery, METS < 4, RCRI = 0. * disposition * hemodynamically stable cleared to proceed with surgery today
[2019-02-07] MEDS: MORPHINE SULFATE 4 MG/ML SYRINGE IV PRN ×2 (14:46→21:50)
[2019-02-07] MEDS ORDERED: IV FLUID CONTINUATION 1,000 ML IV ONE (15:48)
[2019-02-07] MEDS ORDERED: fentaNYL (PF) 50 MCG/ML 2 ML AMP IV ONE (16:06)
[2019-02-07] MEDS ORDERED: PROPOFOL 10 MG/ML 20 ML VIAL IV ONE (16:23)
[2019-02-07] MEDS ORDERED: HEPARIN SODIUM,PORCINE 10,000 UNIT/ML 1 ML VIAL ONE (16:23)
[2019-02-07] MEDS ORDERED: fentaNYL (PF) 50 MCG/ML 2 ML AMP ONE (16:23)
[2019-02-07] MEDS ORDERED: LACTATED RINGERS 1,000 ML BAG IV ONE (16:23)
[2019-02-07] MEDS ORDERED: HYDROmorphone (PF) 1 MG/ML ONE (16:23)
[2019-02-07] MEDS ORDERED: KETAMINE 10 MG/ML 20 ML VIAL ONE (16:23)
[2019-02-07] MEDS ORDERED: SODIUM CHLORIDE 0.9% 50 ML with ceFAZolin 1,000 MG IV ONE ×2 (16:55)
[2019-02-07] MEDS ORDERED: ceFAZolin 3,000 MG in SODIUM CHLORIDE 0.9% IRRIGATIO 3,000 ML IRRIGATION ONE ×4 (17:00)
[2019-02-07] MEDS ORDERED: LACTATED RINGERS 1,000 ML IV ONE ×2 (17:00→20:27)
[2019-02-07] MEDS ORDERED: ACETAMINOPHEN TAB 325 MG TAB PO PRN (19:06)
--- NOTE | 2019-02-07 19:39 | P.OP ---
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 of a left intertrochanteric fracture/progressive left hip osteoarthrosis Postoperative Diagnosis: Same Procedure(s) Performed: Removal deep hardware left proximal femur/total hip arthroplasty Implants: Depuy Reclaim size 19 x 1 40 distal stem/75 mm x 20 mm proximal body/32 mm +1 cobalt chrome femoral head/50 mm [place] acetabular shell with neutral polyethylene liner Anesthesia: spinal Surgeon: Wellington Plascencia Cutlery Grinder #1: Hunter Hu Estimated Blood Loss (ml): 700 Pathology: other (Femoral head) Condition: stable Disposition: PACU Indications for Procedure: The patient is an 88-year-old female who 2 years ago underwent ORIF of a left comminuted intertrochanteric femur fracture presents with collapse of her left f emoral head after recent revision over fixation. She also was noted have severe osteoarthrosis involving the left hip. She had significant symptomatology after thorough discussion of the risks and benefits of surgery opted to proceed. Specific risks of surgery to include infection, neurovascular injury, fracture, instability, leg length discrepancy, and possible need for subsequent procedures was discussed. Informed was obtained. Operative Findings: As below Description of Procedure: The patient was brought to the operating room, and after induction of spinal anesthesia was placed in the lateral decubitus position. The pelvis was stabilized perpendicular to the floor with a pegboard. Bony prominences were appropriately padded. The left lower extremity was prepped and draped in normal fashion. A 20 cm incision was made centered over the greater trochanter extending distally in line with the femoral shaft and proximally to level ASIS. Skin and subcu tissues were divided sharply. Electrocautery was used for hemostasis. The fascia olga lidia and gluteus daniel fascia was split in line skin incision. The muscle fibers were bluntly dissected proximally. The vastus lateralis fascia was split distally. The previously placed hardware was identified and removed. The anterior and posterior margins of the gluteus medius muscle was identified and the anterior two thirds was detached from the greater trochanter with electrocautery. The gluteus minimus tendon was identified and detached in a similar fashion. A wide capsulotomy is performed. A lower neck cut was made approximately 1-1/2 cm above the level lesser trochanter with a sagittal saw at a 45 shaft. The head was then extracted in pieces. The acetabulum was inspected. An anterior and posterior retractor was placed. The capsular/ labral tissue was sharply debrided clearly defining the acetabular margins. I began reaming with a 45 mm reamer taking care to i nitially medialize then at 45 of abduction and 20 of anteversion. Sequential reaming is performed up to 49 mm. A trial 50 mm acetabular shell was inserted again at 45 of abduction and 20 of anteversion. There was good stability and rim fit. The final implant was inserted in the same orientation and was fully seated. Again there was good rim fit and stability. A neutral polyethylene liner was impacted. Care was taken to avoid any soft tissue interposition. Attention was then paid towards preparing the proximal femur. A canal finder was used to find the femoral canal. The distal canal was then reamed up to 19 mm the appropriate reamer to the appropriate depth. There is good distal chatter. With the reamer place the proximal portion was reamed up to 20 mm to a depth of 75 mm. The proximal body was then attached and proximal a 15 of anteversion with the leg perpendicular to the floor. A 32 mm +1 trial head was placed. The hip was gently reduced. It was taken through range of motion felt to be stable in flexion and extension with internal and external rotation. I felt there is adequate buddhist of soft tissue tension. I did check positioning with fluoroscopy. Hip was gently dislocated. The trial components were then removed. The final 19 x 140 mm distal stem was inserted with good purchase. The 20 mm x 75 mm proximal body was placed in 15 of anteversion and was fully seated. This was locked in place. The 32 mm +1 cobalt chrome femoral head was gently impacted. The hip was gently relocated and again taken through range of motion and felt to be stable in flexion and extension with internal and external rotation. Again I felt there is adequate buddhist of soft tissue tension. Pulsatile lavage was utilized. The gluteus minimus and medius tendons reattached the greater trochanter with #2 Ethibond suture. The fascia olga lidia and gluteus daniel fascia was closed in a similar fashion. A deep drain was not placed as a was minimal bleeding at this point. She did receive 270 mm of Cell Saver. The subcu tissues were reapproximated interrupted 2-0 Vicryl sutures. The skin was reapproximated with 3-0 subcuticular strata fix suture. Skin tape and adhesive was applied. A sterile dressing was applied. The patient was then awoken from sedation and transferred to recovery room in fair condition. Blood loss was estimated 7000 mL. No complications were incurred. Sponge and needle counts were correct at the end the case. David CONNOR assisted during the major components the case to include exposure, hardware removal, bone preparat ion, and implantation.
--- NOTE | 2019-02-07 19:45 | XR ---
EXAMINATION TYPE: XR Hip Limited LT DATE OF EXAM: 02/07/2019 COMPARISON: 02/06/2019 HISTORY: Hip surgery TECHNIQUE: Single view FINDINGS: There is a left total hip prosthesis. Components are in anatomic position. IMPRESSION: No complicating process seen.
[2019-02-07] MEDS ORDERED: HYDROmorphone 0.5 MG/0.5 ML SYRINGE IVP ONE ×2 (20:02→20:16)
[2019-02-07] MEDS ORDERED: SODIUM CHLORIDE 0.9% 1,000 ML IV ONE (21:14)
[2019-02-07] MEDS: HEPARIN SODIUM,PORCINE 5,000 UNIT/ML 1 ML VIAL SQ SCH ×2 (21:23→21:25)
[2019-02-07] MEDS: SENNOSIDES-DOCUSATE SODIUM 1 EACH TAB PO SCH (21:50)
--- NOTE | 2019-02-07 22:28 | FL ---
EXAMINATION TYPE: FL guidance operating room, XR Hip Limited LT DATE OF EXAM: 02/07/2019 CLINICAL HISTORY: Left hip fracture. TECHNIQUE: Fluoroscopy.Intraoperative limited views left hip. COMPARISON: Left hip x-ray from yesterday.. FINDINGS: Fluoroscopic guidance was provided during left hip replacement procedure performed by Dr. Plascencia. A total of 21 seconds of fluoroscopic time was utilized during the procedure and 2 spot fluor oscopic intraoperative images are acquired. Intraoperative images obtained show successful removal of prior fixating hardware with new long stem total hip arthroplasty that appears satisfactory in position on intraoperative frontal projection. IMPRESSION: As Above.
[2019-02-08] MEDS ORDERED: SODIUM CHLORIDE 0.9% 1,000 ML IV ONE ×3 (01:00→09:04)
[2019-02-08] MEDS: traMADol 50 MG TAB PO PRN ×2 (01:37→15:32)
[2019-02-08] MEDS: MORPHINE SULFATE 4 MG/ML SYRINGE IV PRN ×4 (02:34→23:56)
[2019-02-08] MEDS ORDERED: KETOROLAC 30 MG/ML 1 ML VIAL IVP STA (03:18)
[2019-02-08] MEDS: HYDROcodone/APAP 5-325MG 1 EACH TAB PO PRN ×3 (05:35→19:59)
[2019-02-08] MEDS: LEVOTHYROXINE 50 MCG TAB PO SCH (05:35)
[2019-02-08 07:41] LABS: Calcium 7.6 mg/dL (8.4-10.2); Potassium 4.5 mmol/L (3.5-5.1)
[2019-02-08 07:43] LABS: Basophils % (A) 0 %; Eosinophils % (A) 0 %; HCT 23.2 % (34.0-46.0); Lymphocytes # (A) 0.9 k/uL (1.0-4.8); Lymphocytes % (A) 19 %; MCH 34.2 pg (25.0-35.0); MCV 103.6 fL (80.0-100.0); Macrocytosis Slight; Mean Platelet Volume 8.1; Monocytes # (A) 0.3 k/uL (0-1.0); Monocytes % (A) 7 %; Neutrophils # (A) 3.2 k/uL (1.3-7.7); Neutrophils % (A) 73 %; Platelet Count 241 k/uL (150-450); RBC 2.24 m/uL (3.80-5.40); RDW 14.2 % (11.5-15.5); WBC 4.4 k/uL (3.8-10.6)
[2019-02-08 07:45] LABS: HGB 7.7 gm/dL (11.4-16.0)
[2019-02-08] MEDS: HEPARIN SODIUM,PORCINE 5,000 UNIT/ML 1 ML VIAL SQ SCH ×2 (08:58→19:59)
[2019-02-08] MEDS: CALCIUM CARBONATE 500 MG CHEWABLE PO SCH (08:58)
[2019-02-08] MEDS: CHOLECALCIFEROL 1,000 UNIT TAB PO SCH (08:59)
[2019-02-08] MEDS: MAGNESIUM OXIDE 400 MG TAB PO SCH (08:59)
--- NOTE | 2019-02-08 12:18 | P.PN ---
Subjective Progress Note Date: 02/08/19 Principal diagnosis: status post hardware removal left femur, left total hip arthroplasty Patient was evaluated today at bedside, she is resting in a chair. She notes discomfort throughout the left lower extremity. Her hemoglobin was noted to decrease significantly since yesterday, I have ordered 1 unit of blood to be given. they have had a difficult time getting her IV. She denies any chest pain or shortness of breath at this time. Objective - Vital Signs Vital signs: Vital Signs Temp 98 F 02/08/19 07:19 Pulse 88 02/08/19 10:11 Resp 16 02/08/19 07:19 BP 114/57 02/08/19 10:11 Pulse Ox 92 L 02/08/19 07:19 Intake & Output 02/07/19 02/08/19 02/08/19 18:59 06:59 18:59 Intake Total 2231 1300 Output Total 1800 700 Balance 431 600 Intake: IV 1151 200 Intake, IV Titration 1100 Amount Sodium Chloride 0.9% 1, 100 000 ml @ 75 mls/hr IV . [id number] [facility] Rx#:[id number] Sodium Chloride 0.9% 1, 1000 000 ml @ 999 mls/hr IV . Q1H1M ONE Rx#:[id number] Oral 1080 Output: Urine 1100 700 Estimated Blood Loss 700 Other: Voiding Method Indwelling Catheter Indwelling Catheter Indwelling Catheter # Voids 2 - Exam Left lower extremity: Incision is clean, dry and intact, tape is in good position. Minimal soft tissue swelling present throughout the extremity. Calf is soft, no tenderness with palpation. Plantar flexion, dorsiflexion, EHL, FHL is intact. Dorsal pedis pulses 2+ - Labs CBC & Chem 7: 02/08/19 07:11 02/08/19 07:11 Labs: Abnormal Lab Results - Last 24 Hours (Table) 02/08/19 02/08/19 02/08/19 Range/Units 07:11 07:11 09:13 RBC 2.24 L (3.80-5.40) m/uL Hgb 7.7 L D (11.4-16.0) gm/dL Hct 23.2 L (34.0-46.0) % MCV 103.6 H (80.0-100.0) fL Lymphocytes # 0.9 L (1.0-4.8) k/uL Sodium 133 L (137-145) mmol/L Carbon Dioxide 21 L (22-30) mmol/L BUN 20 H (7-17) mg/dL Calcium 7.6 L (8.4-10.2) mg/dL Crossmatch See Detail Assessment and Plan Plan: Assessment: Postoperative day #1 status post hardware removal left femur, left total hip arthroplasty Acute blood loss anemia, expected surgical outcome Plan: Pain control, continue current medication GI and DVT prophylaxis, continue current medication Daily dressing changes Encourage incentive spirometer Medical recommendations Continue physical therapy evaluation Plan for discharge to rehab in stable Time with Patient: Less than 30
--- NOTE | 2019-02-08 15:26 | P.PN ---
Subjective Progress Note Date: 02/08/19 patient seen and examined at bedside, working with physical therapy sitting up in chair, was apparently a 2 person assist to the chair walked a few steps. Hemoglobin down to 7.7 from 12.3. pain is well controlled. Postoperative day #1 status post hardware removal left femur, left total hip arthroplasty Objective - Vital Signs Vital signs: Vital Signs Temp 98 F 02/08/19 07:19 Pulse 85 02/08/19 08:41 Resp 16 02/08/19 07:19 BP 83/49 02/08/19 08:41 Pulse Ox 92 L 02/08/19 07:19 Intake & Output 02/07/19 02/08/19 02/08/19 18:59 06:59 18:59 Intake Total 2231 1300 Output Total 1800 700 Balance 431 600 Intake: IV 1151 200 Intake, IV Titration 1100 Amount Sodium Chloride 0.9% 1, 100 000 ml @ 75 mls/hr IV . [id number] [facility] Rx#:[id number] Sodium Chloride 0.9% 1, 1000 000 ml @ 999 mls/hr IV . Q1H1M [facility] Rx#:[id number] Oral 1080 Output: Urine 1100 700 Estimated Blood Loss 700 Other: Voiding Method Indwelling Catheter Indwelling Catheter # Voids 2 - Exam Constitutional: No acute distress, conversant, pleasant Eyes: Anicteric sclerae, moist conjunctiva, no lid-lag, PERRLA ENMT: NC/AT,Oropharynx clear, no erythema, exudates Neck:Supple, FROM, no masses, or JVD, No carotid bruits; No thyromegaly Lungs: Clear to auscultation, Clear to percussion, Normal respiratory effort, no accessory muscle use Cardiovascular: Heart regular in rate and rhythm, No murmurs, gallops, or rubs no peripheral edema Abdominal: Soft Nontender, nom distended, no guarding, no rebound or rigidity, Normoactive bowel sounds No hepatomegaly, No splenomegaly, No palpable mass No abdominal wall hernia noted Skin: Normal temperature, tone, texture, turgor, No induration No subcutaneous nodules, No rash, lesions, No ulcers Extremities:left hip pain on log roll, pain on left hip extension, no overlying erythema or soft tissue swelling, EHL FHL nd plantar and dorsiflexion intact, no neurovascular compromise Psychiatric: Alert and oriented to person, place and time, Appropriate affect Intact judgement Neuro: Muscles Strength 5/5 in all 4 extremities, Sensation to light touch grossly present throughout, Cranial nerves II-XII grossly intact. No focal sensory deficits - Labs CBC & Chem 7: 02/08/19 07:11 02/08/19 07:11 Labs: Abnormal Lab Results - Last 24 Hours (Table) 02/08/19 02/08/19 Range/Units 07:11 07:11 RBC 2.24 L (3.80-5.40) m/uL Hgb 7.7 L D (11.4-16.0) gm/dL Hct 23.2 L (34.0-46.0) % MCV 103.6 H (80.0-100.0) fL Lymphocytes # 0.9 L (1.0-4.8) k/uL Sodium 133 L (137-145) mmol/L Carbon Dioxide 21 L (22-30) mmol/L BUN 20 H (7-17) mg/dL Calcium 7.6 L (8.4-10.2) mg/dL Assessment and Plan Assessment: acute blood loss anemia * Hg 7.7 down from 12.3 * expected outcome of surgery avascular necrosis of the left hip * orthopedics following deferred to primary regarding pain management * currently on [place] and Dilaudid left hip pain with left hardware failure * scheduled for left hip arthroplasty with hardware removal hyponatremia * Continue IV fluids and recheck labs tomorrow hypothyroidism * continue levothyroxine 50 g daily medical clearance * cleared for intermediate risk surgery, METS < 4, RCRI = 0. disposition * hemodynamically stable cleared to proceed with surgery today
[2019-02-08] MEDS: SODIUM CHLORIDE 0.9% 1,000 ML IV SCH (18:21)
[2019-02-08] MEDS: SENNOSIDES-DOCUSATE SODIUM 1 EACH TAB PO SCH (19:59)
[2019-02-09] MEDS: SODIUM CHLORIDE 0.9% 1,000 ML IV SCH ×2 (00:05→12:32)
[2019-02-09] MEDS: HYDROcodone/APAP 5-325MG 1 EACH TAB PO PRN ×3 (04:13→19:28)
[2019-02-09] MEDS: LEVOTHYROXINE 50 MCG TAB PO SCH (04:18)
[2019-02-09] MEDS: CALCIUM CARBONATE 500 MG CHEWABLE PO SCH (08:48)
[2019-02-09] MEDS: HEPARIN SODIUM,PORCINE 5,000 UNIT/ML 1 ML VIAL SQ SCH ×2 (08:48→20:49)
[2019-02-09] MEDS: CHOLECALCIFEROL 1,000 UNIT TAB PO SCH (08:48)
[2019-02-09] MEDS: MAGNESIUM OXIDE 400 MG TAB PO SCH (08:48)
[2019-02-09] MEDS: MORPHINE SULFATE 4 MG/ML SYRINGE IV PRN ×2 (08:53→13:42)
--- NOTE | 2019-02-09 09:55 | P.PN ---
Subjective Progress Note Date: 02/09/19 patient seen and examined at bedside, working with physical therapy sitting up in chair, was apparently a 2 person assist to the chair walked to the window and back. PT recs rehab. Hemoglobin down to 7.7 from 12.3.received a unit of packed RBCs overnight pain is well controlled. Postoperative day #2 status post hardware removal left femur, left total hip arthroplasty. rates pain 6/10. No c\o dyspnea or chest pain. Objective - Vital Signs Vital signs: Vital Signs Temp 98.2 F 02/09/19 07:26 Pulse 111 H 02/09/19 07:26 Resp 18 02/09/19 07:26 BP 149/79 02/09/19 07:26 Pulse Ox 95 02/09/19 07:26 Intake & Output 02/08/19 02/09/19 02/09/19 18:59 06:59 18:59 Intake Total 310 262.5 Output Total 300 500 Balance 10 -237.5 Intake: Intake, IV Titration 262.5 Amount Sodium Chloride 0.9% 1, 262.5 000 ml @ 75 mls/hr IV . [id number] [facility] Rx#:[id number] Blood Product 310 Rc As-1 Unit 310 [id number] Output: Urine 300 500 Uretheral (Erazo) 300 Other: Voiding Method Indwelling Catheter Indwelling Catheter # Voids 1 - Exam Constitutional: No acute distress, conversant, pleasant Eyes: Anicteric sclerae, moist conjunctiva, no lid-lag, PERRLA ENMT: NC/AT,Oropharynx clear, no erythema, exudates Neck:Supple, FROM, no masses, or JVD, No carotid bruits; No thyromegaly Lungs: Clear to auscultation, Clear to percussion, Normal respiratory effort, no accessory muscle use Cardiovascular: Heart regular in rate and rhythm, No murmurs, gallops, or rubs no peripheral edema Abdominal: Soft Nontender, nom distended, no guarding, no rebound or rigidity, Normoactive bowel sounds No hepatomegaly, No splenomegaly, No palpable mass No abdominal wall hernia noted Skin: Normal temperature, tone, texture, turgor, No induration No subcutaneous nodules, No rash, lesions, No ulcers Extremities:left hip pain on log roll, pain on left hip extension, no overlying erythema or soft tissue swelling, EHL FHL nd plantar and dorsiflexion intact, no neurovascular compromise Psychiatric: Alert and oriented to person, place and time, Appropriate affect Intact judgement Neuro: Muscles Strength 5/5 in all 4 extremities, Sensation to light touch grossly present throughout, Cranial nerves II-XII grossly intact. No focal sensory deficits - Labs CBC & Chem 7: 02/08/19 07:11 02/08/19 07:11 Labs: Abnormal Lab Results - Last 24 Hours (Table) 02/08/19 Range/Units 09:13 Crossmatch See Detail Assessment and Plan Assessment: acute blood loss anemia * Hg 7.7 down from 12.3 * expected outcome of surgery * 1 U PRBCs transfuse yesterday will need CBC avascular necrosis of the left hip * orthopedics following deferred to primary regarding pain management * currently on [place] and Dilaudid left hip pain with left hardware failure * Postoperative day #2 status post hardware removal left femur, left total hip arthroplasty hyponatremia * Continue IV fluids and recheck labs tomorrow hypothyroidism * continue levothyroxine 50 g daily medical clearance * cleared for intermediate risk surgery, METS < 4, RCRI = 0. disposition * approaching discharge goals to [facility] * recommend discontinuing Erazo catheter today
[2019-02-09 11:15] LABS: Anisocytosis Slight; Basophils % (A) 1 %; Eosinophils # (A) 0.1 k/uL (0-0.7); Eosinophils % (A) 1 %; HCT 23.8 % (34.0-46.0); Lymphocytes % (A) 19 %; MCH 33.4 pg (25.0-35.0); MCHC 33.7 g/dL (31.0-37.0); MCV 99.1 fL (80.0-100.0); Macrocytosis Slight; Mean Platelet Volume 7.7; Monocytes # (A) 0.4 k/uL (0-1.0); Monocytes % (A) 9 %; Neutrophils # (A) 3.5 k/uL (1.3-7.7); Neutrophils % (A) 69 %; Platelet Count 254 k/uL (150-450); RBC 2.41 m/uL (3.80-5.40); RDW 16.6 % (11.5-15.5); WBC 5.1 k/uL (3.8-10.6)
--- NOTE | 2019-02-09 11:34 | P.PN ---
Subjective Progress Note Date: 02/09/19 Principal diagnosis: status post hardware removal left femur, left total hip arthroplasty Patient was evaluated today at bedside, she is resting in a chair. Pain is improved since yesterday. She denies any chest pain or shortness of breath at this time. Objective - Vital Signs Vital signs: Vital Signs Temp 98.2 F 02/09/19 07:26 Pulse 111 H 02/09/19 07:26 Resp 18 02/09/19 07:26 BP 149/79 02/09/19 07:26 Pulse Ox 95 02/09/19 07:26 Intake & Output 02/08/19 02/09/19 02/09/19 18:59 06:59 18:59 Intake Total 310 262.5 Output Total 300 500 Balance 10 -237.5 Intake: Intake, IV Titration 262.5 Amount Sodium Chloride 0.9% 1, 262.5 000 ml @ 75 mls/hr IV . [id number] [facility] Rx#:[id number] Blood Product 310 Rc As-1 Unit 310 [id number] Output: Urine 300 500 Uretheral (Erazo) 300 Other: Voiding Method Indwelling Catheter Indwelling Catheter Indwelling Catheter # Voids 1 - Exam Left lower extremity: Incision is clean, dry and intact, tape is in good position. Minimal soft tissue swelling present throughout the extremity. Calf is soft, no tenderness with palpation. Plantar flexion, dorsiflexion, EHL, FHL is intact. Dorsal pedis pulses 2+ - Labs CBC & Chem 7: 02/09/19 10:26 02/08/19 07:11 Labs: Abnormal Lab Results - Last 24 Hours (Table) 02/08/19 02/09/19 Range/Units 09:13 10:26 RBC 2.41 L (3.80-5.40) m/uL Hgb 8.0 L (11.4-16.0) gm/dL Hct 23.8 L (34.0-46.0) % RDW 16.6 H (11.5-15.5) % Crossmatch See Detail Assessment and Plan Plan: Assessment: Postoperative day #2 status post hardware removal left femur, left total hip arthroplasty Acute blood loss anemia, expected surgical outcome Plan: Pain control, continue current medication GI and DVT prophylaxis, continue current medication Daily dressing changes Encourage incentive spirometer Medical recommendations Continue physical therapy evaluation Plan for discharge to rehab tomorrow Time with Patient: Less than 30
[2019-02-09] MEDS: FERROUS SULFATE 325 MG TAB PO SCH ×2 (12:32→17:23)
[2019-02-09] MEDS: SENNOSIDES-DOCUSATE SODIUM 1 EACH TAB PO SCH (20:49)
[2019-02-09] MEDS: MAGNESIUM HYDROXIDE 2,400 MG/10 ML CUP PO PRN (20:49)
[2019-02-10] MEDS: HYDROcodone/APAP 5-325MG 1 EACH TAB PO PRN ×4 (01:44→20:23)
[2019-02-10] MEDS: SODIUM CHLORIDE 0.9% 1,000 ML IV SCH ×2 (01:44→15:26)
[2019-02-10] MEDS: LEVOTHYROXINE 50 MCG TAB PO SCH (05:38)
[2019-02-10 08:53] LABS: Anisocytosis Slight; Basophils % (A) 0 %; Eosinophils % (A) 2 %; HCT 22.3 % (34.0-46.0); HGB 7.7 gm/dL (11.4-16.0); Lymphocytes # (A) 1.1 k/uL (1.0-4.8); Lymphocytes % (A) 26 %; MCH 33.5 pg (25.0-35.0); MCHC 34.3 g/dL (31.0-37.0); MCV 97.5 fL (80.0-100.0); Mean Platelet Volume 7.7; Monocytes # (A) 0.3 k/uL (0-1.0); Monocytes % (A) 7 %; Neutrophils # (A) 2.8 k/uL (1.3-7.7); Neutrophils % (A) 64 %; Platelet Count 248 k/uL (150-450); RBC 2.29 m/uL (3.80-5.40); RDW 16.3 % (11.5-15.5); WBC 4.3 k/uL (3.8-10.6)
[2019-02-10 08:54] LABS: Eosinophils # (A) 0.1 k/uL (0-0.7)
[2019-02-10] MEDS: MAGNESIUM HYDROXIDE 2,400 MG/10 ML CUP PO PRN (10:06)
[2019-02-10] MEDS: CHOLECALCIFEROL 1,000 UNIT TAB PO SCH (10:07)
[2019-02-10] MEDS: CALCIUM CARBONATE 500 MG CHEWABLE PO SCH (10:07)
[2019-02-10] MEDS: FERROUS SULFATE 325 MG TAB PO SCH ×2 (10:07→16:39)
[2019-02-10] MEDS: MAGNESIUM OXIDE 400 MG TAB PO SCH (10:07)
[2019-02-10] MEDS: HEPARIN SODIUM,PORCINE 5,000 UNIT/ML 1 ML VIAL SQ SCH ×2 (10:08→20:27)
--- NOTE | 2019-02-10 14:37 | P.PN ---
Subjective Progress Note Date: 02/10/19 Principal diagnosis: status post left total hip arthroplasty/hardware removal The patient notes improvement with regards to her pain level. She's been able to urinate some today. She is passing gas. Objective - Vital Signs Vital signs: Vital Signs Temp 98.2 F 02/10/19 14:32 Pulse 74 02/10/19 14:32 Resp 17 02/10/19 14:32 BP 107/60 02/10/19 14:32 Pulse Ox 98 02/10/19 14:32 Intake & Output 02/09/19 02/10/19 02/10/19 18:59 06:59 18:59 Intake Total 1200 375 Output Total 1015 1225 Balance 1200 -640 -1225 Intake: IV 600 375 Sodium Chloride 0.9% 1, 600 375 000 ml @ 75 mls/hr IV . [id number] [facility] Rx#:[id number] Intake, IV Titration 600 Amount Sodium Chloride 0.9% 1, 600 000 ml @ 75 mls/hr IV . [id number] [facility] Rx#:[id number] Output: Urine 1015 1225 Uretheral (Erazo) 900 1000 Other: Voiding Method Indwelling Catheter Toilet # Voids 1 1 - Exam left hip incision clean/try/intact Negative Homans left lower extremity Neurovascular exam intact left lower extremity - Labs CBC & Chem 7: 02/10/19 07:31 02/08/19 07:11 Labs: Abnormal Lab Results - Last 24 Hours (Table) 02/10/19 Range/Units 07:31 RBC 2.29 L (3.80-5.40) m/uL Hgb 7.7 L (11.4-16.0) gm/dL Hct 22.3 L (34.0-46.0) % RDW 16.3 H (11.5-15.5) % Assessment and Plan Assessment: status post left total hip arthroplasties/hardware removal Acute blood loss anemia Urinary retention Plan: continue therapy. Monitor hemoglobin. Monitor urine output. Plan discharge to rehab Tuesday. Anticoagulation with heparin. Time with Patient: Less than 30
--- NOTE | 2019-02-10 15:47 | P.PN ---
Subjective Progress Note Date: 02/10/19 Principal diagnosis: Medical management Patient was seen and examined. No acute events overnight. Patient reports well controlled pain in her left hip. She denies any chest pain, shortness of breath or palpitations. No nausea or vomiting. No fever or chills. Objective - Vital Signs Vital signs: Vital Signs Temp 98.2 F 02/10/19 14:32 Pulse 74 02/10/19 14:32 Resp 17 02/10/19 14:32 BP 107/60 02/10/19 14:32 Pulse Ox 98 02/10/19 14:32 Intake & Output 02/09/19 02/10/19 02/10/19 18:59 06:59 18:59 Intake Total 1200 375 Output Total 1015 1225 Balance 1200 -640 -1225 Intake: IV 600 375 Sodium Chloride 0.9% 1, 600 375 000 ml @ 75 mls/hr IV . [id number] [facility] Rx#:[id number] Intake, IV Titration 600 Amount Sodium Chloride 0.9% 1, 600 000 ml @ 75 mls/hr IV . [id number] [facility] Rx#:[id number] Output: Urine 1015 1225 Uretheral (Erazo) 900 1000 Other: Voiding Method Indwelling Catheter Toilet # Voids 1 1 - Exam General: [non toxic], [no distress], [appears at stated age] Derm: [warm], [dry] Head: [atraumatic], [normocephalic], [symmetric] Eyes: [EOMI], [no lid lag], [anicteric sclera] Mouth: [no lip lesion], [mucus membranes moist] Cardiovascular: [S1S2 reg], [no murmur], [positive DP pulse bilateral] Lungs: [CTA bilateral], [no rhonchi, no rales] , [no accessory muscle use] Abdominal: [soft], [ nontender to palpation], [no guarding], [no appreciable organomegaly] Ext: [no gross muscle atrophy], [no edema], [no contractures] Neuro: [ CN II-XI grossly intact], [left lower travis limited range of motion at the hip due to pain] Psych: [Alert], [oriented], [appropriate affect] - Labs CBC & Chem 7: 02/10/19 07:31 02/08/19 07:11 Labs: Abnormal Lab Results - Last 24 Hours (Table) 02/10/19 Range/Units 07:31 RBC 2.29 L (3.80-5.40) m/uL Hgb 7.7 L (11.4-16.0) gm/dL Hct 22.3 L (34.0-46.0) % RDW 16.3 H (11.5-15.5) % Assessment and Plan Assessment: Acute blood loss anemia Hyponatremia Hypothyroidism Avascular necrosis of the hip associated with left hip pain and left hardware failure POD 3 Hemoglobin 7.7 this morning. Stable. Expected result of surgery. Plans: Repeat CBC tomorrow morning. Transfuse if hemoglobin less than 7. Sodium 133. Likely due to dehydration. Plans: Continue normal saline at 75 mL per hour. Repeat BMP tomorrow morning. Plans: Resume Synthroid. Plans: Management as per orthopedic surgery. [Plans for DC to rehab on Tuesday. Hemoglobin maintaining stable. Thank you for this consult. Please call with any additional questions or concerns.]
[2019-02-10] MEDS: HYDROcodone/APAP 5-325MG 1 EACH TAB PO SCH (16:36)
[2019-02-10] MEDS: traMADol 50 MG TAB PO PRN (19:13)
[2019-02-10] MEDS: SENNOSIDES-DOCUSATE SODIUM 1 EACH TAB PO SCH (20:23)
[2019-02-11] MEDS: HYDROcodone/APAP 5-325MG 1 EACH TAB PO SCH ×4 (02:06→20:44)
[2019-02-11] MEDS: HYDROcodone/APAP 5-325MG 1 EACH TAB PO PRN ×3 (03:30→15:43)
[2019-02-11] MEDS: SODIUM CHLORIDE 0.9% 1,000 ML IV SCH ×2 (05:44→17:05)
[2019-02-11] MEDS: LEVOTHYROXINE 50 MCG TAB PO SCH (06:08)
[2019-02-11 06:44] LABS: Anisocytosis Slight; HCT 21.4 % (34.0-46.0); HGB 7.2 gm/dL (11.4-16.0); MCH 33.1 pg (25.0-35.0); MCHC 33.8 g/dL (31.0-37.0); MCV 98.1 fL (80.0-100.0); Macrocytosis Slight; Mean Platelet Volume 7.7; Platelet Count 241 k/uL (150-450); RBC 2.18 m/uL (3.80-5.40); RDW 16.2 % (11.5-15.5); WBC 3.8 k/uL (3.8-10.6)
[2019-02-11] MEDS: HEPARIN SODIUM,PORCINE 5,000 UNIT/ML 1 ML VIAL SQ SCH ×2 (08:47→20:45)
[2019-02-11] MEDS: CALCIUM CARBONATE 500 MG CHEWABLE PO SCH (08:58)
[2019-02-11] MEDS: CHOLECALCIFEROL 1,000 UNIT TAB PO SCH (08:58)
[2019-02-11] MEDS: MAGNESIUM OXIDE 400 MG TAB PO SCH (08:58)
[2019-02-11] MEDS: FERROUS SULFATE 325 MG TAB PO SCH ×2 (08:58→17:04)
--- NOTE | 2019-02-11 13:27 | P.PN ---
Subjective Progress Note Date: 02/11/19 Principal diagnosis: Status post left total hip arthroplasty/hardware removal left proximal femur Patient notes continued urinary retention and Erazo was replaced yesterday. She denies shortness of breath/dizziness with ambulation. Objective - Vital Signs Vital signs: Vital Signs Temp 98.5 F 02/11/19 07:04 Pulse 70 02/11/19 07:04 Resp 16 02/11/19 07:04 BP 117/58 02/11/19 07:04 Pulse Ox 94 L 02/11/19 07:04 Intake & Output 02/10/19 02/11/19 02/11/19 18:59 06:59 18:59 Intake Total 230 Output Total 1625 1999 Balance -162 -1999 230 Intake: Oral 230 Output: Urine 1425 2000 Uretheral (Erazo) 1000 Post Void Residual 200 Other: Voiding Method Indwelling Catheter Indwelling Catheter # Voids 1 - Exam Left hip incision clean/dry/intact Neurovascular exam intact left lower extremity Alejandro's negative left lower extremity - Labs CBC & Chem 7: 02/11/19 06:13 02/08/19 07:11 Labs: Abnormal Lab Results - Last 24 Hours (Table) 02/11/19 Range/Units 06:13 RBC 2.18 L (3.80-5.40) m/uL Hgb 7.2 L (11.4-16.0) gm/dL Hct 21.4 L (34.0-46.0) % RDW 16.2 H (11.5-15.5) % Assessment and Plan Assessment: Status post left total hip prosthesis/hardware removal left proximal femur Acute blood loss anemia Urinary retention Plan: Discontinue Erazo today. Recheck hemoglobin in the morning. Potential rehab tomorrow. Subcu heparin for DVT prophylaxis. Time with Patient: Less than 30
[2019-02-11] MEDS ORDERED: BISACODYL 10 MG SUPP RECTAL PRN (13:29)
--- NOTE | 2019-02-11 13:40 | P.PN ---
Subjective Progress Note Date: 02/11/19 Principal diagnosis: Medical management Patient was seen and examined. No acute events overnight. Patient reports well controlled pain in her left hip, currently 4-5/10 in severity. She denies any chest pain, shortness of breath or palpitations. No nausea or vomiting. No fe maryse or chills. Some difficulty urinating last night, Erazo catheter placed, patient requesting for removal this morning. Objective - Vital Signs Vital signs: Vital Signs Temp 98.5 F 02/11/19 07:04 Pulse 70 02/11/19 07:04 Resp 16 02/11/19 07:04 BP 117/58 02/11/19 07:04 Pulse Ox 94 L 02/11/19 07:04 Intake & Output 02/10/19 02/11/19 02/11/19 18:59 06:59 18:59 Intake Total 230 Output Total 1625 2000 Balance -1625 -1999 230 Intake: Oral 230 Output: Urine 1425 2000 Uretheral (Erazo) 1000 Post Void Residual 200 Other: Voiding Method Indwelling Catheter Indwelling Catheter # Voids 1 - Exam General: [non toxic], [no distress], [appears at stated age] Derm: [warm], [dry] Head: [atraumatic], [normocephalic], [symmetric] Eyes: [EOMI], [no lid lag], [anicteric sclera] Mouth: [no lip lesion], [mucus membranes moist] Cardiovascular: [S1S2 reg], [no murmur], [positive DP pulse bilateral] Lungs: [CTA bilateral], [no rhonchi, no rales] , [no accessory muscle use] Abdominal: [soft], [ nontender to palpation], [no guarding], [no appreciable organomegaly] Ext: [no gross muscle atrophy], [no edema], [no contractures], [left hip dressing clean dry and intact, mild erythema and swelling at the site] Neuro: [left lower extremity limited range of motion at the hip due to pain] Psych: [Alert], [oriented], [appropriate affect] - Labs CBC & Chem 7: 02/11/19 06:13 02/08/19 07:11 Labs: Abnormal Lab Results - Last 24 Hours (Table) 02/11/19 Range/Units 06:13 RBC 2.18 L (3.80-5.40) m/uL Hgb 7.2 L (11.4-16.0) gm/dL Hct 21.4 L (34.0-46.0) % RDW 16.2 H (11.5-15.5) % Assessment and Plan Assessment: Acute blood loss anemia Hyponatremia Hypothyroidism 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 Stable. Expected result of surgery. Plans: Repeat CBC tomorrow morning. Transfuse if hemoglobin less than 7. Sodium 133. Likely due to dehydration. Plans: Continue normal saline at 75 mL per hour. Repeat BMP tomorrow morning. Plans: Resume Synthroid. Plans: Management as per orthopedic surgery. [Plans for DC to rehab on Tuesday. Hemoglobin maintaining stable. Thank you for this consult. Please call with any additional questions or concerns.]
[2019-02-11] MEDS: SENNOSIDES-DOCUSATE SODIUM 1 EACH TAB PO SCH (20:44)
[2019-02-11 20:47] VITALS: RESP 16
[2019-02-12 01:43] VITALS: BP 124/68; TEMP 98.6
[2019-02-12] MEDS: HYDROcodone/APAP 5-325MG 1 EACH TAB PO SCH ×3 (02:05→14:17)
[2019-02-12] MEDS: SODIUM CHLORIDE 0.9% 1,000 ML IV SCH (03:20)
[2019-02-12] MEDS: LEVOTHYROXINE 50 MCG TAB PO SCH (06:15)
[2019-02-12 07:19] VITALS: PULSE 74
[2019-02-12 07:44] LABS: Basophils % (A) 0 %; Eosinophils # (A) 0.1 k/uL (0-0.7); Eosinophils % (A) 2 %; HCT 23.6 % (34.0-46.0); Lymphocytes # (A) 0.9 k/uL (1.0-4.8); Lymphocytes % (A) 21 %; MCH 33.3 pg (25.0-35.0); MCHC 33.8 g/dL (31.0-37.0); MCV 98.8 fL (80.0-100.0); Macrocytosis Slight; Mean Platelet Volume 7.7; Monocytes # (A) 0.3 k/uL (0-1.0); Monocytes % (A) 7 %; Neutrophils # (A) 2.9 k/uL (1.3-7.7); Neutrophils % (A) 67 %; Platelet Count 321 k/uL (150-450); RBC 2.39 m/uL (3.80-5.40); RDW 15.9 % (11.5-15.5); WBC 4.3 k/uL (3.8-10.6)
[2019-02-12 07:55] LABS: African American GFR (CKD) >90 (>60 ml/min/1.73 sqM); Anion Gap 3 mmol/L; Blood Urea Nitrogen 8 mg/dL (7-17); Calcium 8.2 mg/dL (8.4-10.2); Carbon Dioxide 28 mmol/L (22-30); Chloride 103 mmol/L (98-107); Glucose 93 mg/dL (74-99); Non-African American GFR(CKD) 87 (>60 ml/min/1.73 sqM); Sodium 134 mmol/L (137-145)
[2019-02-12] MEDS: CALCIUM CARBONATE 500 MG CHEWABLE PO SCH (08:10)
[2019-02-12] MEDS: FERROUS SULFATE 325 MG TAB PO SCH (08:10)
[2019-02-12] MEDS: MAGNESIUM OXIDE 400 MG TAB PO SCH (08:10)
[2019-02-12] MEDS: CHOLECALCIFEROL 1,000 UNIT TAB PO SCH (08:10)
[2019-02-12] MEDS: HEPARIN SODIUM,PORCINE 5,000 UNIT/ML 1 ML VIAL SQ SCH (10:12)
--- NOTE | 2019-02-12 11:58 | P.DS ---
Providers Date of admission: 02/06/19 10:45 Expected date of discharge: 02/12/19 Attending physician: Wellington Plascencia Consults: 02/06/19 10:42 Consult Physician Urgent Consulting Provider: Lan Meza Consult Reason/Comments: medical Do you want consulting provider notified?: Yes Primary care physician: Jn Morris [place] Hospital Course: Date of Admission: 02/06/2019 Date of Discharge: 02/07/2019 Admission diagnosis: Avascular necrosis left femoral head, hardware failure left hip, left hip osteoarthritis Discharge diagnosis: s/p hardware removal left hip, left total hip arthroplasty Surgical procedure: Hardware removal left hip, left total hip arthroplasty Surgeon: Dr. Plascencia History: Patient is a 88 year old female who presented to [facility] with worsening left hip pain. She has a history of a previous left intertrochanteric femur fracture 2 years ago where she underwent a hip compression screw surgery. 2 months ago patient was noted to have protrusion of the compression screw through femoral head, she then underwent a revision procedure. She presented on 02/06/2019 with worsening hip pain, no traumatic event. Xray demonstrated failure of the components, she was admitted with plan for surgical intervention. Hospital course: After admission, she was cleared by internal medicine for surgery which took place on 02/07/2019. Please see operative note for further detail. She had daily PT and labratory testing. She was noted to have acute blood loss anemia, she underwent a transfusion of 1 unit of packed RBCs. She was also noted to have urinary retention postoperatively, this did improve. Anticoagulation was daily with heparin 5000 units q12 hours. Medication: Patient will be prescribed Ryder 5mg/325mg, tramadol 50mg, Colace 100mg, Ferrous Sulfate 325mg, and Heparin 5000 unit at discharge Discharge instructions: 1. Resume home medications after discharge 2. Pain medication and anticoagulation as instructed 3. Weightbear as tolerated with walker 4. Ice and elevate the leg often 5. Keep incision covered and dry while showering 6. Follow up at [facility] in 3 weeks, Procedures: Left total hip arthroplasty, hardware removal left proximal femur Patient Condition at Discharge: Fair Plan - Discharge Summary Discharge Rx Participant: No New Discharge Prescriptions: New Docusate [Colace] 100 mg PO DAILY #30 capsule Heparin Sodium,Porcine [Heparin Sodium] 5,000 unit SQ Q12HR #60 vial Hydrocodone/Acetaminophen [Ryder 5-325] 1 - 2 each PO Q6HR PRN #56 tab PRN Reason: Pain traMADol HCl [Ultram] 50 mg PO Q6H PRN #28 tab PRN Reason: Pain Ferrous Sulfate [Iron (65 MG Elemental)] 325 mg PO BID-W/MEALS #60 tab Continue Levothyroxine Sodium [Synthroid] 50 mcg PO DAILY Magnesium 200 mg PO DAILY Cholecalciferol [Vitamin D3 (25 Mcg = 1000 Iu)] 1,000 unit PO DAILY Vit C/E/Zn/Coppr/Lutein/Zeaxan [Preservision Areds 2 Softgel] 1 cap PO DAILY Calcium Carbonate [Calcium] 600 mg PO DAILY Discharge Medication List Levothyroxine Sodium [Synthroid] 50 mcg PO DAILY 11/20/16 [History] Calcium Carbonate [Calcium] 600 mg PO DAILY 02/06/19 [History] Cholecalciferol [Vitamin D3 (25 Mcg = 1000 Iu)] 1,000 unit PO DAILY 02/06/19 [History] Magnesium 200 mg PO DAILY 02/06/19 [History] Vit C/E/Zn/Coppr/Lutein/Zeaxan [Preservision Areds 2 Softgel] 1 cap PO DAILY 02/06/19 [History] Docusate [Colace] 100 mg PO DAILY #30 capsule 02/09/19 [Rx] Heparin Sodium,Porcine [Heparin Sodium] 5,000 unit SQ Q12HR #60 vial 02/09/19 [Rx] Hydrocodone/Acetaminophen [Ryder 5-325] 1 - 2 each PO Q6HR PRN #56 tab 02/09/19 [Rx] traMADol HCl [Ultram] 50 mg PO Q6H PRN #28 tab 02/09/19 [Rx] Ferrous Sulfate [Iron (65 MG Elemental)] 325 mg PO BID-W/MEALS #60 tab 02/12/19 [Rx] Follow up Appointment(s)/Referral(s): Jn Morris MD [Primary Care Provider] - 1-2 days Hunter Hu PAC [PHYSICIAN [employer]] - 3 Weeks Activity/Diet/Wound Care/Special Instructions: Orthopedic Discharge Instructions: 1. Wound care and infection precautions, keep incision dry and covered while showerin, no lotions, creams, moisturizers. No soaking, pools, hot tubs. Do not scrub over incision. 2. Weight-bear as tolerated with walker / cane until follow-up. 3. Ice and elevate when necessary. Do not exceed 20 minutes per hour with ice pack. 4. Utilize compression sleeve until seen at first follow up appointment. 5. Pain meds and anticoagulants per prescription. 6. Pain medication has potential to cause constipation. Increase oral fluid and fiber intake. Contact primary care provider if you have not had a bowel movement within 48 hours after discharge. 7. No anti-inflammatory medication until discussed at first post operative visit, this including Motrin, Aleve, Mobic, Diclofenac 8. Follow up in office at 2 weeks postop with David Hu PA-C 9. Follow up with your primary care doctor 7-10 days after discharge. 10. Contact [facility] with any questions, . Discharge Disposition: TRANSFER TO SNF/ECF
--- NOTE | 2019-02-12 18:50 | P.PN ---
Subjective Progress Note Date: 02/11/19 Principal diagnosis: Medical management Patient was seen and examined. No acute events overnight. Patient reports well controlled pain in her left hip. She denies any chest pain, shortness of breath or palpitations. No nausea or vomiting. No fever or chills. Objective - Vital Signs Vital signs: Vital Signs Temp 98.5 F 02/11/19 07:04 Pulse 70 02/11/19 07:04 Resp 16 02/11/19 07:04 BP 117/58 02/11/19 07:04 Pulse Ox 94 L 02/11/19 07:04 Intake & Output 02/10/19 02/11/19 02/11/19 18:59 06:59 18:59 Intake Total 50 Output Total 1625 1999 Balance -1624 -1999 50 Intake: Oral 50 Output: Urine 1425 1999 Uretheral (Erazo) 1000 Post Void Residual 200 Other: Voiding Method Indwelling Catheter Indwelling Catheter # Voids 1 - Exam General: [non toxic], [no distress], [appears at stated age] Derm: [warm], [dry] Head: [atraumatic], [normocephalic], [symmetric] Eyes: [EOMI], [no lid lag], [anicteric sclera] Mouth: [no lip lesion], [mucus membranes moist] Cardiovascular: [S1S2 reg], [no murmur], [positive DP pulse bilateral] Lungs: [CTA bilateral], [no rhonchi, no rales] , [no accessory muscle use] Abdominal: [soft], [ nontender to palpation], [no guarding], [no appreciable organomegaly] Ext: [no gross muscle atrophy], [no edema], [no contractures] Neuro: [ CN II-XI grossly intact], [left lower travis limited range of motion at the hip due to pain] Psych: [Alert], [oriented], [appropriate affect] - Labs CBC & Chem 7: 02/12/19 07:10 02/12/19 07:10 Labs: Abnormal Lab Results - Last 24 Hours (Table) 02/11/19 Range/Units 06:13 RBC 2.18 L (3.80-5.40) m/uL Hgb 7.2 L (11.4-16.0) gm/dL Hct 21.4 L (34.0-46.0) % RDW 16.2 H (11.5-15.5) % Assessment and Plan Assessment: Acute blood loss anemia Hyponatremia Hypothyroidism 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 Stable. Expected result of surgery. Plans: Repeat CBC tomorrow morning. Transfuse if hemoglobin less than 7. Sodium 133. Likely due to dehydration. Plans: Continue normal saline at 75 mL per hour. Repeat BMP tomorrow morning. Plans: Resume Synthroid. Plans: Management as per orthopedic surgery. [Plans for DC to rehab on Tuesday. Hemoglobin maintaining stable. Thank you for this consult. Please call with any additional questions or concerns.]
== END 2019-02-12 14:35 | DRG 470 ==
LOC: EC 08:53 → 6NMEDSUR 10:45 → 4SSUR 02-07 16:37
PROVIDERS: ADMIT Orthopaedic Surgery; ATTEND Orthopaedic Surgery
PROC: 0SPB04Z Removal of Internal Fixation Device from Left Hip Joint, Open Approach (ICD-10-PCS; 2019-02-07)
PROC: 0SRB02Z Replacement of Left Hip Joint with Metal on Polyethylene Synthetic Substitute, Open Approach (ICD-10-PCS; principal; 2019-02-07 08:00)
PROC: 30233N1 Transfusion of Nonautologous Red Blood Cells into Peripheral Vein, Percutaneous Approach (ICD-10-PCS; 2019-02-08)
DX: T84.195A Other mechanical complication of internal fixation device of left femur, initial encounter (principal); D62 Acute posthemorrhagic anemia; E87.1 Hypo-osmolality and hyponatremia; M87.9 Osteonecrosis, unspecified; E03.9 Hypothyroidism, unspecified; E86.0 Dehydration; M16.12 Unilateral primary osteoarthritis, left hip; M41.9 Scoliosis, unspecified; H35.30 Unspecified macular degeneration; R33.9 Retention of urine, unspecified; R41.3 Other amnesia; Z79.890 Hormone replacement therapy; Z79.899 Other long term (current) drug therapy; Z87.891 Personal history of nicotine dependence; Z87.81 Personal history of (healed) traumatic fracture; Z96.641 Presence of right artificial hip joint; Z87.440 Personal history of urinary (tract) infections; Z90.49 Acquired absence of other specified parts of digestive tract; Z82.49 Family history of ischemic heart disease and other diseases of the circulatory system
CPT/HCPCS: 73501; 73502; 80048; 80053; 85025; 85027; 85610; 86850; 86891; 86900; 86901; 86920; 88305; 88311; 96374; 96375; 99284